=== PATIENT | female | born 1965 | race Caucasian/White ===

== ENCOUNTER 2018-03-26 16:59 | Emergency (ER) | payer BC ==
[2018-03-26 18:14] LABS: Absolute Lymphocytes (CBC) 1.6 K/uL (0.7-4.9); Absolute Monocytes 0.7 K/uL (0.1-1.3); Absolute Neutrophil 6.9 K/uL (1.8-8.0); Basophils % 0.8 % (0-1.3); Eosinophils % 0.7 % (0-4.4); Hematocrit 31.3 % (36.0-45.0); Lymphocytes % 16.9 % (15.3-44.8); MCH 28.6 pg (27.0-35.0); MPV 7.4 fL (7.6-11.3); Monocytes % 7.6 % (3.3-12.3)
[2018-03-26 18:16] LABS: Urine Blood NEGATIVE (NEG); Urine Glucose NEGATIVE (NEG); Urine Protein NEGATIVE (NEG); Urine Specific Gravity 1.025 (1.005-1.030); Urine pH 5.5 (5.0-7.0)
[2018-03-26] MEDS ORDERED: ONDANSETRON 4 MG/2 ML VIAL ONE (18:18)
[2018-03-26] MEDS ORDERED: MORPHINE 4 MG/ML SYR ONE (18:18)
[2018-03-26] MEDS ORDERED: NA CHLORIDE 0.9% 1,000 ML ONE (18:18)
[2018-03-26 18:25] LABS: Urine RBC NONE SEEN /HPF (NONE SEEN)
[2018-03-26 18:26] LABS: Urine Bacteria 20-50 /HPF (<20); Urine Culture Reflex Order NOT NEEDED; Urine Mucus 3+ /HPF (NONE SEEN)
[2018-03-26 18:31] LABS: ALT/SGPT 18 U/L (12-78); AST/SGOT 12 U/L (15-37); Alkaline Phosphatase 78 U/L (45-117); Amylase Level 55 U/L (25-115); BUN Blood Urea Nitrogen 7 mg/dL (7-18); Bicarbonate 28 mmol/L (21-32); Bilirubin Direct 0.1 mg/dL (0-0.2); Bilirubin Total 0.3 mg/dL (0.2-1.0); Glucose Level 92 mg/dL (74-106); Lipase 167 U/L (73-393); Potassium 3.6 mmol/L (3.5-5.1); Protein, Total 7.4 g/dL (6.4-8.2); Sodium Level 139 mmol/L (136-145)
--- NOTE | 2018-03-26 18:31 | RAD REPORT ---
EXAM DESCRIPTION: US - Abdomen Exam Limited - 03/26/2018 6:24 pm CLINICAL HISTORY: RUQ pain COMPARISON: Abdomen Exam Limited dated 12/07/2016 FINDINGS: The gallbladder demonstrates sludge and gallstones. No pericholecystic fluid or gallbladde r wall thickening. The common bile duct is normal measuring 4 mm. The liver demonstrates no findings of intrahepatic biliary dilatation. IMPRESSION: Cholelithiasis.
--- NOTE | 2018-03-26 19:59 | ER ---
Nurse's Notes [facility] Name: Stephanie Doshi Age: 53 yrs Sex: Female : 1965 Arrival Date: 03/26/2018 Time: 17:02 Bed 28 Private MD: Jamie Conti Diagnosis: Pain localized to upper abdomen Presentation: 03/26 17:09 Presenting complaint: Patient states: rectal bleeding, N/V, generalized abd pain that aa5 began today. Pt states "I am having a Crohns flare up". Transition of care: patient was not received from another setting of care. Onset of symptoms was March 26, 2018. Risk Assessment: Do you want to hurt yourself or someone else? Patient reports no desire to harm self or others. Initial Sepsis Screen: Does the patient meet any 2 criteria? No. Patient's initial sepsis screen is negative. Does the patient have a suspected source of infection? No. Patient's initial sepsis screen is negative. Care prior to arrival: None. 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 - Social history:: Smoking status: Patient uses tobacco products, 1 pack/week, Patient/guardian denies using alcohol, street drugs, The patient lives with family. - Ebola Screening: : No symptoms or risks identified at this time. - Family history:: not pertinent. Screenin:38 Abuse screen: Denies threats or abuse. Denies injuries from another. Nutritional kr2 screening: No deficits noted. Tuberculosis screening: No symptoms or risk factors identified. Fall Risk None identified. Assessment: 17:35 General: Appears in no apparent distress. uncomfortable, well groomed, well developed, kr2 well nourished, Behavior is calm, cooperative, appropriate for age. Pain: Complains of pain in abdomen Pain currently is 9 out of 10 on a pain scale. Quality of pain is described as crampy, tender, Pain began February 22, patient was seen by Dr. Nicole on March 04, given medications for colitis flare up, but has not had any improvement. Neuro: Level of Consciousness is awake, alert, obeys commands, Oriented to person, place, time, situation, Appropriate for age. Cardiovascular: Capillary refill < 3 seconds in bilateral fingers Patient's skin is warm and dry. Respiratory: Airway is patent Respiratory effort is even, unlabored, Respiratory pattern is regular, symmetrical. GI: Abdomen is flat, non-distended, Bowel sounds present X 4 quads. Abd is soft X 4 quads Abdomen is tender to palpation X 4 quads. Reports diarrhea, bloody stool, tarry stools. : Denies burning with urination. Derm: Skin is intact, is healthy with good turgor, Skin is pink, warm \\T\\ dry. Musculoskeletal: Circulation, motion, and sensation intact. 17:50 Reassessment: Patient appears in no apparent distress at this time. Patient and/or kr2 family updated on plan of care and expected duration. Pain level reassessed. Patient is alert, oriented x 3, equal unlabored respirations, skin warm/dry/pink. Patient had bowel movement, black tarry stool, sample collected and shown to provider, Dr. Mcclendon. Provider does not want to send sample for laboratory testing at this time. 18:45 Reassessment: Patient appears in no apparent distress at this time. Patient and/or kr2 family updated on plan of care and expected duration. Pain level reassessed. Patient is alert, oriented x 3, equal unlabored respirations, skin warm/dry/pink. Pain has decreased. 20:12 Reassessment: Patient appears in no apparent distress at this time. Patient and/or kr2 family updated on plan of care and expected duration. Pain level reassessed. Patient is alert, oriented x 3, equal unlabored respirations, skin warm/dry/pink. Patient states feeling better. Vital Signs: 17:11 BP 158 / 99; Pulse 93; Resp 16 S; Temp 98.0(TE); Pulse Ox 98% on R/A; Weight 63.5 kg aa5 (R); Height 5 ft. 2 in. (157.48 cm) (R); Pain 9/10; 18:45 BP 144 / 88; Pulse 80; Resp 17; Pulse Ox 97% on R/A; kr2 20:13 BP 136 / 86; Pulse 80; Resp 17; Pulse Ox 99% on R/A; kr2 17:11 Body Mass Index 25.61 (63.50 kg, 157.48 cm) aa5 ED Course: 17:02 Patient arrived in ED. mr 17:02 Jamie Conti MD is Private Physician. mr 17:09 Arm band placed on. aa5 17:10 Triage completed. aa5 17:15 Zuly Eckert, WOLF is Primary Nurse. kr2 17:38 Patient has correct armband on for positive identification. Bed in low position. Call kr2 light in reach. Side rails up X 1. Pulse ox on. NIBP on. Door closed. Lights dimmed. Warm blanket given. Pillow given. Head of bed elevated. 17:47 Ron Mcclendon MD is Attending Physician. ma2 17:55 Inserted saline lock: 20 gauge in left antecubital area, using aseptic technique. Blood kr2 collected. 17:55 Urine collected: clean catch specimen, clear. kr2 18:24 US Abdomen Limited In Process Unspecified. EDMS 20:12 No provider procedures requiring assistance completed. IV discontinued, intact, kr2 bleeding controlled, No redness/swelling at site. Pressure dressing applied. Administered Medications: 18:26 Drug: Zofran 4 mg Route: IVP; Site: left antecubital; kr2 18:46 Follow up: Response: No adverse reaction; Nausea is decreased kr2 18:26 Drug: morphine 4 mg Route: IVP; Site: left antecubital; kr2 18:46 Follow up: Response: No adverse reaction kr2 18:46 Follow up: Response: Pain is decreased kr2 18:27 Drug: NS 0.9% 1000 ml Route: IV; Rate: 1 bolus; Site: left antecubital; kr2 19:30 Follow up: Response: No adverse reaction; IV Status: Completed infusion kr2 Outcome: 19:58 Discharge ordered by . ma2 20:12 Discharged to home ambulatory, with family. kr2 20:12 Condition: stable 20:12 Discharge instructions given to patient, family, Instructed on discharge instructions, follow up and referral plans. medication usage, Demonstrated understanding of instructions, follow-up care, medications, Prescriptions given X 2. 20:14 Patient left the ED. kr2 Signatures: Dispatcher [employer] [facility] Monique Avery mr AdamGaye, RN RN aa5 Zuly Eckert RN RN kr2 Ron Mcclendon MD MD ma2 Corrections: (The following items were deleted from the chart) 18:42 17:35 GI: Abdomen is flat, non-distended, Bowel sounds present X 4 quads. Abd is soft X kr2 4 quads Abdomen is tender to palpation X 4 quads. kr2
--- NOTE | 2018-03-26 19:59 | EDPHYS ---
Physician Documentation [facility] Name: Stephanie Doshi Age: 53 yrs Sex: Female : 1965 Arrival Date: 03/26/2018 Time: 17:02 Bed 28 Private MD: Jamie Conti ED Physician Ron Mcclendon HPI: 03/26 17:59 This 53 yrs old Female presents to ER via Ambulatory with complaints of ma2 Rectal Bleeding. 17:59 Onset: The symptoms/episode began/occurred gradually, 2 week(s) ago. Modifying factors: ma2 The symptoms are aggravated by food. Associate signs and symptoms: Pertinent positives: abdominal pain in the epigastric area, vomiting, Pertinent negatives: dysuria, fever. The patient has not experienced similar symptoms in the past. hx of crohns d/s has been having abd pain and melena for 2 weeks saw her gi and was started on abx and completed 5 days of prednisone, yet her pain got worse and started to have vomiting today, has been having melena x 2 weeks, no fever no symptoms of anemia . 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 - Social history:: Smoking status: Patient uses tobacco products, 1 pack/week, Patient/guardian denies using alcohol, street drugs, The patient lives with family. - Ebola Screening: : No symptoms or risks identified at this time. - Family history:: not pertinent. ROS: 17:59 Constitutional: Negative for fever, chills, and weight loss, Eyes: Negative for injury, ma2 pain, redness, and discharge, ENT: Negative for injury, pain, and discharge, Cardiovascular: Negative for chest pain, palpitations, and edema, Respiratory: Negative for shortness of breath, cough, wheezing, and pleuritic chest pain, : Negative for injury, bleeding, discharge, and swelling, MS/Extremity: Negative for injury and deformity, Neuro: Negative for headache, weakness, numbness, tingling, and seizure. 17:59 Abdomen/GI: Positive for abdominal pain, vomiting, abdominal cramps, black/tarry stool, Negative for constipation, hematemesis. Exam: 17:59 Constitutional: This is a well developed, well nourished patient who is awake, alert, ma2 and in no acute distress. Head/Face: Normocephalic, atraumatic. Chest/axilla: Normal chest wall appearance and motion. Nontender with no deformity. No lesions are appreciated. Cardiovascular: Regular rate and rhythm with a normal S1 and S2. No gallops, murmurs, or rubs. Normal PMI, no JVD. No pulse deficits. Respiratory: Lungs have equal breath sounds bilaterally, clear to auscultation and percussion. No rales, rhonchi or wheezes noted. No increased work of breathing, no retractions or nasal flaring. 17:59 Abdomen/GI: Inspection: abdomen appears normal, Palpation: soft, moderate abdominal tenderness, in the epigastric area and right upper quadrant, Liver: no appreciated palpable abnormalities, Hernia: not appreciated. Vital Signs: 17:11 BP 158 / 99; Pulse 93; Resp 16 S; Temp 98.0(TE); Pulse Ox 98% on R/A; Weight 63.5 kg aa5 (R); Height 5 ft. 2 in. (157.48 cm) (R); Pain 9/10; 18:45 BP 144 / 88; Pulse 80; Resp 17; Pulse Ox 97% on R/A; kr2 20:13 BP 136 / 86; Pulse 80; Resp 17; Pulse Ox 99% on R/A; kr2 17:11 Body Mass Index 25.61 (63.50 kg, 157.48 cm) aa5 MDM: 17:47 Patient medically screened. ma2 17:59 Differential diagnosis: cohns flare, GE, gastritis vs PUD, vs acute pan. ma2 19:57 Data reviewed: vital signs, nurses notes, EMS record, intermediate records, lab test ma2 result(s), radiologic studies. Counseling: I had a detailed discussion with the patient and/or guardian regarding: the historical points, exam findings, and any diagnostic results supporting the discharge/admit diagnosis, the presence of at least one elevated blood pressure reading (>120/80) during this emergency department visit, lab results, radiology results, the need for outpatient follow up. Response to treatment: the patient's symptoms have resolved after treatment. 03/26 17:48 Order name: Amylase, Serum; Complete Time: 19:48 ma2 03/26 17:48 Order name: Basic Metabolic Panel; Complete Time: 19:48 ma2 03/26 17:48 Order name: CBC with Diff; Complete Time: 19:48 ma2 03/26 17:48 Order name: Creatinine for Radiology; Complete Time: 19:48 ma2 03/26 17:48 Order name: Hepatic Function; Complete Time: 19:48 ma2 03/26 17:48 Order name: Lipase; Complete Time: 19:48 ma2 03/26 17:48 Order name: Urine Microscopic Only; Complete Time: 19:48 ma2 03/26 17:48 Order name: IV Saline Lock; Complete Time: 17:57 ma2 03/26 17:48 Order name: Type And Screen; Complete Time: 19:48 ma2 03/26 17:59 Order name: US Abdomen Limited; Complete Time: 19:48 ma2 03/26 18:07 Order name: Urine Dipstick--Ancillary (enter results); Complete Time: 19:48 bd 03/26 17:48 Order name: Labs collected and sent; Complete Time: 17:57 ma2 03/26 17:48 Order name: Urine Dipstick-Ancillary (obtain specimen); Complete Time: 18:21 ma2 Administered Medications: 18:26 Drug: Zofran 4 mg Route: IVP; Site: left antecubital; kr2 18:46 Follow up: Response: No adverse reaction; Nausea is decreased kr2 18:26 Drug: morphine 4 mg Route: IVP; Site: left antecubital; kr2 18:46 Follow up: Response: No adverse reaction kr2 18:46 Follow up: Response: Pain is decreased kr2 18:27 Drug: NS 0.9% 1000 ml Route: IV; Rate: 1 bolus; Site: left antecubital; kr2 19:30 Follow up: Response: No adverse reaction; IV Status: Completed infusion kr2 Disposition: 03/26/18 19:58 Discharged to Home. Impression: Pain localized to upper abdomen. - Condition is Stable. - Prescriptions for Zofran 4 mg Oral Tablet - take 1 tablet by ORAL route every 12 hours As needed; 20 tablet. Pepcid 20 mg Oral Tablet - take 1 tablet by ORAL route once daily for 10 days; 10 tablet. - Work release form, Medication Reconciliation Form, Thank You Letter, Antibiotic Education, Prescription Opioid Use form. - Follow up: Private Physician; When: Tomorrow; Reason: Continuance of care. - Problem is new. - Symptoms have improved. Signatures: Dispatcher [employer] [facility] Gaye Medina RN RN aa5 Zuly Eckert RN RN kr2 Ron Mcclendon MD MD ma2 Corrections: (The following items were deleted from the chart) 20:14 19:58 03/26/2018 19:58 Discharged to Home. Impression: Pain localized to upper abdomen. kr2 Condition is Stable. Forms are Medication Reconciliation Form, Thank You Letter, Antibiotic Education, Prescription Opioid Use. Follow up: Private Physician; When: Tomorrow; Reason: Continuance of care. Problem is new. Symptoms have improved. ma2
[2018-03-26 20:19] VITALS: TEMP 98
[2018-03-26 20:22] VITALS: BP 136/86; O2SAT 99
== END 2018-03-26 20:14 | disposition home or self-care (01) ==
LOC: ER 16:59
DX: R10.10 Upper abdominal pain, unspecified (principal); K50.90 Crohn's disease, unspecified, without complications; Z72.0 Tobacco use; Z88.5 Allergy status to narcotic agent
CPT/HCPCS: 36415; 76705; 80048; 80076; 81003; 81015; 82150; 83690; 85025; 86850; 86900; 86901; 96361; 96374; 96375; 99284; J2405; J7030

== ENCOUNTER 2019-03-12 19:24 | Inpatient (IN) | payer BC ==
[2019-03-12 21:14] LABS: Absolute Lymphocytes (CBC) 1.8 K/uL (0.7-4.9)
[2019-03-12 21:29] LABS: Basophils % 0.4 % (0-1.3); Lymphocytes % 14.8 % (15.3-44.8); MPV 7.8 fL (7.6-11.3); RBC Red Blood Cell Count 3.77 M/uL (3.86-4.86)
[2019-03-12 21:30] LABS: Albumin 3.1 g/dL (3.4-5.0); Bilirubin Total 0.3 mg/dL (0.2-1.0); Potassium 3.8 mmol/L (3.5-5.1); Protein, Total 8.5 g/dL (6.4-8.2)
[2019-03-12] MEDS ORDERED: SODIUM CHLORIDE 0.9% 10ML INJ IV PRN (21:48)
[2019-03-12] MEDS ORDERED: ACETAMINOPHEN 500 MG TAB PO PRN (21:51)
[2019-03-12] MEDS ORDERED: MAGNESIUM HYDROXIDE 8% 30 ML PO PRN (21:51)
[2019-03-12] MEDS ORDERED: MAGNES/ALUMIN/SIMET 30ML UCUP PO PRN (21:51)
[2019-03-12 22:11] VITALS: BMI 27.3
[2019-03-12] MEDS: D5 0.9 NS 1,000 ML IV SCH (22:29)
[2019-03-12] MEDS: Levofloxacin500mg IV 500 MG/100 ML BAG IV SCH (22:41)
[2019-03-12] MEDS: ONDANSETRON 4 MG/2 ML VIAL IV PRN (22:41)
[2019-03-12] MEDS: MEPERIDINE HCL 25 MG/0.5 ML IV PRN (22:42)
[2019-03-12 23:53] LABS: Ferritin 80.2 ng/mL (8-388); Folic Acid, (Folate) > 20.0 ng/mL (3.1-17.5); Transferrin 245 mg/dL (200-360)
[2019-03-13] MEDS: METRONIDAZOLE 500mg IVPB 500 MG/100 ML BAG IV SCH ×3 (00:38→16:31)
[2019-03-13] MEDS: ALPRAZOLAM 0.25 MG TABLET PO PRN (00:39)
--- NOTE | 2019-03-13 04:22 | HP ---
Date of Admission: 03/12/2019 Chief Complaint: Abdominal pain. History Of Present Illness: This is a 54-year-old pleasant female patient with ulcerative colitis wh o has been under care of Dr. Nicole. The patient takes azathioprine and budesonide per Dr. Nicole. She was on Humira, but she stopped taking it as it was not helping her. The patient says that since Humira was not helping, Dr. Nicole has suggested her to start different medication called cherelle Wagner this medication treatment is very expensive. She saw Dr. Nicole last time was over a month ago. I n last 2 weeks, she was having left-sided abdominal pain, reported as having hard stool in the last f ew days, but today she had soft stool. Denies any bleeding per rectum. Last week, she felt like hav ing fever and she was not getting any better further, so she decided to come see me. She also inform ed me that she is going to change her GI physician to a different GI specialist in [facility], Dr. Candy hong, as she got some recommendation from her friend. She denies any vomiting, but has nausea. Her pain is worse today compared to last 2 weeks, and she describes her pain as constant, worse with acti vity. Has very poor appetite. After I evaluated her, decision was made to admit her to the hospital . Allergies: TO CODEINE, HYDROCODONE, AND MORPHINE, AND ALL THESE MEDICATIONS CAUSES NAUSEA, VOMITING TYPE OF SIDE EFFECT. Medications: Omeprazole 20 mg daily, sertraline 25 mg daily, Caltrate plus D 1 tablet 2 times a day, budesonide 3 mg 3 times a day, azathioprine 50 mg 3 times a day. Review of Systems: GI: As mentioned above. Constitutional: As mentioned above. All other systems reviewed and negative. Past Medical History: Ulcerative colitis, anxiety, depression, impaired fasting glucose, hypothyroid ism, hyperlipidemia. Past Surgical History: Tubal ligation. Family History: Significant for hypertension and diabetes. Social History: Negative for smoking, alcohol use. Physical Examination: Vital Signs: When she came into office today, height 5 feet 2 inches, weight 150 pounds, blood press ure 121/81, respiratory rate 18, pulse 105, temperature 97.2. General: Awake, alert, oriented, not in distress. HEENT: Head atraumatic, normocephalic. Conjunctivae nonerythematous. Sclerae white. Mouth, no thr ush or edema noted. Ears/Nose, no mass, lesion, discharge noted. Neck: Supple. No JVD, lymph nodes, bruit, thyromegaly noted. Lungs: Bilateral good equal air entry. Clear to auscultation. No rhonchi. No rales. Heart: Normal heart sounds, no murmur or gallop. Abdomen: Soft. Bowel sounds hypoactive. Abdomen appears to be distended and has severe tenderness in left upper and left lower quadrant, and no rebound tenderness. No hepatosplenomegaly. No bruit. Extremities: No leg edema. No calf tenderness. Skin: No rash, ulcer, cellulitis. Lymphatics: No lymph node enlargement in neck, supraclavicular, infraclavicular region. Neuro: No focal neurological deficit. Chest: Unremarkable. External Genitalia: Deferred. Rectal: Deferred. Laboratory Data: White count 12.4, hemoglobin 9.5, platelets 505, MCV and MCH low. Sodium 137, pota ssium 3.8, chloride 102, bicarb 27, BUN 13, creatinine 0.72, glucose 98. Lactic acid 0.7. Liver fun ction tests unremarkable. Procalcitonin less than 0.05. Impression: 1.Ulcerative colitis, with acute exacerbation. 2.Abdominal pain secondary to above. 3.Anemia, likely iron-deficiency anemia. 4.Anxiety. 5.Depression. 6.Impaired fasting glucose. 7.Hypothyroidism. 8.Hyperlipidemia. Plan: Admit the patient to hospital for further evaluation and management of this problem. The [facility] is appropriate for inpatient and is expected to spend 2 midnights in hospital. We will continue home medications per order. Keep the patient n.p.o. except ice chips and water and oral medications. We will go ahead and give IV pain medication, nausea medication, and IV antibiotics will be started . SCD was ordered for DVT prophylaxis. We will get abdominal x-ray done tonight and tomorrow anne-marie leone. We will go ahead and order CT scan of abdomen with contrast. The patient has had lunch today, so we will not do any CT scan until tomorrow morning. Empiric antibiotics using Levaquin and metronida zole will be started, and we will consider using steroid depending on the CT scan result. Details an d plan of treatment discussed with the patient. Chest x-ray done today does not show any acute blackman es. Abdominal x-ray results reviewed. No evidence of any bowel obstruction. No acute findings. MIKE/MODL Voice ID: [id number]
[2019-03-13] MEDS: PANTOPRAZOLE 40 MG INJ IVP SCH (08:14)
[2019-03-13] MEDS: ONDANSETRON 4 MG/2 ML VIAL IV PRN ×2 (08:15→12:42)
[2019-03-13] MEDS: MEPERIDINE HCL 25 MG/0.5 ML IV PRN (08:15)
[2019-03-13 08:18] LABS: Urine Appearance CLEAR; Urine Bilirubin NEGATIVE (NEG); Urine Blood NEGATIVE (NEG); Urine Color YELLOW; Urine Glucose NEGATIVE (NEG); Urine Protein NEGATIVE (NEG); Urine Specific Gravity 1.025 (1.005-1.030); Urine Urobilinogen 0.2 mg/dL (0.2-1.0); Urine pH 5.5 (5.0-7.0)
[2019-03-13 08:58] LABS: Urine Bacteria 20-50 /HPF (<20); Urine Culture Reflex Order REFLEXED; Urine Mucus 2+ /HPF (NONE SEEN); Urine RBC <5 /HPF (NONE SEEN)
--- NOTE | 2019-03-13 10:11 | RAD REPORT ---
EXAM DESCRIPTION: CT - Abdomen Pelvis W Contrast - 03/13/2019 8:41 am CLINICAL HISTORY: Abdominal pain. COMPARISON: 2018 TECHNIQUE: Computed axial tomography of the abdomen and pelvis was obtained. 100 cc Isovue-300 is ad ministered intravenously. Oral contrast was given. All CT scans are performed using dose optimization technique as appropriate and may include automated exposure control or mA/KV adjustment according to patient size. FINDINGS: The liver, spleen, pancreas, adrenals and kidneys appear unremarkable. Cholelithiasis. Gallbladder wall appears thickened. Marked thickening of the wall of the distal transverse and descending colon. Stranding is present wit hin the adjacent fat. Pneumatosis intestinalis is not noted. IMPRESSION: Marked left colitis. Referring physician notified 10:05 a.m. on March 13, 2019 Cholelithiasis with apparent gallbladder wall thickening
[2019-03-13] MEDS: D5 0.9 NS 1,000 ML IV SCH ×3 (10:20→23:40)
--- NOTE | 2019-03-13 10:32 | RAD REPORT ---
EXAM DESCRIPTION: RAD - Chest Pa And Lat (2 Views) - 03/13/2019 9:58 am CLINICAL HISTORY: ulcerative colitis Chest pain. COMPARISON: Abdomen Acute Series dated 03/12/2019; Chest Pa And Lat (2 Views) dated 08/11/2016; Chest Single View dated 06/29/2016; ABDOMEN ACUTE SERIES dated 06/01/2015 FINDINGS: A small area of triangular nodularity is seen projecting on the lateral view anteriorly, w ithout clear correlate on the frontal projection. This appears new since prior study and may represen t atelectasis or a small pulmonary nodule. No focal infiltrate suspected. The heart is normal in size . No displaced fractures. CT chest followup assessment may be considered.
[2019-03-13] MEDS ORDERED: KCL 20 MEQ/100 mL IVPB 20 MEQ/100 ML BAG IV SCH (11:00)
--- NOTE | 2019-03-13 11:35 | RAD REPORT ---
EXAM DESCRIPTION: RAD - Abdomen Acute Series - 03/12/2019 10:10 pm CLINICAL HISTORY: Abd pain, ulcerative colitis COMPARISON: None. FINDINGS: The single view of the chest shows no parenchymal opacities, pleural effusions or pneumoth orax. The heart size and pulmonary vasculature are normal. The supine and upright abdominal radiographs show a non-obstructive bowel gas pattern. No pneumoperit oneum, air fluid levels, or mass effect. No radiopaque calculi or calcifications are noted. There is no evidence of hepatosplenomegaly. No clinically significant osseous abnormalities noted. Bony change s suggestive of cam type of impingement are noted in the hip joints bilaterally. IMPRESSION: Non-obstructive bowel gas pattern. Electronically signed by: Nita Garcia MD 03/12/2019 10:50 PM CDT Due to temporary technical issues with the PACS/Fluency reporting system, reports are being signed by the in house radiologist as a courtesy to ensure prompt reporting. The interpreting radiologist is f ully responsible for the content of the report.
[2019-03-13] MEDS: METHYLPREDNISOLONE 40 MG INJ IV SCH ×2 (15:00→18:00)
[2019-03-13] MEDS: MEPERIDINE HCL 25 MG/0.5 ML IVP PRN (15:00)
[2019-03-13] MEDS: Levofloxacin500mg IV 500 MG/100 ML BAG IV SCH (21:33)
[2019-03-14] MEDS: METHYLPREDNISOLONE 40 MG INJ IV SCH ×5 (00:06→23:38)
[2019-03-14] MEDS: METRONIDAZOLE 500mg IVPB 500 MG/100 ML BAG IV SCH ×3 (00:07→16:52)
[2019-03-14] MEDS: ALPRAZOLAM 0.25 MG TABLET PO PRN ×2 (00:12→23:38)
--- NOTE | 2019-03-14 01:16 | PN ---
Date of Progress Note: 03/13/2019 Subjective: Patient was seen this morning for followup. Her symptoms of abdominal pain remains unch anged. No new complaints or problems reported. Objective: Vital Signs: Reviewed. HEENT: Unremarkable. Lungs: Clear to auscultation. Heart: Sounds normal. Abdomen: Appears to be slightly distended like yesterday. Bowel sounds hypoactive. Tenderness pres ent on left side of abdomen, but better today than yesterday. No rebound tenderness. Extremities: No leg edema. Laboratory Data: Reviewed. CAT scan of abdomen and pelvis with contrast today was reported as moder ate amount of changes of colitis involving transverse and descending colon. No complication. Detail s were discussed with radiologist. Impression: 1.Ulcerative colitis, with acute exacerbation. 2.Anemia, iron deficiency. Plan: We will continue current medication. Continue IV antibiotics. We will go ahead and start IV steroids per order. I will see her tomorrow for followup and we will probably consider to start her on liquid diet starting tomorrow. Ambulation was encouraged. Pain medications will be continued. T his morning, she informed me that Demerol 12.5 mg dose was not helping her, so I have increase the do se to 25 mg. MIKE/MODL Voice ID: [id number] Report ID: [id number]
[2019-03-14 05:48] LABS: BUN Blood Urea Nitrogen 10 mg/dL (7-18); Bicarbonate 26 mmol/L (21-32); Glucose Level 150 mg/dL (74-106); Potassium 3.7 mmol/L (3.5-5.1); Sodium Level 141 mmol/L (136-145)
[2019-03-14] MEDS: D5 0.9 NS 1,000 ML IV SCH (06:40)
[2019-03-14] MEDS ORDERED: KCL 20 MEQ/100 mL IVPB 20 MEQ/100 ML BAG IV SCH (07:00)
[2019-03-14] MEDS ORDERED: POTASSIUM 25 MEQ EFFERV TAB PO ONE (07:46)
[2019-03-14] MEDS: PANTOPRAZOLE 40 MG INJ IVP SCH (09:11)
[2019-03-14] MEDS: ONDANSETRON 4 MG/2 ML VIAL IV PRN ×2 (09:15→16:49)
[2019-03-14] MEDS: Levofloxacin500mg IV 500 MG/100 ML BAG IV SCH (21:26)
[2019-03-14] MEDS: MEPERIDINE HCL 25 MG/0.5 ML IVP PRN (21:30)
[2019-03-15] MEDS: METRONIDAZOLE 500mg IVPB 500 MG/100 ML BAG IV SCH ×3 (01:57→17:05)
[2019-03-15] MEDS: MEPERIDINE HCL 25 MG/0.5 ML IVP PRN ×2 (06:07→15:03)
[2019-03-15] MEDS: METHYLPREDNISOLONE 40 MG INJ IV SCH ×3 (06:08→17:05)
[2019-03-15 06:13] LABS: Absolute Lymphocytes (CBC) 0.8 K/uL (0.7-4.9); Basophils % 0.2 % (0-1.3); Lymphocytes % 8.9 % (15.3-44.8); MPV 7.6 fL (7.6-11.3); RBC Red Blood Cell Count 3.53 M/uL (3.86-4.86)
[2019-03-15 06:40] LABS: BUN Blood Urea Nitrogen 8 mg/dL (7-18); Bicarbonate 29 mmol/L (21-32); Glucose Level 155 mg/dL (74-106); Magnesium 2.1 mg/dL (1.8-2.4); Potassium 3.9 mmol/L (3.5-5.1); Sodium Level 142 mmol/L (136-145)
[2019-03-15] MEDS: PANTOPRAZOLE 40 MG INJ IVP SCH (08:02)
[2019-03-15 08:18] LABS: Platelet Estimate ADEQ
[2019-03-15 08:19] LABS: Blood Morphology Comment NOT SEEN (NOT SEEN)
[2019-03-15] MEDS: D5 0.9 NS 1,000 ML IV SCH (08:39)
[2019-03-15] MEDS: ONDANSETRON 4 MG/2 ML VIAL IV PRN ×2 (08:41→15:03)
[2019-03-15 08:49] VITALS: O2SAT 99
[2019-03-15] MEDS ORDERED: POTASSIUM 25 MEQ EFFERV TAB PO ONE (09:00)
--- NOTE | 2019-03-15 16:50 | PN ---
Date of Progress Note: 03/14/2019 Subjective: Patient was seen this morning for followup. No new complaints or problems reported. Ov erall, she feels better. Has several loose watery diarrhea stool. No vomiting. Abdominal pain is b lexii. She is ambulating well. Objective: Vital Signs: Reviewed. HEENT: Examination unremarkable. Lungs: Clear to auscultation. No rhonchi. No rales. Heart: Sounds normal. Abdomen: Soft. Abdominal distention has improved significantly and no guarding. No rigidity. No r ebound tenderness. Bowel sounds normal. Left-sided tenderness is present, but significantly better. Extremities: No leg edema. Laboratory Data: No new blood work today. CAT scan from yesterday, results reviewed with the arya mcguire. Impression: 1.Ulcerative colitis, with acute exacerbation. 2.Anemia, iron-deficiency anemia. Plan: We will continue current IV fluids, IV antibiotics and IV steroid was started after the CAT sc an result. We will continue that. She has shown significant improvement with her symptoms and physi candido findings. We will start her on clear liquid diet today. Ambulation was encouraged. I will see her tomorrow for followup. MIKE/MODL Voice ID: [id number] Report ID: [id number]
--- NOTE | 2019-03-15 17:04 | PN ---
Date of Progress Note: 03/15/2019 Subjective: Patient was seen this morning for followup. No new complaints or problems reported by amanda evans. Lying in bed, not in any distress. Her was with her at bedside. Objective: HEENT: Unremarkable. Lungs: Clear to auscultation. Heart: Sounds normal. Abdomen: Soft. Bowel sounds normal. No guarding, rigidity. No tenderness. No distention. Extremities: No leg edema. Laboratory Data: Sodium 142, potassium 3.9, chloride 107, bicarb 29, BUN 8, creatinine 0.58, glucose 155, magnesium 2.1. White count 8.9, hemoglobin 9.4, platelets 549. Impression: 1.Ulcerative colitis, with acute exacerbation. 2.Iron deficiency anemia. Plan: We will go ahead and continue current medications. Continue IV antibiotics, which are Levaqui n and metronidazole. We will also continue IV steroid. Advance diet to full liquid diet for lunch t omi and if she tolerates that, we will advance it to soft diet for supper. Ambulation was encourage d and we will go ahead and discontinue IV fluid. We will see her tomorrow for followup, possible dis charge to go home tomorrow. MIKE/MODL Voice ID: [id number] Report ID: [id number]
[2019-03-15] MEDS: Levofloxacin500mg IV 500 MG/100 ML BAG IV SCH (21:15)
[2019-03-15] MEDS: ALPRAZOLAM 0.25 MG TABLET PO PRN (21:15)
[2019-03-16] MEDS: METRONIDAZOLE 500mg IVPB 500 MG/100 ML BAG IV SCH ×2 (00:50→08:15)
[2019-03-16] MEDS: METHYLPREDNISOLONE 40 MG INJ IV SCH ×2 (00:50→05:45)
[2019-03-16] MEDS: MEPERIDINE HCL 25 MG/0.5 ML IVP PRN (00:59)
[2019-03-16] MEDS: PANTOPRAZOLE 40 MG INJ IVP SCH (08:19)
[2019-03-16 08:25] VITALS: BP 144/68; TEMP 97
--- NOTE | 2019-03-17 04:19 | DS ---
Date of Discharge: 03/16/2019 Physical Examination: HEENT: Unremarkable. Lungs: Clear to auscultation. Heart: Sounds normal. Abdomen: Soft. Bowel sounds normal. No guarding, rigidity, tenderness, or distention. Extremities: No leg edema. Disposition: Discharged to go home. Discharge Medications And Instructions: 1.Continue all prior home medications. 2.Follow up with your GI physician, Dr. Mae on 03/26/2019 as per your appointment. 3.Follow up at my office either on 03/27/2019 or 03/28/2019 and patient to call for appointment. 4.Levaquin 500 mg daily. 5.Metronidazole 500 mg 3 times a day with food for 10 days. 6.Take prednisone 10 mg. Patient is to take 3 tablets daily for 1 week, then 2 tablets daily for 1 week, then 1 tablet daily for 1 week, then 1/2 tablet daily for 1 week and patient to take it with fo od. Further reduction on prednisone will be decided upon at the office when I see her. Laboratory Data And Investigation: Done during this hospitalization. Initial white count 12.4 on with hemoglobin 9.5, platelets 505, repeat white count yesterday 8.9, hemoglobin 9.4, platel ets 549. Last chemistry, today sodium 142, potassium 4, chloride 108, bicarb 28, BUN 16, creatinine 0.68, glucose 128. Ferritin 80, iron low at 13, TIBC 343. B12 level 515, folic acid level more than 20. Procalcitonin less than 0.05. Her CAT scan of abdomen and pelvis done day after admission to the hospital shows marked left-sided c olitis involving transverse and descending colon and presence of gallstone with apparent gallbladder wall thickening, but clinically, patient does not have any signs of any gallbladder disease. Hospital Course: This is a 54-year-old female patient presented to office with acute exacerbation of her colitis problem. Patient came in with left-sided abdominal pain. She has ulcerative colitis an d has been under care of Dr. Nicole, but she has now decided to see another GI physician since she is not improving as she says under care of Dr. Nicole. She came into office with 2 weeks history of wo rsening problem after she was evaluated at office, she was admitted to the hospital. Patient had acu te exacerbation of her ulcerative colitis. After admission, we did routine labs, started her on IV f luid, IV antibiotics, and pain medication. She was kept n.p.o. in the beginning. After CAT scan res ult was available, we started her on IV steroid. With all these treatment, patient started to show i mprovement. Her abdominal pain got better. Abdominal distention got better. She was started on ruth ar liquid diet and we advanced it slowly over period of this hospitalization. She is ambulating well . She has had some diarrhea during this hospitalization, which has improved now. Chest x-ray was un remarkable. 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 Patient will keep that appointment and I will see her at office after she sees the GI physician in about 2 weeks and at that time, we will decide about further reduction on the prednisone, but she amy l go home with instruction as per today. Final Diagnoses: 1.Ulcerative colitis with acute exacerbation. 2.Abdominal pain secondary to above. 3.Anemia, due to iron deficiency. 4.Anxiety. 5.Depression. 6.Gallstones. 7.Impaired fasting glucose. 8.Hypothyroidism. 9.Hyperlipidemia. MIKE/MODL Voice ID: [id number] Report ID: [id number]
== END 2019-03-16 11:25 | disposition home or self-care (01) | DRG 387 ==
LOC: 2ND 20:01
PROVIDERS: ADMIT Internal Medicine; ATTEND Internal Medicine
DX: K51.90 Ulcerative colitis, unspecified, without complications (principal); D50.9 Iron deficiency anemia, unspecified; F41.8 Other specified anxiety disorders; K80.80 Other cholelithiasis without obstruction; R73.01 Impaired fasting glucose; E03.9 Hypothyroidism, unspecified; E78.5 Hyperlipidemia, unspecified
CPT/HCPCS: 36415; 71046; 74022; 74177; 80048; 80053; 81001; 82607; 82728; 82746; 83540; 83605; 83735; 84145; 84466; 85025; 87086; 87088; C9113; J2175; J2405; J2920; Q9967

== ENCOUNTER 2019-03-21 14:00 | Emergency (ER) | payer BC ==
[2019-03-21 15:01] LABS: Absolute Lymphocytes (CBC) 2.6 K/uL (0.7-4.9); Basophils % 0.6 % (0-1.3); Hematocrit 32.6 % (36.0-45.0); Lymphocytes % 18.5 % (15.3-44.8); MPV 7.9 fL (7.6-11.3); RBC Red Blood Cell Count 4.16 M/uL (3.86-4.86)
[2019-03-21] MEDS ORDERED: ONDANSETRON 4 MG/2 ML VIAL ONE (15:02)
[2019-03-21] MEDS ORDERED: PANTOPRAZOLE 40 MG INJ ONE (15:02)
[2019-03-21] MEDS ORDERED: MORPHINE 4 MG/ML SYR ONE ×3 (15:02→19:42)
[2019-03-21] MEDS ORDERED: DICYCLOMINE HCL 20 MG/2 ML AMP IM ONE (15:13)
[2019-03-21 15:17] LABS: Protime INR 1.07
--- NOTE | 2019-03-21 15:28 | RAD REPORT ---
EXAM DESCRIPTION: US - Abdomen Exam Limited - 03/21/2019 3:19 pm CLINICAL HISTORY: ABD PAIN COMPARISON: Abdomen Exam Limited dated 03/26/2018 FINDINGS: The gallbladder demonstrates sludge and gallbladder stones. No pericholecystic fluid or ga llbladder wall thickening. The common bile duct is normal measuring 3 mm. The liver demonstrates no findings of intrahepatic biliary dilatation. IMPRESSION: Sludge and gallbladder stones.
[2019-03-21 15:34] LABS: ALT/SGPT 18 U/L (12-78); AST/SGOT 10 U/L (15-37); Albumin 3.2 g/dL (3.4-5.0); Alkaline Phosphatase 97 U/L (45-117); BUN Blood Urea Nitrogen 9 mg/dL (7-18); Bicarbonate 25 mmol/L (21-32); Bilirubin Direct < 0.1 mg/dL (0-0.2); Bilirubin Total 0.3 mg/dL (0.2-1.0); Glucose Level 101 mg/dL (74-106); Lipase 146 U/L (73-393); Potassium 3.8 mmol/L (3.5-5.1); Protein, Total 7.4 g/dL (6.4-8.2); Sodium Level 137 mmol/L (136-145)
[2019-03-21 16:24] LABS: Urine Bacteria 20-50 /HPF (<20); Urine Culture Reflex Order REFLEXED; Urine RBC <5 /HPF (NONE SEEN)
[2019-03-21 16:54] LABS: Urine Blood NEGATIVE (NEG); Urine Glucose NEGATIVE (NEG); Urine Protein NEGATIVE (NEG)
--- NOTE | 2019-03-21 17:30 | RAD REPORT ---
EXAM DESCRIPTION: CTAbdomen Pelvis W Contrast - 03/21/2019 5:21 pm CLINICAL HISTORY: Abdominal pain. ABD PAIN COMPARISON: <Comparisons> TECHNIQUE: Biphasic CT imaging of the abdomen and pelvis was performed with 100 ml non-ionic IV cont rast. All CT scans are performed using dose optimization technique as appropriate and may include automated exposure control or mA/KV adjustment according to patient size. FINDINGS: The lung bases are clear.Multiple gallstones are present in the gallbladder. The liver, spleen, pancreas, adrenal glands and kidneys are within normal limits. There is significant inflammation involving the colon particularly descending colon. The splenic flex ure show significant inflammatory changes with proximal upstream dilatation and thickening of the col on and retention of fecal material and fluid. The appendix is not identified as a discrete structure , however, no secondary findings of appendicitis are identified. No evidence of significant lymphad enopathy. No suspicious bony findings. IMPRESSION: Significant colon inflammation particularly involving the splenic flexure and descending colon seen compatible with colitis. There is quite significant upstream dilatation of the transverse colon with wall thickening and retained stool noted. Cholelithiasis.
--- NOTE | 2019-03-21 19:34 | ER ---
Nurse's Notes [facility] Name: Stephanie Doshi Age: 54 yrs Sex: Female : 1965 Arrival Date: 03/21/2019 Time: 14:02 Bed 30 Private MD: Jamie Conti Diagnosis: Infectious gastroenteritis and colitis, unspecified Presentation: 03/21 14:14 Presenting complaint: Patient states: She was just discharged from [facility] last Monday for Colitis. She woke up last night around 1:30 am with severe abdominal pain. Accompanying symptoms nausea and vomiting. 10/10 on a pain scale. Transition of care: patient was not received from another setting of care. Onset of symptoms was March 21, 2019. Risk Assessment: Do you want to hurt yourself or someone else? Patient reports no desire to harm self or others. Initial Sepsis Screen: Does the patient meet any 2 criteria? No. Patient's initial sepsis screen is negative. Does the patient have a suspected source of infection? Yes: Acute abdominal pain. Care prior to arrival: None. 14:14 Method Of Arrival: Wheelchair 14:14 Acuity: RENÉ 3 Triage Assessment: 14:18 General: Appears. 15:00 General: Behavior is calm, cooperative, appropriate for age. 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 - Social history:: Smoking status: Patient/guardian denies using tobacco. - Ebola Screening: : Patient negative for fever greater than or equal to 101.5 degrees Fahrenheit, and additional compatible Ebola Virus Disease symptoms Patient denies exposure to infectious person. Screenin:17 Abuse screen: Denies threats or abuse. Denies injuries from another. Nutritional screening: No deficits noted. Tuberculosis screening: No symptoms or risk factors identified. Fall Risk None identified. Assessment: 14:30 General: Appears in no apparent distress. uncomfortable. Pain: Complains of pain in abdomen Pain does not radiate. Pain currently is 10 out of 10 on a pain scale. Quality of pain is described as aching, crampy, Pain began 01:30 am. Neuro: Level of Consciousness is awake, alert, obeys commands, Oriented to person, place, time, situation, Appropriate for age. Cardiovascular: Heart tones S1 S2. Respiratory: Airway is patent Respiratory effort is even, unlabored, Respiratory pattern is regular, symmetrical. GI: Abdomen is flat, non-distended, Bowel sounds present X 4 quads. Abd is soft. : No signs and/or symptoms were reported regarding the genitourinary system. EENT: No signs and/or symptoms were reported regarding the EENT system. Derm: Skin is intact, is healthy with good turgor, Skin is pink, warm \T\ dry. normal. Musculoskeletal: Range of motion: intact in all extremities. 15:35 Reassessment: Patient appears in no apparent distress at this time. No changes from previously documented assessment. Patient and/or family updated on plan of care and expected duration. Pain level reassessed. Patient is alert, oriented x 3, equal unlabored respirations, skin warm/dry/pink. 16:40 Reassessment: Patient appears in no apparent distress at this time. No changes from previously documented assessment. Patient and/or family updated on plan of care and expected duration. Pain level reassessed. Patient is alert, oriented x 3, equal unlabored respirations, skin warm/dry/pink. Patient states feeling better. 18:10 Reassessment: Patient appears in no apparent distress at this time. No changes from previously documented assessment. Patient and/or family updated on plan of care and expected duration. Pain level reassessed. Patient is alert, oriented x 3, equal unlabored respirations, skin warm/dry/pink. Patient states feeling better. Patient states symptoms have improved. 19:25 Reassessment: Patient appears in no apparent distress at this time. No changes from previously documented assessment. Patient and/or family updated on plan of care and expected duration. Pain level reassessed. Patient is alert, oriented x 3, equal unlabored respirations, skin warm/dry/pink. 20:20 Reassessment: Reassessment: Report Given to Awa Puentes RN. 21:07 Reassessment: Patient appears in no apparent distress at this time. No changes from previously documented assessment. Patient and/or family updated on plan of care and expected duration. Pain level reassessed. Patient is alert, oriented x 3, equal unlabored respirations, skin warm/dry/pink. Report [facility] to [facility]. Vital Signs: 14:26 BP 148 / 83; Pulse 84; Resp 18; Temp 98.4; Pulse Ox 100% on R/A; wh 15:36 BP 135 / 83; Pulse 94; Resp 18; Pulse Ox 100% ; wh 16:30 BP 136 / 82; Pulse 96; Resp 16; Pulse Ox 96% on R/A; wh 18:00 BP 137 / 88; Pulse 98; Resp 18; Pulse Ox 96% on R/A; wh 19:30 BP 137 / 91; Pulse 101; Resp 18; Pulse Ox 96% on R/A; wh 20:30 BP 129 / 83; Pulse 108; Resp 18; Pulse Ox 96% on R/A; ED Course: 14:02 Patient arrived in ED. rg4 14:03 Jamie Conti MD is Private Physician. rg4 14:14 Chinmay Ortega is Primary Nurse. 14:17 Triage completed. 14:18 Patient has correct armband on for positive identification. Placed in gown. Bed in low wh position. Call light in reach. Side rails up X 1. Pulse ox on. NIBP on. 14:21 Aashish Jennings PA is PHCP. cp 14:21 Adelso Che MD is Attending Physician. cp 14:30 Patient notified of wait time. wh 14:47 Initial lab(s) drawn, by sd, sent to lab. Urine collected: clean catch specimen, clear. lt1 Inserted saline lock: 20 gauge in right antecubital area, using aseptic technique. 15:26 US Abdomen Limited: RUQ/epigastric area In Process Unspecified. EDMS 15:41 Ultrasound completed. hr 17:26 CT Abd/Pelvis - PO and IV Contrast In Process Unspecified. EDMS 21:10 No provider procedures requiring assistance completed. Patient transferred, IV remains in place. Administered Medications: 15:09 Drug: ProTONIX 40 mg Route: IVP; Site: right antecubital; 16:40 Follow up: Response: No adverse reaction 15:10 Drug: Zofran 4 mg Route: IVP; Site: right antecubital; 16:40 Follow up: Response: No adverse reaction 15:11 Drug: morphine 4 mg {Note: RASS 0.} Route: IVP; Site: right antecubital; 16:40 Follow up: Response: No adverse reaction; Pain is decreased; RASS: Alert and Calm (0) 15:17 Drug: Bentyl 20 mg Route: IM; Site: right gluteus; 16:40 Follow up: Response: No adverse reaction 16:39 Drug: morphine 4 mg Route: IVP; Site: right antecubital; 19:55 Follow up: Response: No adverse reaction; Nausea is decreased; RASS: Alert and Calm (0) 19:55 Drug: NS 0.9% 1000 ml Route: IV; Rate: 100 ml/hr; Site: right antecubital; 21:07 Follow up: Response: No adverse reaction; IV Status: Infusion continued upon transfer 19:56 Drug: morphine 4 mg {Note: RASS 0.} Route: IVP; Site: right antecubital; 21:08 Follow up: Response: No adverse reaction; Pain is unchanged, physician notified; RASS: Alert and Calm (0) 21:09 Drug: morphine 2 mg Route: IVP; Site: right antecubital; 21:09 Follow up: Response: No adverse reaction; RASS: Alert and Calm (0) Outcome: 19:33 ER care complete, transfer ordered by . eric 21:11 Transferred by ground EMS to [facility], Transfer form completed. X-rays sent w/ patient. 21:11 Condition: good 21:11 Instructed on the need for admit, Demonstrated understanding of instructions. 21:12 Patient left the ED. Signatures: Dispatcher [employer] EDMS Marla Wen Corey, PA PA cp Garcia, Rubi rg4 Jordan, Chinmay Ceja, Lisa lt1 Corrections: (The following items were deleted from the chart) 21:07 20:20 Reassessment: [facility] 21:12 21:11 Transferred by ground EMS to [facility], wh wh
--- NOTE | 2019-03-21 19:35 | EDPHYS ---
Physician Documentation [facility] Name: Stephanie Doshi Age: 54 yrs Sex: Female : 1965 Arrival Date: 03/21/2019 Time: 14:02 Bed 30 Private MD: Jamie Conti ED Physician Adelso Che HPI: 03/21 14:40 This 54 yrs old Female presents to ER via Wheelchair with complaints of cp Abdominal Pain, Flank Pain, Nausea/Vomiting. 14:40 The patient presents with abdominal pain that is diffuse. cp 14:40 Onset: The symptoms/episode began/occurred gradually, and became worse last night. cp Associated signs and symptoms: Pertinent positives: nausea, vomiting, loose, dark stools, Pertinent negatives: blood in stools, chest pain, dysuria, fever. The symptoms are described as constant. Severity of pain: in the emergency department the pain is a 10 / 10. The patient has been recently seen at the [facility] Emergency Department, for similar complaints CT scan was performed, currently taking prescribed Levaquin, metronidazole and oral prednisone, hospitalized from 03-12-2019 thru 03-16-2019. 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 - Social history:: Smoking status: Patient/guardian denies using tobacco. - Ebola Screening: : Patient negative for fever greater than or equal to 101.5 degrees Fahrenheit, and additional compatible Ebola Virus Disease symptoms Patient denies exposure to infectious person. ROS: 14:45 Constitutional: Negative for body aches, chills, fever, poor PO intake. cp 14:45 Eyes: Negative for injury, pain, redness, and discharge. cp 14:45 Cardiovascular: Negative for chest pain, edema, palpitations. 14:45 Respiratory: Negative for cough, shortness of breath, wheezing. 14:45 Abdomen/GI: Positive for abdominal pain, nausea and vomiting, dark, loose stools, Negative for constipation. 14:45 : Negative for urinary symptoms. 14:45 Neuro: Negative for altered mental status, dizziness, headache, weakness. 14:45 All other systems are negative. Exam: 14:55 Constitutional: The patient appears in no acute distress, alert, awake, cp non-diaphoretic, non-toxic, well developed, well nourished, uncomfortable. 14:55 Head/Face: Normocephalic, atraumatic. cp 14:55 Eyes: Periorbital structures: appear normal, Conjunctiva: normal, no exudate, no injection, Sclera: no appreciated abnormality, Lids and lashes: appear normal, bilaterally. 14:55 ENT: External ear(s): are unremarkable, Nose: is normal, Mouth: Lips: moist, Oral mucosa: pink and intact, moist, Posterior pharynx: is normal, airway is patent, no erythema, no exudate. 14:55 Chest/axilla: Inspection: normal, Palpation: is normal, no crepitus, no tenderness. 14:55 Cardiovascular: Rate: normal, Rhythm: regular, Edema: is not appreciated, JVD: is not appreciated. 14:55 Respiratory: the patient does not display signs of respiratory distress, Respirations: normal, no use of accessory muscles, no retractions, no splinting, no tachypnea, labored breathing, is not present, Breath sounds: are clear throughout, no decreased breath sounds, no stridor, no wheezing. 14:55 Abdomen/GI: Inspection: distension, that is moderate, in the abdomen diffusely, Bowel sounds: active, all quadrants, Palpation: soft, in all quadrants, severe abdominal tenderness, in the right upper quadrant and left upper quadrant, rebound tenderness, is not appreciated, voluntary guarding, is elicited in the right upper quadrant and left upper quadrant. 14:55 Back: pain, is absent, ROM is normal. 14:55 Skin: no rash present. 14:55 Neuro: Orientation: to person, place \T\ time. Mentation: is normal, Motor: moves all fours, strength is normal, Sensation: is normal. Vital Signs: 14:26 BP 148 / 83; Pulse 84; Resp 18; Temp 98.4; Pulse Ox 100% on R/A; wh 15:36 BP 135 / 83; Pulse 94; Resp 18; Pulse Ox 100% ; wh 16:30 BP 136 / 82; Pulse 96; Resp 16; Pulse Ox 96% on R/A; wh 18:00 BP 137 / 88; Pulse 98; Resp 18; Pulse Ox 96% on R/A; wh 19:30 BP 137 / 91; Pulse 101; Resp 18; Pulse Ox 96% on R/A; wh 20:30 BP 129 / 83; Pulse 108; Resp 18; Pulse Ox 96% on R/A; MDM: 14:42 Patient medically screened. cp 18:00 Data reviewed: vital signs, nurses notes, lab test result(s), radiologic studies, CT cp scan, ultrasound. 18:00 Response to treatment: the patient's symptoms have mildly improved after treatment. cp 19:01 Physician consultation: DR Cisneros, GI physician \T\[facility], will cp consult on patient. 03/21 14:30 Order name: Basic Metabolic Panel; Complete Time: 16:00 03/21 17:56 Interpretation: Normal except: GFR 84. 03/21 14:30 Order name: CBC with Diff; Complete Time: 15:06 03/21 16:00 Interpretation: Normal except: WBC 14.2; HGB 10.5; HCT 32.6; MCV 78.3; MCH 25.2; PLT cp 710; RDW 16.8; NEUT A 10.1. 03/21 14:30 Order name: Creatinine for Radiology; Complete Time: 16:00 03/21 14:30 Order name: Hepatic Function; Complete Time: 16:00 03/21 18:26 Interpretation: Normal except: AST 10; ALB 3.2; GLOB 4.2; A/G 0.8. 03/21 14:30 Order name: Lipase; Complete Time: 16:00 03/21 14:30 Order name: Urine Microscopic Only; Complete Time: 16:34 03/21 14:44 Order name: US Abdomen Limited: RUQ/epigastric area; Complete Time: 16:00 03/21 14:44 Order name: Magnesium; Complete Time: 16:00 03/21 14:44 Order name: PT-INR; Complete Time: 16:00 cp 03/21 14:47 Order name: Urine Dipstick--Ancillary (enter results); Complete Time: 17:55 bd 03/21 14:47 Order name: Urine --Ancillary (enter results); Complete Time: 17:55 bd 03/21 15:06 Order name: CT Abd/Pelvis - PO and IV Contrast; Complete Time: 18:48 cp 03/21 16:36 Order name: Urine Culture EDVT 03/21 14:30 Order name: IV Saline Lock; Complete Time: 14:32 cp 03/21 14:30 Order name: Labs collected and sent; Complete Time: 14:32 cp 03/21 14:30 Order name: Urine Dipstick-Ancillary (obtain specimen); Complete Time: 14:40 cp 03/21 14:30 Order name: Urine Test (obtain specimen); Complete Time: 14:40 cp Administered Medications: 15:09 Drug: ProTONIX 40 mg Route: IVP; Site: right antecubital; 16:40 Follow up: Response: No adverse reaction 15:10 Drug: Zofran 4 mg Route: IVP; Site: right antecubital; 16:40 Follow up: Response: No adverse reaction 15:11 Drug: morphine 4 mg {Note: RASS 0.} Route: IVP; Site: right antecubital; 16:40 Follow up: Response: No adverse reaction; Pain is decreased; RASS: Alert and Calm (0) 15:17 Drug: Bentyl 20 mg Route: IM; Site: right gluteus; 16:40 Follow up: Response: No adverse reaction 16:39 Drug: morphine 4 mg Route: IVP; Site: right antecubital; 19:55 Follow up: Response: No adverse reaction; Nausea is decreased; RASS: Alert and Calm (0) 19:55 Drug: NS 0.9% 1000 ml Route: IV; Rate: 100 ml/hr; Site: right antecubital; 21:07 Follow up: Response: No adverse reaction; IV Status: Infusion continued upon transfer 19:56 Drug: morphine 4 mg {Note: RASS 0.} Route: IVP; Site: right antecubital; 21:08 Follow up: Response: No adverse reaction; Pain is unchanged, physician notified; RASS: Alert and Calm (0) 21:09 Drug: morphine 2 mg Route: IVP; Site: right antecubital; 21:09 Follow up: Response: No adverse reaction; RASS: Alert and Calm (0) Disposition: 03/21/19 19:[address] [facility]. Diagnosis is Infectious gastroenteritis and colitis, unspecified. - Reason for transfer: Higher level of care. - Accepting physician is DR Salas. - Condition is Stable. - Problem is an ongoing problem. - Symptoms have improved. Addendum: 03/23/2019 07:01 Co-signature as Attending Physician, Adelso Che MD. r n Signatures: Dispatcher [employer] EDMS Adelso Che MD MD rn Aashish Jennings PA PA Chinmay Irene Corrections: (The following items were deleted from the chart) 03/21 16:01 15:06 Normal except: WBC 14.2; HGB 10.5; HCT 32.6; MCV 78.3; MCH 25.2; PLT 710; RDW cp 16.8. cp 21:12 19:33 03/21/2019 19:[address] [facility]. Diagnosis is Infectious gastroenteritis and colitis, unspecified. Reason for transfer: Higher level of care. Accepting physician is DR Salas. Condition is Stable. Problem is an ongoing problem. Symptoms have improved. cp
[2019-03-21] MEDS ORDERED: NA CHLORIDE 0.9% 1,000 ML ONE (19:42)
[2019-03-21] MEDS ORDERED: MORPHINE 2 MG/ML SYR ONE (21:02)
[2019-03-21 22:10] VITALS: TEMP 98.4
[2019-03-21 22:11] VITALS: O2SAT 96
[2019-03-21 22:15] VITALS: BP 129/83
== END 2019-03-21 21:12 | disposition short-term general hospital (02) ==
LOC: ER 14:00
DX: A09 Infectious gastroenteritis and colitis, unspecified (principal); Z88.5 Allergy status to narcotic agent
CPT/HCPCS: 96361; 87088; 85025; 87086; 80048; 36415; 83735; 81025; 85610; 80076; 83690; 74177; 76705; 96375; 96372; 96374; 99285; Q9967; J0500; C9113; J2270; J7030; J2405; 81003; 81015

== ENCOUNTER 2023-05-06 15:46 | Emergency (ER) | payer BC ==
--- OUTSIDE RECORDS SUMMARY | 2023-05-06 16:11 | XMS REPORT | Continuity of Care Document ---
:1965 Author Organization [facility] t Address [address] [place] [address] [address] [place] [address] Care Team Providers Name Role Phone Pcp, Patient Does Not Have A Primary Care Physician +[id number] Nurse, [facility] Attending Clinician Unavailable Unknown, Attending Attending Clinician Unavailable UNKNOWN, ATTENDING Attending Clinician Unavailable Carmelita ALBRIGHT, Zhanna Benitez Attending Clinician Joy Abbasi MA Attending Clinician Unavailable Joy Venegas MD Attending Clinician Boris Bradley MD Attending Clinician Tyrone Mora Attending Clinician Stephanie Dominique MD Attending Clinician Ariana Johnson MD Attending Clinician [phone] Ogletree_C Attending Clinician Unavailable KAY BORDEN Attending Clinician Unavailable JEN NAJERA Attending Clinician Unavailable MD TARA BRIDGES Attending Clinician Unavailable Shiela Attending Clinician Unavailable Calderon Swann Attending Clinician [phone] MADALYN JAIN Attending Clinician Unavailable TYRONE MORA Admitting Clinician Unavailable Ogletree_Harrison Admitting Clinician Unavailable TARA BRIDGES Admitting Clinician Unavailable MD STEVE FERRER Admitting Clinician Unavailable SUSAN GARNICA Admitting Clinician Unavailable Shiela Admitting Clinician Unavailable JOY VENEGAS Admitting Clinician Unavailable ZHANNA THORNE Admitting Clinician Unavailable MADALYN JAIN Admitting Clinician Unavailable Payers Payer Name Policy Type Policy Number Effective Date Expiration Date [place] quick [place] [id number] 2016 00:[place]:00 [place] [id number] 2016 00:00:00 [place] Problems Condition Condition Condition Status Onset Resolution Last Treating Co mments Source Name Details Category Date Date Treatment Clinician Date Abdominal Abdominal Disease Active 2021-07 Met [facility] wall wall 1-26 st abscess abscess 00:00: Hospita 00 l Cellulitis Cellulitis Disease Active M ethodi , , 9-03 st abdominal abdominal 00:00: Hosp [facility] wall wall 00 l Abdominal Abdominal Disease Active Met hodi fluid fluid 8-17 st collection collection 00:00: Ho spita 00 l Cholecysti Cholecysti Disease Active M ethodi tis tis 8-10 st 00:00: Hospita 00 l Crohn's Crohn's Disease Active Methodi disease of disease of 6-27 st colon with colon with 00:00: Ho spita complicati complicati 00 l on on Encounter Encounter Disease Active Overview: Methodi for for 6-[address] surgical surgical 00:00: g of this Hos tayo aftercare aftercare 00 note l following following might be surgery of surgery of different digestive digestive from the system system original. Added automatic ally from request for surgery [id number] Ulcerative Ulcerative Disease Active Overview : Methodi colitis colitis 4-[address] 00:00: g of this Hospita 00 note l might be different from the original. Added automatic ally from request for surgery [id number] Ulcerative Ulcerative Disease Recurre [facility] colitis [facility] with with 00:00: Medical complicati complicati 00 Ce nter on on Allergies, Adverse Reactions, Alerts Allergy Allergy Status Severity Reaction(s) Onset Inactive Treating Comm ents Source Name Type Date Date Clinician Levoflox Propensi Active Hives With Method i acin ty to 03-[address] adverse 00:00: Hospita reaction 00 l s to drug HYDROCOD DRUG Active ITCHING Univers ONE INGREDI 01-07 ity of 00:00: [place] 00 [facility] Hydrocod Propensi Active Itching Unive rs one ty to 01-07 ity of adverse 00:00: [place] reaction 00 Medical s Branch Hydrocod Propensi Active Itching Metho di one ty to 01-07 st adverse 00:00: Hospita reaction 00 l s to drug Family History Family Member Diagnosis Comments Start Date Stop Date Source Natural father Hypertension [facility] Natural [facility] Natural mother Hypert[facility] Social History Social Habit Start Date Stop Date Quantity Comments Source History of tobacco Cigarette Smoker [facility] Sexual orientation [facility] History of Social 2022-09-25 2022-09-[address] function 00:00:00 00:00:00 Hospital Cigarettes smoked 2022-03-02 2022-03-[address] current (pack per 00:00:00 00:00:00 Hospita l day) - Reported Cigarette 2022-03-02 2022-03-02 [facility] pack-[facility] 00:00:00 00:00:00 Hospital Tobacco use and 2022-03-02 2022-03-02 Smokeless [facility] exposure 00:00:00 00:00:00 tobacco non-user Hospital Alcohol Comment 2022-02-11 2022-02-11 occasional- Methodis t 00:00:00 00:00:00 [facility] Hospital Alcohol intake 2019-03-22 2019-03-22 Current drinker [facility] 00:[facility] 00:[facility]:00 of alcohol [facility] History [facility] 2019-03-22 2019-03-[address] [facility] Alcohol Frequency 00:00:00 00:00:00 Medical Center History [facility] 2019-03-22 2019-03-[address] [facility] Alcohol Std Drinks 00:00:00 00:00:00 Medica l Center History [facility] 2019-03-22 2019-03-[address] [facility] Alcohol Binge 00:00:00 00:00:[address] Sex [birth year] [facility] 00:00:00 00:00:00 Medical Center Smoking Status Start Date Stop Date Source Ex-smoker 2023-05-06 00:00:00 2023-05-06 [place] [facility] [place] 00:00:00 Medical Branch Occasional tobacco 2019-03-22 00:00:00 [facility] Medications Ordered Filled Start Stop Current Ordering Indication Dosage Frequency Signature Comments Components Source Medication Medication Date Date Medication? Clinician (SIG) Name Name Deirdre Neal Yes INJECT 1 Met hodi mg/mL 3-20 ML ([address] injection 00:00: TOTAL) Hospit a 00 UNDER THE l SKIN EVERY 2 MONTHS traMADoL 2021-07- [place] [id number] 50mg Q6H Take 1 Metho di (ULTRAM) 50 2-22 12-22 tablet (50 s t mg tablet 15:20: 00:00 mg total) Ho spita 12 :00 by mouth l every 6 (six) hours as needed for moderate pain .acute pain. ferrous 2021-07 Yes 325mg QD Take 1 Methodi sulfate 2-[address] (Iron, 14:59: (325 mg Hospita ferrous 47 total) by l sulfate,) mouth 325 (65 FE) daily with MG tablet breakfast. acetaminoph 2021-07 Yes 500mg Q6H Take 1 Met hodi en 2-[address] (TYLENOL) 14:59: (500 mg Hospi ta 500 MG 47 total) by l tablet mouth every 6 (six) hours as needed for mild pain. dicyclomine 2021-07 Yes 20mg Q.25D Take 20 mg Methodi (BENTYL) 20 2-[address] mg tablet 14:58: (four) Hospit a 33 times a l day as needed. acetaminoph 2021-07- [place] [id number] 1{tbl} Q6H Take 1 Methodi en-codeine 08-[address] (TYLENOL 12:38: 00:00 mouth Hospita WITH 02 :00 every 6 l CODEINE #3) (six) 300-30 mg hours as per tablet needed for severe pain .acute pain. methocarbam 2021-07 No 500mg Q.[id number] Take 1 Methodi oL 08-[id number] (ROBAXIN) 12:38: 00:00 3D (500 mg Hosp [facility] 500 MG 02 :00 total) by l tablet mouth 3 (three) times a day. ondansetron 2021-07 No 4mg Q8H Take 1 Met hodi ODT 08-18 tablet (4 st (ZOFRAN-ODT 12:38: 00:00 mg total) Hospita ) 4 MG 02 :00 by mouth l disintegrat every 8 ing tablet (eight) hours as needed for nausea or vomiting. pantoprazol 2021-07- No 40mg QD Take 1 Met hodi e 08-18 tablet (40 st (PROTONIX) 00:00: 05:59 mg total) H ospita 40 MG EC 00 :00 by mouth l tablet daily for 30 days. potassium 2021-07 Yes 8meq QD Take 1 Method i chloride 08-17 tablet (8 st (KLOR-CON) 00:00: mEq total) H ospita 8 MEQ CR 00 by mouth l tablet daily. meropenem 1 2021-07- No 1g Q8H Infuse 1 g Methodi g in sodium 08-[address] chloride 00:00: 05:59 venous Hospit a 0.9 % MBP 00 :00 catheter l 50 mL IVPB every 8 (eight) hours for 30 days. ertapenem 1 2021- No 1g Q24H Infuse 1 g Methodi g in sodium 03-[address] chloride 00:00: 00:00 venous Hospit a 0.9 % MBP 00 :00 catheter l 50 mL IVPB daily. TPN FOR 2021- No See most Metho di DISCHARGE 03-[address] 00:00: 00:00 order. Hospita 00 :00 l sertraline Yes 50mg QD Take 50 mg M ethodi (ZOLOFT) 50 5-[address] MG tablet 00:00: daily. Hospit a 00 l gabapentin 2022- No 300mg Q.[id number] Take 1 Methodi (NEURONTIN) 4-14 04-[id number] 300 mg 00:00: 04:59 3D (300 mg Hospita capsule 00 :00 total) by l mouth 3 (three) times a day. predniSONE Yes 40mg QD Take 4 [facility] (DELTASONE) 9-10 tablets [facility] 10 MG 00:00: (40 mg Medical tablet total) by Center mouth daily Decreased 5 mg every 7 days, till discontinu e. sertraline Yes 25mg QD Take [address] (ZOLOFT) 25 03-25 by mouth Luke s MG tablet 18:25: daily. Medica l 06 [place] azaTHIOprin Yes 50mg QD Take [address] [facility] (IMURAN) 03-25 by mouth [facility] 50 mg 18:25: daily. Medical tablet 06 [place] omeprazole Yes heartburn 20mg QD Take [address] (PRILOSEC) 03-25 by mouth [facility] 20 MG 18:25: daily. Medical capsule 06 [place] foLIC acid Yes 1mg Take 1 Tab U nivers (FOLATE) 1 01-14 by mouth ity o f mg tablet 00:00: daily. [address] HYDROcodone Yes 1{tbl} Take 1 Tab Univers -acetaminop 01-14 by mouth ity of [place] (NORCO 00:00: every 4 [place] 5-325 mg 00 (four) Medica l tablet hours as Branch needed for Pain (scale 1-3). multivitami Yes 1{tbl} Take 1 Tab Univers n tablet 01-14 by mouth ity of 00:00: daily. [address] omeprazole Yes 20mg Take 1 Cap U nivers (PRILOSEC) 01-14 by mouth ity o f 20 mg 00:00: daily. [place] capsule [address] [place] [address] predniSONE Yes 50mg Take 1 Tab U nivers (DELTASONE) 01-14 by mouth ity of 50 mg 00:00: daily. [address] omeprazole 2021- No 20mg QD Take 20 mg Methodi (PriLOSEC) 01-[address] 20 MG 00:00: 00:00 daily. Hospita capsule 00 :00 l Immunizations Ordered Immunization Filled Immunization Date Status Commen ts Source Name Name FADIA COVID-19 MRNA Unknown Completed Met [facility] COVID-19 MRNA Unknown Completed Met [facility] MODERNA COVID-19 MRNA Unknown Completed Met [facility] Vital Signs Vital Name Observation Time Observation Value Comments Source Systolic blood 2023-05-06 20:29:00 108 mm[Hg] Univer sity [facility] Diastolic blood 2023-05-06 20:29:00 74 mm[Hg] Unive rsity [facility] Heart rate 2023-05-06 20:29:00 80 /min [facility] Body temperature 2023-05-06 20:29:00 36.83 [facility] Respiratory rate 2023-05-06 20:29:00 14 /min [facility] Body height 2023-05-06 20:29:00 157.5 cm [facility] Body weight 2023-05-06 20:29:00 64.411 kg [facility] BMI 2023-05-06 20:29:00 25.97 kg/m2 [facility] Oxygen saturation in 2023-05-06 20:29:00 99 /min [facility] Arterial blood by [facility] Pulse oximetry [place] Body height 2022-07-27 16:39:00 157.5 cm [facility] Body weight 2022-07-27 16:39:00 66.225 kg [facility] BMI 2022-07-27 16:39:00 26.70 kg/m2 [facility] Systolic blood 2022-07-07 21:01:00 110 mm[Hg] [facility] Diastolic blood 2022-07-07 21:01:00 74 mm[Hg] [facility] pressure Heart rate 2022-07-07 21:01:00 80 /min [facility] Respiratory rate 2022-07-07 17:46:00 16 /min [facility] [place] Oxygen saturation in 2022-07-07 17:46:00 100 /min [facility] Arterial blood by Pulse oximetry Body temperature 2022-06-16 13:22:[address] [facility] [place] Procedures Procedure Date / Time Performing Clinician Source Performed CT ABDOMEN PELVIS W WO 2022-06-30 19:40:33 Joy Venegas [facility] CONTRAST CBC WITH PLATELET AND 2022-06-16 16:05:00 [facility] DIFFERENTIAL BASIC METABOLIC PANEL 2022-06-16 16:05:00 [facility] ESTIMATED GFR 2022-06-16 16:05:00 [facility] MANUAL DIFFERENTIAL 2022-06-16 16:05:[address] [facility] [address] ABDOMEN PELVIS W 2022-06-16 00:40:50 [facility] CONTRAST VENIPUNC NEED PHYS 2022-06-15 16:46:31 [facility] RX ESTIMATED GFR 2022-06-15 11:08:00 [facility] FECAL CALPROTECTIN 2022-06-15 08:00:00 Dameon Calvillo [facility] VANCOMYCIN LEVEL, TROUGH 2022-06-14 17:07:00 [facility] C-REACTIVE PROTEIN 2022-06-14 11:04:00 Dameon Calvillo [facility] SEDIMENTATION RATE 2022-06-14 11:04:00 Dameon Calvillo [facility] BASIC METABOLIC PANEL 2022-06-14 11:04:00 [facility] CBC HEMOGRAM 2022-06-14 11:04:00 [facility] spital MAGNESIUM LEVEL 2022-06-14 11:04:00 [facility] spital FERRITIN LEVEL 2022-06-14 11:04:00 [facility] spital TOTAL IRON BINDING 2022-06-14 11:04:00 [facility] CAPACITY VITAMIN B12 LEVEL 2022-06-14 11:04:00 [facility] ESTIMATED GFR 2022-06-14 11:04:00 [facility] POTASSIUM LEVEL 2022-06-14 02:55:00 [facility] spital FECAL LACTOFERRIN 2022-06-13 19:23:00 Dameon Calvillo [facility] AEROBIC CULTURE 2022-06-13 14:32:00 [facility] spital GRAM STAIN 2022-06-13 14:32:00 [facility]NA[facility] 2022-06-13 14:32:00 Brent, [facility] CBC HEMOGRAM 2022-06-13 12:03:00 Stephanie Dominique spital COMPREHENSIVE METABOLIC 2022-06-13 12:03:[address] [facility] [place] PANEL MAGNESIUM LEVEL 2022-06-13 12:03:00 Stephanie Dominique spital PROTHROMBIN TIME WITH 2022-06-13 12:03:00 [facility] INR TYPE AND SCREEN 2022-06-13 12:03:00 [facility] ESTIMATED GFR 2022-06-13 12:03:00 [facility] CBC WITH PLATELET AND 2022-06-12 11:26:00 Tyrone Mora [facility] DIFFERENTIAL COMPREHENSIVE METABOLIC 2022-06-12 11:26:00 [facility] PANEL ESTIMATED GFR 2022-06-12 11:26:[address] [facility] LACTIC ACID LEVEL, 2022-06-12 03:25:00 Ahmet Hager [facility] SEPSIS - NOW AND REPEAT 2X EVERY 3 HOURS LACTIC ACID LEVEL, 2022-06-11 23:55:00 Ahmet Hager [facility] SEPSIS - NOW AND REPEAT 2X EVERY 3 HOURS COVID-19 QUALITATIVE 2022-06-11 22:44:00 [facility] ABDOMEN PELVIS W 2022-06-11 20:00:28 Ahmet Hager [facility] CONTRAST BLOOD CULTURE, AEROBIC & 2022-06-11 17:51:00 Ahmet Hager [facility] ANAEROBIC LACTIC ACID LEVEL, 2022-06-11 17:51:00 [facility] - NOW AND REPEAT 2X EVERY 3 HOURS COMPREHENSIVE METABOLIC 2022-06-11 17:51:00 Ahmet Hager [facility] PANEL CBC WITH PLATELET AND 2022-06-11 17:51:00 Ahmet Hager [facility] DIFFERENTIAL ESTIMATED GFR 2022-06-11 17:51:00 Ahmet Hager [facility] BLOOD CULTURE, AEROBIC & 2022-06-11 17:30:00 [facility] ANAEROBIC Plan of Care Planned Activity Planned Date Details Comments Source Future Scheduled 2023-05-05 Screening for [facility] Test 11:30:34 malignant neoplasm of colon (procedure) [code = 196532280] Future Scheduled 2023-05-05 Screening for [facility] Test 11:30:34 malignant neoplasm of colon (procedure) [code = 306987303] Future Scheduled 2023-05-05 Screening for [facility] Test 11:30:34 malignant neoplasm of colon (procedure) [code = 189689158] Future Scheduled 2023-05-05 Hepatitis C [facility] ospital Test 11:30:34 screening (procedure) [code = 208680729] Future Scheduled 2023-05-05 Screening for [facility] Test 11:30:34 malignant neoplasm of cervix (procedure) [code = 343435297] Future Scheduled 2023-05-05 BREAST CANCER [facility] Test 11:30:34 SCREENING [code = BREAST CANCER SCREENING] Future Scheduled 2023-05-05 Screening for [facility] Test 11:30:34 malignant neoplasm of colon (procedure) [code = 371563496] Future Scheduled 2023-05-05 Screening for [facility] Test 11:30:34 malignant neoplasm of colon (procedure) [code = 968994891] Future Scheduled 2023-05-05 SHINGLES VACCINES [facility] Test 11:30:34 (1 of 2) [code = SHINGLES VACCINES (1 of 2)] Future Scheduled 2023-05-05 COVID-19 VACCINE (5 [facility] Test 11:30:34 - season) [code = COVID-19 VACCINE (5 - season)] Future Scheduled 2023-05-05 INFLUENZA VACCINE [facility] Test 11:30:34 (#1) [code = INFLUENZA VACCINE (#1)] Future Scheduled 2023-05-05 RSV VACCINES > 60 [facility] Test 11:30:34 YR (1 - 1-dose 60+ series) [code = RSV VACCINES > 60 YR (1 - 1-dose 60+ series)] Encounters Start End Encounter Admission Attending Care Care Encounter Source Date/Time Date/Time Type Type Clinicians Facility Department ID 2023-05-06 2023-05-06 Nurse Nurse, [facility] [id number] Univers 15:15:00 15:35:00 Visit Unknown, Attending [facility] 350.1.13.10 ity [facility] 4.2.7.2.686 Quinn as YOUSIF?BLEA [id number] [address] MEDICAL OFFICE BUILDING 2023-05-06 2023-05-06 Outpatient R UNKNOWN, [facility] [id number] Univers 15:15:00 15:15:00 ATTENDING ity [facility] 2023-05-05 2023-05-05 Outpatient [facility] [id number] [place] 00:00:00 00:00:[address] 2022-10-01 2022-10-01 Refill Carmelita, 1.2.840.1 [id number] Methodi 00:00:00 00:00:[address] Emmanuel 3.430.2.7 Hospit a .3.553560 l .8 2022-08-08 2022-08-08 Telephone Joy Abbasi 1.2.840.1 [id number] Methodi 00:00:00 00:00:[address] 3.430.2.7 Hospit a .3.580890 l .8 2022-07-27 2022-07-27 Office Theo, 1.2.840.1 [id number] Methodi 10:30:00 11:02:25 Visit Joy Ash 06606.1.1 674 s t 3.430.2.7 Hospit a .3.729485 l .8 2022-07-27 2022-07-27 Travel 1.2.840.1 1.2.847.265 [id number] Methodi 00:00:00 00:00:[address] 3.430.2.7 0.2.7.3.698 Ho spita .3.592031 084.8 l .8 2022-07-27 2022-07-27 Outpatient [facility] [id number] [place] 00:00:00 00:00:[address] JOY [address] 2022-07-08 2022-07-08 Telephone Joy Abbasi 1.2.840.1 [id number] Methodi 00:00:00 00:00:[address] 3.430.2.7 Hospit a .3.348755 l .8 2022-07-07 2022-07-07 Office [facility], 1.2.840.1 [id number] Methodi 14:45:00 15:26:23 Visit Zhanna 17076.1.[address] Emmanuel 3.430.2.7 Hospit a .3.227811 l .8 2022-07-07 2022-07-07 Office radha, 1.2.840.1 [id number] Methodi 11:30:00 12:58:24 Visit Joy Ash 93434.1.1 357 s t 3.430.2.7 Hospit a .3.721850 l .8 2022-07-07 2022-07-07 Travel 1.2.840.1 1.2.243.638 [id number] Methodi 00:00:00 00:00:[address] 3.430.2.7 0.2.7.3.698 Ho spita .3.496745 084.8 l .8 2022-07-07 2022-07-07 Outpatient [facility] [id number] [place] 00:00:00 00:00:[address] 2022-07-07 2022-07-07 Outpatient [facility] [id number] [place] 00:00:00 00:00:[address] 2022-06-30 2022-06-30 [facility] 1.2.840.1 [id number] Methodi 12:56:45 23:59:00 Encounter Joy Ash 23708.1.[address] 3.430.2.7 Hospit a .3.682875 l .8 2022-06-30 2022-06-30 Travel 1.2.840.1 1.2.399.878 [id number] Methodi 00:00:00 00:00:[address] 3.430.2.7 0.2.7.3.698 Ho spita .3.903345 084.8 l .8 2022-06-30 2022-06-30 Outpatient [facility] [id number] [place] 00:00:00 00:00:[address] JOY [address] 2022-06-11 2022-06-16 [facility] Boris Bradley 1.2.840.1 [id number] Methodi 11:23:00 12:38:00 Encounter Tyrone Mora 83478.1.1 280 [facility] 3.430.2.7 Hospita [facility] Lauren .3.150674 l .8 2022-06-11 2022-06-16 Inpatient [facility] [id number] [place] 00:00:00 00:00:00 [facility] [address] 2022-06-11 2022-06-11 Travel 1.2.840.1 1.2.958.795 [id number] Methodi 00:00:00 00:00:[address] 3.430.2.7 0.2.7.3.698 Ho spita .3.040629 084.8 l .8 2022-05-17 2022-05-17 Travel 1.2.840.1 1.2.087.793 [id number] [id number] Methodi 00:00:00 00:00:[address] 3.430.2.7 0.2.7.3.698 Ho spita .3.195523 084.8 l .8 2022-05-11 2022-05-11 Office Theo, 1.2.840.1 [id number] Methodi 10:00:00 12:20:00 Visit Joy Ash 50971.1.1 563 s t 3.430.2.7 Hospit a .3.352818 l .8 2022-05-11 2022-05-11 Orders Joy Abbasi 1.2.840.1 [id number] Methodi 00:00:00 00:00:[address] 3.430.2.7 Hospit a .3.677935 l .8 2022-05-11 2022-05-11 Travel 1.2.840.1 1.2.477.162 [id number] Methodi 00:00:00 00:00:[address] 3.430.2.7 0.2.7.3.698 Ho spita .3.406224 084.8 l .8 2022-05-11 2022-05-11 Outpatient [facility] [id number] [place] 00:00:00 00:00:00 JOY 563 Method i 2022-05-09 2022-05-09 Outpatient [facility] [id number] [place] 00:00:00 00:00:00 [id number] [facility] 2022-04-27 2022-04-27 Outpatient YADARIN, [facility] [id number] [place] 00:00:00 00:00:[address] KAY [address] 2022-04-26 2022-04-26 [facility] [id number] [place] 00:00:00 00:00:00 JOY 789 Method i 2022-04-25 2022-04-25 Emergency [place], [facility] [id number] [place] 00:00:00 00:00:00 BORIS [address] 2022-04-14 2022-04-14 Outpatient THEO, [facility] [id number] [place] 00:00:00 00:00:00 JOY [address] 2022-04-04 2022-04-04 Outpatient Ogletree_C [facility] [id number] 70-202 [place] 00:00:00 00:00:00 [id number] [facility] 2022-03-30 2022-03-30 Outpatient THEO [facility] [id number] [place] 00:00:00 00:00:00 JOY [address] 2022-03-19 2022-03-22 Outpatient JEN NAJERA [facility] [id number] [place] 00:00:00 00:00:[address] 2022-03-02 2022-03-15 Inpatient YULIANA [facility] [id number] [place] 00:00:00 00:00:00 TARA [address] 2022-03-10 2022-03-10 Outpatient Armstrong_B [facility] U [id number] [place] 00:00:00 00:00:00 11986 [facility] 2022-03-02 2022-03-02 Outpatient THEO [facility] [id number] [place] 00:00:00 00:00:00 JOY [address] 2022-02-28 2022-02-28 Outpatient Ogletree_C [facility] 4770 70-202 [place] 00:00:00 00:00:00 74103 [facility] 2022-02-27 2022-02-27 Outpatient Armstrong_B [facility] U 478 [id number] [place] 00:00:00 00:00:00 89689 [facility] 2022-02-11 2022-02-24 Inpatient THEO [facility] [id number] [place] 00:00:00 00:00:00 JOY [address] 2022-02-11 2022-02-11 Outpatient Ogletree_C [facility] U 4770 70-202 [place] 00:00:00 00:00:00 46582 [facility] 2022-02-11 2022-02-11 Calderon [facility] [place] - [id number] Ashley santos 00:00:00 00:00:00 Meche Cintron MD: [id number] Urology [facility] [address], [place] [address] , Ph. 2022-02-11 2022-02-11 Outpatient Shree Domitila [facility] 0a0c 00:00:00 00:00:00 Calderon [id number] Elias [id number] 2022-02-09 2022-02-09 Outpatient CHACORTAMOHAN, [facility] [id number] [place] 00:00:00 00:00:00 JOY 837 Method i 2022-02-07 2022-02-07 Outpatient [place]_C [facility] [id number] [place] 12:38:00 12:38:00 [id number] [facility] 2022-02-01 2022-02-01 Outpatient [place]_C [facility] 4770 [id number] [place] 03:01:00 03:01:00 [id number] [facility] 2022-01-10 2022-01-10 Outpatient CHACORTARADHAT, [facility] [id number] [place] 00:00:00 00:00:00 JOY [address] 2021-12-31 2021-12-31 Outpatient THORNE, [facility] [id number] [place] 00:00:00 00:00:00 SVETANG [address] 2021-12-20 2021-12-20 Outpatient THORNE, [facility] [id number] [place] 00:00:00 00:00:00 SVETANG 801 Method i 2021-10-28 2021-10-28 Outpatient THORNE, [facility] [id number] [place] 00:00:00 00:00:00 SVETANG 464 Method i Results Test Description Test Time Test Comments Results Result Comments Source Fecal calprotectin 2022-06-15 18:40:00 Test Item Value Reference Range Interpretation Comme nts Fecal calprotectin (test code 327.98 See_Comment H [Automated message] The system = 35548-3) which generated this result transmitted ref erence range: <15.6-120 mg/kg . The reference range was not u sed to interpret this result as normal/abnormal. Lab Interpretation (test code Abnormal = 48414-2) [facility] [id number] 17:52:00 Test Item Value Reference Interpretation Comments Range Anaerobic culture Bacteroides A Specimen isolate ([facility]The [facility] code = 33278-4) performance [facility] Site: this assay on this Abdominal wall isolatewere validated by the Microbiology Laboratory at [facility]. This source has not been approved by the U.S. Food and Drug Administration. The results are not intended to be used as the sole means for clinical diagnosis or patient management. The Microbiology Laboratory is authorized under the clinical Laboratory Improvement Amendments of 1988 (CLIA-88) to perform high complexity testing. Lab Abnormal Interpretation (test code = 46795-5) [facility] (COVID-19) RNA [Presence] in Respiratory specimen by TOBIAS with probe [id number] 17:55:21 Test Item Value Reference Range Interpretation Comments SARS-CoV-2 (COVID-19) RNA Not detected [Presence] in Respiratory specimen by TOBIAS with probe detection (test code = 66397-9) Whether patient is employed in a Unknown healthcare setting (test code = 72608-0) Whether the patient has symptoms Unknown related to condition of interest (test code = 39631-3) Whether the patient was Unknown hospitalized for condition of interest (test code = 42193-8) Whether the patient was admitted Unknown to intensive care unit (ICU) for condition of interest (test code = 01833-8) Whether patient resides in a Unknown congregate care setting (test code = 86783-3) status (test code = Unknown 29492-5) Date and time of symptom onset Unknown (test code = 19032-6) [facility] RNA [Presence] in Respiratory specimen by TOBIAS with probe [id number] 06:59:25 Test Item Value Reference Range Interpretation Comments SARS-CoV-2 (COVID-19) RNA Not detected [Presence] in Respiratory specimen by TOBIAS with probe detection (test code = 23370-1) Whether patient is employed in a Unknown healthcare setting (test code = 67047-2) Whether the patient has symptoms Unknown related to condition of interest (test code = 20446-1) Whether the patient was Unknown hospitalized for condition of interest (test code = 20810-0) Whether the patient was admitted Unknown to intensive care unit (ICU) for condition of interest (test code = 91744-3) Whether patient resides in a Unknown congregate care setting (test code = 99078-1) status (test code = Unknown 25857-7) Date and time of symptom onset Unknown (test code = 39884-6) [facility] [id number] 07:12:00 Test Item Value Reference Range Interpretation Comments DIRECT SMEAR - O\T\P No ova or parasites No ova or parasites (BEAKER) (test code = seen seen 196) CONCENTRATE SMEAR - No ova or parasites No ova or parasites O\T\P (BEAKER) (test seen seen code = 247) TRICHROME SMEAR - No ova or parasites No ova or parasites O\T\P (BEAKER) (test seen seen code = 248) STOOL CULTURE + SHIGA [id number] 12:14:00 Test Item Value Reference Range Interpretation Comments CULTURE (BEAKER) No Salmonella, Shigella (test code = 1095) or Campylobacter isolated CMV PCR, [id number] 14:49:00 Test Item Value Reference Range Interpretation Comments CMV VIRAL LOAD - Negative or below the NEGATIVE (BEAKER) (test linear range of the code = 2558) assay (<375 copies/mL) Cytomegalovirus (CMV) infection can cause significant disease in immunosuppressed patients. However,it is common for CMV to manifest as a limited infection which is of no clinical significance in immunosuppressed patients or in healthy individuals.Viral load measurements are helpful to identify clinical CMV infection and to guide the pre-emptive management of antiviral therapy. For treatment of CMV infection due to reactivation in transplant recipients, a threshold between 4,000 and 5,000 copies/mLis suggested. For treatment of primary CMV infection, a lower threshold can be used.CMV infection may also be monitored using weekly serial measurements. Serial measurements of CMV DNA viral load can be evaluated by identifying a 10-fold change, as well as assessing the CMV DNA viral load and the clinical context for each patient.The plasma CMV DNA viral load was detected using quantitative polymerase chain reaction and fluorescent monitoring of a specific hybridized probe. Genetic variation and other factors can affect the accuracy of nucleic acid testing. Therefore, the results should be interpreted in light of clinical data. A negative result may not exclude the presence of CMV disease.This test was developed and its performance characteristics determined by the [facility] Pathol ogy Department, Section of Molecular Pathology. It has not been cleared or approved by the U.S. Foodand Drug Administration (FDA), since FDA approval is not required for clinical use of the test. Validation was done as required by The Clinical Laboratory Improvement Amendments of 1988.CT, ABDOMEN - PELVIS, [id number] 09:40:00Reason for exam:->UC with strictureFINAL REPORT INDICATION:Abdominal pain and history of ulcerative colitis. COMPARISON: None. TECHNIQUE: CT of the Abdomen and Pelvis WITH intravenous contrast. VoLumen was administered for enteric contrast. The exam was performed according to our department dose-optimization protocol, which includes automated exposure control, adjustments of mA and kV according to patient size. Iterative reconstructions are also sometimes employed. FINDINGS:The splenic flexure of the colon demonstrates submucosal edema and mucosal hyperenhancement over a segment 25 cm in length. No stricture, fistula, or abscess demonstrated. No enteritis. There are several stones in the gallbladder measuring up to 2 cm. No biliary ductal dilatation. Liver contour and size normal and no liver mass area pancreas, spleen, adrenal glands, and kidneys are normal. Bladder and uterus unremarkable. 1 cm fat density in the right ovary, representing a small dermoid. No pelvic, retroperitoneal, or upper abdominal lymphadenopathy. Osseous structures and lower thorax unremarkable. IMPRESSION: Acute colitis of the splenic flexure. No stricture, fistula, or abscess. Cholelithiasis. Signed: Brooks Morin MDReport Verified Date/Time: 03/24/2019 09:40:40 Reading Location: [facility] B1 C013Y CT Body Reading Room L PATH [id number] 09:03:00 Test Item Value Reference Range Interpretation Comments PATHOGEN EXAM CHARGED (JIGNA) (test Done code = 2381) [id number] 06:09:00 Test Item Value Reference Range Interpretation Comments PHOSPHORUS (BEAKER) (test code = 3.1 mg/dL 2.3-4.7 604) [id number] 06:09:00 Test Item Value Reference Range Interpretation Comments MAGNESIUM (BEAKER) (test code = 2.1 mg/dL 1.6-2.6 627) BASIC METABOLIC [id number] 06:09:00 Test Item Value Reference Range Interpretation Comments SODIUM (BEAKER) 138 meq/L 136-145 (test code = 381) POTASSIUM (BEAKER) 3.9 meq/L 3.5-5.1 (test code = 379) CHLORIDE (BEAKER) 103 meq/L 98-107 (test code = 382) CO2 (BEAKER) (test 28 meq/L 22-29 code = 355) BLOOD UREA NITROGEN 6 mg/dL 7-21 L (BEAKER) (test code = 354) CREATININE (BEAKER) 0.61 mg/dL 0.57-1.25 (test code = 358) GLUCOSE RANDOM 83 mg/dL 70-105 (BEAKER) (test code = 652) CALCIUM (BEAKER) 9.1 mg/dL 8.4-10.2 (test code = 697) EGFR (BEAKER) (test 102 mL/min/1.73 ESTIM ATED GFR IS code = 1092) sq m NOT ACCURATE CREATININE CLEARANCE IN PREDICTING GLOMERULAR FILTRATION RATE . ESTIMATED GFR I S NOT APPLICABLE FOR DIALYSIS PATIEN TS. HEPATIC FUNCTION [id number] 06:09:00 Test Item Value Reference Range Interpretation Comments TOTAL PROTEIN (BEAKER) (test code = 6.9 gm/dL 6.0-8.3 770) ALBUMIN (BEAKER) (test code = 1145) 3.6 g/dL 3.5-5.0 BILIRUBIN TOTAL (BEAKER) (test code 0.2 mg/dL 0.2-1.2 = 377) BILIRUBIN DIRECT (BEAKER) (test 0.1 mg/dL 0.1-0.5 code = 706) ALKALINE PHOSPHATASE (BEAKER) (test 72 U/L 40-150 code = 346) AST (SGOT) (BEAKER) (test code = 9 U/L 5-34 353) ALT (SGPT) (BEAKER) (test code = 7 U/L 6-55 347) CBC W/PLT COUNT & AUTO [id number] 05:36:00 Test Item Value Reference Range Interpretation Comments WHITE BLOOD CELL COUNT (BEAKER) 9.1 K/ L 3.5-10.5 (test code = 775) RED BLOOD CELL COUNT (BEAKER) 3.64 M/ L 3.93-5.22 L (test code = 761) HEMOGLOBIN (BEAKER) (test code = 9.2 GM/DL 11.2-15.7 L 410) HEMATOCRIT (BEAKER) (test code = 30.2 % 34.1-44.9 L 411) MEAN CORPUSCULAR VOLUME (BEAKER) 83.0 fL 79.4-94.8 (test code = 753) MEAN CORPUSCULAR HEMOGLOBIN 25.3 pg 25.6-32.2 L (BEAKER) (test code = 751) MEAN CORPUSCULAR HEMOGLOBIN CONC 30.5 GM/DL 32.2-35.5 L (BEAKER) (test code = 752) RED CELL DISTRIBUTION WIDTH 16.0 % 11.7-14.4 H (BEAKER) (test code = 412) PLATELET COUNT (BEAKER) (test 501 K/CU MM 150-450 H code = 756) MEAN PLATELET VOLUME (BEAKER) 9.6 fL 9.4-12.3 (test code = 754) NUCLEATED RED BLOOD CELLS 0 /100 WBC 0-0 (BEAKER) (test code = 413) NEUTROPHILS RELATIVE PERCENT 62 % (BEAKER) (test code = 429) LYMPHOCYTES RELATIVE PERCENT 25 % (BEAKER) (test code = 430) MONOCYTES RELATIVE PERCENT 11 % (BEAKER) (test code = 431) EOSINOPHILS RELATIVE PERCENT 0 % (BEAKER) (test code = 432) BASOPHILS RELATIVE PERCENT 0 % (BEAKER) (test code = 437) NEUTROPHILS ABSOLUTE COUNT 5.62 K/ L 1.56-6.13 (BEAKER) (test code = 670) LYMPHOCYTES ABSOLUTE COUNT 2.29 K/ L 1.18-3.74 (BEAKER) (test code = 414) MONOCYTES ABSOLUTE COUNT (BEAKER) 1.03 K/ L 0.24-0.36 H (test code = 415) EOSINOPHILS ABSOLUTE COUNT 0.03 K/ L 0.04-0.36 L (BEAKER) (test code = 416) BASOPHILS ABSOLUTE COUNT (BEAKER) 0.02 K/ L 0.01-0.08 (test code = 417) IMMATURE GRANULOCYTES-RELATIVE 1 % 0-1 PERCENT (BEAKER) (test code = 2801) SHIGA TOXIN [id number] 15:16:00 Test Item Value Reference Range Interpretation Comments SHIGA TOXIN 1 (BEAKER) (test Not detected Not detected code = 2177) SHIGA TOXIN 2 (BEAKER) (test Not detected Not detected code = 2179) [id number] 05:53:00 Test Item Value Reference Range Interpretation Comments PHOSPHORUS (BEAKER) (test code = 2.7 mg/dL 2.3-4.7 604) [id number] 05:53:00 Test Item Value Reference Range Interpretation Comments MAGNESIUM (BEAKER) (test code = 2.1 mg/dL 1.6-2.6 627) BASIC METABOLIC [id number] 05:53:00 Test Item Value Reference Range Interpretation Comments SODIUM (BEAKER) 137 meq/L 136-145 (test code = 381) POTASSIUM (BEAKER) 4.2 meq/L 3.5-5.1 (test code = 379) CHLORIDE (BEAKER) 103 meq/L 98-107 (test code = 382) CO2 (BEAKER) (test 27 meq/L 22-29 code = 355) BLOOD UREA NITROGEN 5 mg/dL 7-21 L (BEAKER) (test code = 354) CREATININE (BEAKER) 0.57 mg/dL 0.57-1.25 (test code = 358) GLUCOSE RANDOM 95 mg/dL 70-105 (BEAKER) (test code = 652) CALCIUM (BEAKER) 9.2 mg/dL 8.4-10.2 (test code = 697) EGFR (BEAKER) (test 110 mL/min/1.73 ESTIM ATED GFR IS code = 1092) sq m NOT ACCURATE CREATININE CLEARANCE IN PREDICTING GLOMERULAR FILTRATION RATE . ESTIMATED GFR I S NOT APPLICABLE FOR DIALYSIS PATIEN TS. HEPATIC FUNCTION [id number] 05:53:00 Test Item Value Reference Range Interpretation Comments TOTAL PROTEIN (BEAKER) (test code = 6.4 gm/dL 6.0-8.3 770) ALBUMIN (BEAKER) (test code = 1145) 3.4 g/dL 3.5-5.0 L BILIRUBIN TOTAL (BEAKER) (test code 0.2 mg/dL 0.2-1.2 = 377) BILIRUBIN DIRECT (BEAKER) (test 0.1 mg/dL 0.1-0.5 code = 706) ALKALINE PHOSPHATASE (BEAKER) (test 76 U/L 40-150 code = 346) AST (SGOT) (BEAKER) (test code = 13 U/L 5-34 353) ALT (SGPT) (BEAKER) (test code = 8 U/L 6-55 347) CBC W/PLT COUNT & AUTO [id number] 05:08:00 Test Item Value Reference Range Interpretation Comments WHITE BLOOD CELL COUNT (BEAKER) 9.4 K/ L 3.5-10.5 (test code = 775) RED BLOOD CELL COUNT (BEAKER) 3.59 M/ L 3.93-5.22 L (test code = 761) HEMOGLOBIN (BEAKER) (test code = 9.0 GM/DL 11.2-15.7 L 410) HEMATOCRIT (BEAKER) (test code = 28.9 % 34.1-44.9 L 411) MEAN CORPUSCULAR VOLUME (BEAKER) 80.5 fL 79.4-94.8 (test code = 753) MEAN CORPUSCULAR HEMOGLOBIN 25.1 pg 25.6-32.2 L (BEAKER) (test code = 751) MEAN CORPUSCULAR HEMOGLOBIN CONC 31.1 GM/DL 32.2-35.5 L (BEAKER) (test code = 752) RED CELL DISTRIBUTION WIDTH 15.9 % 11.7-14.4 H (BEAKER) (test code = 412) PLATELET COUNT (BEAKER) (test 438 K/CU MM 150-450 code = 756) MEAN PLATELET VOLUME (BEAKER) 9.4 fL 9.4-12.3 (test code = 754) NUCLEATED RED BLOOD CELLS 0 /100 WBC 0-0 (BEAKER) (test code = 413) NEUTROPHILS RELATIVE PERCENT 67 % (BEAKER) (test code = 429) LYMPHOCYTES RELATIVE PERCENT 21 % (BEAKER) (test code = 430) MONOCYTES RELATIVE PERCENT 11 % (BEAKER) (test code = 431) EOSINOPHILS RELATIVE PERCENT 0 % (BEAKER) (test code = 432) BASOPHILS RELATIVE PERCENT 0 % (BEAKER) (test code = 437) NEUTROPHILS ABSOLUTE COUNT 6.25 K/ L 1.56-6.13 H (BEAKER) (test code = 670) LYMPHOCYTES ABSOLUTE COUNT 1.97 K/ L 1.18-3.74 (BEAKER) (test code = 414) MONOCYTES ABSOLUTE COUNT (BEAKER) 1.07 K/ L 0.24-0.36 H (test code = 415) EOSINOPHILS ABSOLUTE COUNT 0.04 K/ L 0.04-0.36 (BEAKER) (test code = 416) BASOPHILS ABSOLUTE COUNT (BEAKER) 0.01 K/ L 0.01-0.08 (test code = 417) IMMATURE GRANULOCYTES-RELATIVE 1 % 0-1 PERCENT (BEAKER) (test code = 2801) URINALYSIS W/ REFLEX URINE [id number] 21:50:00 Test Item Value Reference Range Interpretation Comments COLOR (BEAKER) (test code = 470) Light Yellow CLARITY (BEAKER) (test code = Clear 469) SPECIFIC GRAVITY UA (BEAKER) 1.003 1.001-1.035 (test code = 468) PH UA (BEAKER) (test code = 467) 6.5 5.0-8.0 PROTEIN UA (BEAKER) (test code = Negative Negative 464) GLUCOSE UA (BEAKER) (test code = Negative Negative 365) KETONES UA (BEAKER) (test code = Negative Negative 371) BILIRUBIN UA (BEAKER) (test code Negative Negative = 462) BLOOD UA (BEAKER) (test code = Negative Negative 461) NITRITE UA (BEAKER) (test code = Negative Negative 465) LEUKOCYTE ESTERASE UA (BEAKER) Negative Negative (test code = 466) UROBILINOGEN UA (BEAKER) (test 0.2 mg/dL 0.2-1.0 code = 463) RBC UA (BEAKER) (test code = < /HPF 519) WBC UA (BEAKER) (test code = 0 /HPF 520) SOURCE(BEAKER) (test code = 2795) C-REACTIVE [id number] 19:18:00 Test Item Value Reference Range Interpretation Comments C-REACTIVE PROTEIN (BEAKER) (test 20.33 mg/dL 0.00-0.50 H code = 676) [id number] 03:05:00 Test Item Value Reference Range Interpretation Comments MAGNESIUM (BEAKER) 2.0 mg/dL 1.6-2.6 Specimen slightly (test code = 627) hemolyzed [id number] 03:05:00 Test Item Value Reference Range Interpretation Comments PHOSPHORUS (BEAKER) 3.3 mg/dL 2.3-4.7 Specimen slightly (test code = 604) hemolyzed BASIC METABOLIC [id number] 03:05:00 Test Item Value Reference Range Interpretation Comments SODIUM (BEAKER) 133 meq/L 136-145 L (test code = 381) POTASSIUM (BEAKER) 4.3 meq/L 3.5-5.1 Specimen slightly (test code = 379) hemolyzed CHLORIDE (BEAKER) 101 meq/L 98-107 (test code = 382) CO2 (BEAKER) (test 22 meq/L 22-29 code = 355) BLOOD UREA NITROGEN 10 mg/dL 7-21 (BEAKER) (test code = 354) CREATININE (BEAKER) 0.63 mg/dL 0.57-1.25 Specimen slightly (test code = 358) hemolyzed GLUCOSE RANDOM 124 mg/dL 70-105 H (BEAKER) (test code = 652) CALCIUM (BEAKER) 8.7 mg/dL 8.4-10.2 (test code = 697) EGFR (BEAKER) (test 98 mL/min/1.73 ESTIMA PAMELA GFR IS code = 1092) sq m NOT ACCURATE CREATININE CLEARANCE IN PREDICTING GLOMERULAR FILTRATION RATE . ESTIMATED GFR I S NOT APPLICABLE FOR DIALYSIS PATIEN TS. HEPATIC FUNCTION [id number] 03:05:00 Test Item Value Reference Range Interpretation Comments TOTAL PROTEIN (BEAKER) 6.6 gm/dL 6.0-8.3 Speci men slightly (test code = 770) hemolyzed ALBUMIN (BEAKER) (test 3.5 g/dL 3.5-5.0 Speci men slightly code = 1145) hemolyzed BILIRUBIN TOTAL 0.4 mg/dL 0.2-1.2 Specimen sli ghtly (BEAKER) (test code = hemoly zed 377) BILIRUBIN DIRECT 0.2 mg/dL 0.1-0.5 Specimen sl ightly (BEAKER) (test code = hemoly zed 706) ALKALINE PHOSPHATASE 88 U/L 40-150 (BEAKER) (test code = 346) AST (SGOT) (BEAKER) 12 U/L 5-34 Specimen slightly (test code = 353) hemolyzed ALT (SGPT) (BEAKER) 10 U/L 6-55 Specimen slightly (test code = 347) hemolyzed CBC W/PLT COUNT & AUTO [id number] 02:46:00 Test Item Value Reference Range Interpretation Comments WHITE BLOOD CELL COUNT (BEAKER) 15.3 K/ L 3.5-10.5 H (test code = 775) RED BLOOD CELL COUNT (BEAKER) 4.02 M/ L 3.93-5.22 (test code = 761) HEMOGLOBIN (BEAKER) (test code = 10.3 GM/DL 11.2-15.7 L 410) HEMATOCRIT (BEAKER) (test code = 32.9 % 34.1-44.9 L 411) MEAN CORPUSCULAR VOLUME (BEAKER) 81.8 fL 79.4-94.8 (test code = 753) MEAN CORPUSCULAR HEMOGLOBIN 25.6 pg 25.6-32.2 (BEAKER) (test code = 751) MEAN CORPUSCULAR HEMOGLOBIN CONC 31.3 GM/DL 32.2-35.5 L (BEAKER) (test code = 752) RED CELL DISTRIBUTION WIDTH 16.4 % 11.7-14.4 H (BEAKER) (test code = 412) PLATELET COUNT (BEAKER) (test 621 K/CU MM 150-450 H code = 756) MEAN PLATELET VOLUME (BEAKER) 9.2 fL 9.4-12.3 L (test code = 754) NUCLEATED RED BLOOD CELLS 0 /100 WBC 0-0 (BEAKER) (test code = 413) NEUTROPHILS RELATIVE PERCENT 77 % (BEAKER) (test code = 429) LYMPHOCYTES RELATIVE PERCENT 12 % (BEAKER) (test code = 430) MONOCYTES RELATIVE PERCENT 10 % (BEAKER) (test code = 431) EOSINOPHILS RELATIVE PERCENT 0 % (BEAKER) (test code = 432) BASOPHILS RELATIVE PERCENT 0 % (BEAKER) (test code = 437) NEUTROPHILS ABSOLUTE COUNT 11.70 K/ L 1.56-6.13 H (BEAKER) (test code = 670) LYMPHOCYTES ABSOLUTE COUNT 1.87 K/ L 1.18-3.74 (BEAKER) (test code = 414) MONOCYTES ABSOLUTE COUNT (BEAKER) 1.45 K/ L 0.24-0.36 H (test code = 415) EOSINOPHILS ABSOLUTE COUNT 0.05 K/ L 0.04-0.36 (BEAKER) (test code = 416) BASOPHILS ABSOLUTE COUNT (BEAKER) 0.03 K/ L 0.01-0.08 (test code = 417) IMMATURE GRANULOCYTES-RELATIVE 1 % 0-1 PERCENT (BEAKER) (test code = 2801)
[2023-05-06] MEDS ORDERED: MORPHINE 4 MG/ML SYR ONE ×2 (16:26→21:57)
[2023-05-06] MEDS ORDERED: ONDANSETRON 4 MG/2 ML VIAL ONE (16:26)
[2023-05-06] MEDS ORDERED: NA CHLORIDE 0.9% 1,000 ML ONE (16:27)
[2023-05-06] MEDS ORDERED: DICYCLOMINE HCL 20 MG/2 ML AMP IM ONE (16:27)
[2023-05-06 17:05] LABS: Absolute Lymphocytes (CBC) 1.9 K/uL (0.7-4.9); Hematocrit 33.2 % (36.0-45.0); Lymphocytes % 19.9 % (15.3-44.8); MCV 79.4 fL (80-100); MPV 8.5 fL (7.6-11.3); Platelets 326 thou/uL (152-406); RBC Red Blood Cell Count 4.18 M/uL (3.86-4.86)
[2023-05-06 17:07] LABS: Urine Bacteria <20 /HPF (<20); Urine Bilirubin NEGATIVE (Negative); Urine Blood Negative (Negative); Urine Clarity Clear (Clear); Urine Color Light-Yellow (Yellow); Urine Glucose NEGATIVE (Negative); Urine Mucus Slight /HPF (None Seen); Urine Protein NEGATIVE (Negative); Urine RBC <5 /HPF (None Seen); Urine Urobilinogen Normal (Normal); Urine pH 5.5 (5.0-7.0)
[2023-05-06 17:23] LABS: Albumin 3.7 g/dL (3.4-5.0); Bilirubin Total 0.3 mg/dL (0.2-1.0); Potassium 3.5 mEq/L (3.5-5.1); Protein, Total 8.4 g/dL (6.4-8.2)
[2023-05-06] MEDS ORDERED: FENTANYL CITR 100 MCG/2 ML ONE (18:15)
--- NOTE | 2023-05-06 19:33 | ER ---
Nurse's Notes [facility] Name: Stephanie Doshi Age: 58 yrs Sex: Female : 1965 Arrival Date: 05/06/2023 Time: 15:46 Bed 19 Private MD: Jamie Conti Diagnosis: Complication of partial colectomy;Crohn's disease of large intestine with other complication Presentation: 05/06 16:07 Chief complaint: Nausea, diarrhea, and left sided abdominal pain x 2 weeks. Hx of hb Crohn/s, feels like typical flare. Coronavirus screen: At this time, the client does not indicate any symptoms associated with coronavirus-19. Ebola Screen: No symptoms or risks identified at this time. Initial Sepsis Screen: Does the patient meet any 2 criteria? No. Patient's initial sepsis screen is negative. Does the patient have a suspected source of infection? No. Patient's initial sepsis screen is negative. Risk Assessment: Do you want to hurt yourself or someone else? Patient reports no desire to harm self or others. Onset of symptoms was April 24, 2023. 16:07 Method Of Arrival: Ambulatory hb 16:07 Acuity: RENÉ 3 hb Historical: - Allergies: 16:08 HYDROCODONE (Hives, itch); hb 16:08 Codeine; hb 16:08 Levaquin; hb - PMHx: 16:08 Crohn's; ulcerative colitis; ulcerative colitis; hb - Immunization history:: Adult Immunizations unknown. - Social history:: Smoking status: unknown. Screenin:15 [facility] ED Fall Risk Assessment (Adult) Score/Fall Risk Level 0 - 2 = Low Risk. Abuse eh3 screen: Denies threats or abuse. Denies injuries from another. Nutritional screening: Has had N/V for 3 or more days. Tuberculosis screening: No symptoms or risk factors identified. Assessment: 16:15 General: Appears in no apparent distress. uncomfortable, Behavior is cooperative, eh3 appropriate for age, anxious. Pain: Complains of pain in left lower quadrant and left upper quadrant. Neuro: Level of Consciousness is awake, alert, obeys commands, Oriented to person, place, time, situation. Cardiovascular: Capillary refill < 3 seconds Patient's skin is warm and dry. Respiratory: Airway is patent Respiratory effort is even, unlabored, Respiratory pattern is regular, symmetrical. GI: Abdomen is round non-distended, Reports lower abdominal pain, upper abdominal pain, diarrhea, nausea, vomiting. Derm: Skin is pink, warm \\T\\ dry. Musculoskeletal: Circulation, motion, and sensation intact. Range of motion: intact in all extremities. 17:15 Reassessment: Patient appears in no apparent distress at this time. Patient and/or 3 family updated on plan of care and expected duration. Pain level reassessed. Patient is alert, oriented x 3, equal unlabored respirations, skin warm/dry/pink. 18:15 Reassessment: Patient appears in no apparent distress at this time. Patient and/or 3 family updated on plan of care and expected duration. Pain level reassessed. Patient is alert, oriented x 3, equal unlabored respirations, skin warm/dry/pink. 19:15 Reassessment: Patient appears in no apparent distress at this time. Patient and/or 3 family updated on plan of care and expected duration. Pain level reassessed. Patient is alert, oriented x 3, equal unlabored respirations, skin warm/dry/pink. Vital Signs: 16:07 BP 150 / 91; Pulse 81; Resp 16; Temp 98.7(O); Pulse Ox 100% on R/A; Weight 66.22 kg; hb Height 5 ft. 2 in. ; Pain 8/10; 17:15 BP 129 / 69; Pulse 81; Resp 16; Pulse Ox 97% on R/A; eh3 18:15 BP 127 / 82; Pulse 79; Resp 18; Pulse Ox 100% on R/A; eh3 19:15 BP 130 / 73; Pulse 79; Resp 16; Pulse Ox 99% on R/A; eh3 20:45 BP 136 / 71; Pulse 84; Resp 16 S; Pulse Ox 99% on R/A; km8 21:00 BP 134 / 73; Pulse 85; Resp 16 S; Pulse Ox 97% on R/A; km8 21:15 BP 125 / 83; Pulse 84; Resp 16 S; Pulse Ox 96% on R/A; km8 22:00 BP 127 / 72; Pulse 75; Resp 16 S; Pulse Ox 100% on R/A; km8 22:30 BP 114 / 71; Pulse 77; Resp 16 S; Pulse Ox 92% on R/A; km8 23:00 BP 129 / 78; Pulse 79; Resp 16 S; Pulse Ox 94% on R/A; [facility] 23:30 BP 119 / 76; Pulse 80; Resp 16 S; Pulse Ox 94% on R/A; [facility] 05/07 00:00 BP 121 / 74; Pulse 81; Resp 16 S; Pulse Ox 95% on R/A; [facility] 05/06 16:07 Body Mass Index 26.70 (66.22 kg, 157.48 cm) hb 05/06 16:07 Pain Scale: Adult hb ED Course: 05/06 15:48 Patient arrived in ED. mr 15:48 Jamie Conti MD is Private Physician. mr 15:54 Giovana Little FNP is [facility] 15:54 Juwan Norton MD is Attending Physician. [facility] 16:02 Eva Whitehead RN is Primary Nurse. 3 16:08 Triage completed. hb 16:15 Patient has correct armband on for positive identification. Bed in low position. Call eh3 light in reach. Side rails up X2. Provided Education on: Use of call lange. Pulse ox on. NIBP on. Door closed. Noise minimized. Lights dimmed. Warm blanket given. 16:15 Arm band placed on. eh3 17:05 Inserted saline lock: 22 gauge in right antecubital area, using aseptic technique. sm8 Blood collected. 18:43 Radiology exam delayed due to IV insertion attempt and/or patient not having mw3 appropriate IV at this time. 19:12 CT Abd/Pelvis - IV Contrast Only In Process Unspecified. EDMS 19:15 Report given to WOLF Rosales. 3 19:30 Initiated transfer to [facility] for continuity of care- patient denied due to [place] [facility] [place]. 20:25 Initiated transfer to [facility]. 5 20:41 Attending Physician role handed off by Juwan Norton MD ms3 20:41 Clinton Centeno DO is Attending Physician. ms3 20:45 to report given, patient accepted. [facility] 21:16 Received call from Marnie at [facility], "There will be a delay on admin approval [facility] because we are waiting on the patient currently in that bed to be transferred out.". 21:34 Primary Nurse role handed off by Eva WhiteheadWOLF [facility] 21:34 Connie Moulton RN is Primary Nurse. [facility] 05/07 00:12 Report given to WOLF Jordan from [facility]. km8 00:35 No provider procedures requiring assistance completed. Patient transferred, IV remains km8 in place. Administered Medications: 05/06 16:20 Drug: NS 0.9% IV 1000 ml IV at 1 bolus Per protocol; 1000 mL bolus Route: IV; Rate: 1 eh3 bolus; Site: right antecubital; 19:58 Follow up: IV Status: Completed infusion; IV Intake: 1000ml 3 16:20 Drug: Ondansetron IVP 4 mg IVP once; over 2 minutes Route: IVP; Site: right antecubital;3 19:58 Follow up: Response: No adverse reaction 3 16:20 Drug: morphine IVP or IV 4 mg IVP once over 4 mins Route: IVP; Infused Over: 4 mins; 3 Site: right antecubital; 19:59 Follow up: Response: No adverse reaction 3 16:25 Drug: Dicyclomine IM 20 mg IM once Route: IM; Site: left vastus lateralis; 3 19:58 Follow up: Response: No adverse reaction 3 18:13 Drug: fentaNYL (PF) IVP 50 mcg IVP once Route: IVP; Site: right antecubital; 3 19:59 Follow up: Response: No adverse reaction; RASS: Alert and Calm (0) 3 20:25 Drug: Ondansetron IVP 4 mg IVP once; over 2 minutes Route: IVP; Site: right forearm; eh3 21:22 Follow up: Response: No adverse reaction 3 20:30 Drug: Piperacillin-Tazobactam IVPB 4.5 grams IVPB once over 60 mins; (mix in 100 mL NS) 3 Route: IVPB; Infused Over: 60 mins; Site: right forearm; 21:30 Follow up: IV Status: Completed infusion; IV Intake: 100ml [facility] 21:48 Drug: morphine IVP or IV 4 mg IVP once over 4 mins Route: IVP; Infused Over: 4 mins; 8 Site: right hand; 22:15 Follow up: Response: No adverse reaction; Pain is decreased; RASS: Drowsy (-1) [facility] Medication: 05/07 00:35 VIS not applicable for this client. km8 Intake: 05/06 19:58 IV: 1000ml; Total: 1000ml. eh3 21:30 IV: 100ml; Total: 1100ml. km8 Outcome: 19:32 ER care complete, transfer ordered by MD. dean 05/07 00:35 [facility] by ground EMS [place] [facility] [facility] [place]. km8 Condition: good Discharge instructions given to patient, Instructed on the need for transfer, Demonstrated understanding of instructions, 00:36 Patient left the ED. km8 Signatures: Dispatcher [employer] EDMS AveryReema, Reg Reg mr Char Cheatham, RN RN Zuri Esqueda 3 Clinton Centeno, DO ms3 Eva Whitehead, RN RN 3 Giovana Little, BIOINFORMATICS COMPUTER SCIENTIST BIOINFORMATICS COMPUTER SCIENTIST 7 Mira Ferrell 8 Syeda Caro 5 Connie Moulton, WOLF RN km8
--- NOTE | 2023-05-06 19:33 | EDPHYS ---
Physician Documentation [facility] Name: Stephanie Doshi Age: 58 yrs Sex: Female : 1965 Arrival Date: 05/06/2023 Time: 15:46 Bed 19 Private MD: Jamie Conti ED Physician Clinton Centeno HPI: 05/06 16:08 This 58 yrs old Female presents to ER via Ambulatory with complaints of Zach's Flare jh7 up. 16:08 Onset: The symptoms/episode began/occurred 11 day(s) ago. Associated signs and jh7 symptoms: Pertinent positives: abdominal pain, diarrhea, Pertinent negatives: constipation, fever, vomiting. Patient reports a history of ulcerative colitis disease. She is a patient of Dr. Conti.. Historical: - Allergies: 16:08 HYDROCODONE (Hives, itch); hb 16:08 Codeine; hb 16:08 Levaquin; hb - PMHx: 16:08 Crohn's; ulcerative colitis; ulcerative colitis; hb - Immunization history:: Adult Immunizations unknown. - Social history:: Smoking status: unknown. ROS: 16:08 Constitutional: Negative for fever, chills, and weight loss, Eyes: Negative for injury, jh7 pain, redness, and discharge, Neck: Negative for injury, pain, and swelling, Cardiovascular: Negative for chest pain, palpitations, and edema, Respiratory: Negative for shortness of breath, cough, wheezing, and pleuritic chest pain, Back: Negative for injury and pain, MS/Extremity: Negative for injury and deformity, Skin: Negative for injury, rash, and discoloration, Neuro: Negative for headache, weakness, numbness, tingling, and seizure, 16:08 Abdomen/GI: Positive for abdominal pain, diarrhea, Negative for nausea, vomiting, rectal bleeding, 16:08 All other systems are negative, Exam: 16:08 Constitutional: This is a well developed, well nourished patient who is awake, alert, jh7 and in no acute distress. Head/Face: Normocephalic, atraumatic. Neck: Trachea midline, no thyromegaly or masses palpated, and no cervical lymphadenopathy. Supple, full range of motion without nuchal rigidity, or vertebral point tenderness. No Meningismus. Cardiovascular: Regular rate and rhythm with a normal S1 and S2. No gallops, murmurs, or rubs. Normal PMI, no JVD. No pulse deficits. Respiratory: Lungs have equal breath sounds bilaterally, clear to auscultation and percussion. No rales, rhonchi or wheezes noted. No increased work of breathing, no retractions or nasal flaring. Back: No spinal tenderness. No costovertebral tenderness. Full range of motion. Skin: Warm, dry with normal turgor. Normal color with no rashes, no lesions, and no evidence of cellulitis. MS/ Extremity: Pulses equal, no cyanosis. Neurovascular intact. Full, normal range of motion. Neuro: Awake and alert, GCS 15, oriented to person, place, time, and situation. Motor strength 5/5 in all extremities. Sensory grossly intact. Normal gait. 16:08 Abdomen/GI: Inspection: abdomen appears normal, Bowel sounds: normal, Palpation: soft, moderate abdominal tenderness, in the left upper quadrant and left lower quadrant, Vital Signs: 16:07 BP 150 / 91; Pulse 81; Resp 16; Temp 98.7(O); Pulse Ox 100% on R/A; Weight 66.22 kg; hb Height 5 ft. 2 in. ; Pain 8/10; 17:15 BP 129 / 69; Pulse 81; Resp 16; Pulse Ox 97% on R/A; eh3 18:15 BP 127 / 82; Pulse 79; Resp 18; Pulse Ox 100% on R/A; eh3 19:15 BP 130 / 73; Pulse 79; Resp 16; Pulse Ox 99% on R/A; eh3 20:45 BP 136 / 71; Pulse 84; Resp 16 S; Pulse Ox 99% on R/A; km8 21:00 BP 134 / 73; Pulse 85; Resp 16 S; Pulse Ox 97% on R/A; km8 21:15 BP 125 / 83; Pulse 84; Resp 16 S; Pulse Ox 96% on R/A; km8 22:00 BP 127 / 72; Pulse 75; Resp 16 S; Pulse Ox 100% on R/A; km8 22:30 BP 114 / 71; Pulse 77; Resp 16 S; Pulse Ox 92% on R/A; km8 23:00 BP 129 / 78; Pulse 79; Resp 16 S; Pulse Ox 94% on R/A; km8 23:30 BP 119 / 76; Pulse 80; Resp 16 S; Pulse Ox 94% on R/A; [facility] 05/07 00:00 BP 121 / 74; Pulse 81; Resp 16 S; Pulse Ox 95% on R/A; [facility] 05/06 16:07 Body Mass Index 26.70 (66.22 kg, 157.48 cm) hb 05/06 16:07 Pain Scale: Adult hb MDM: 05/06 15:54 Patient medically screened. [facility] 19:56 Differential diagnosis: Peritonitis, complication of colectomy, Crohn's disease [facility] flareup, ulcerative colitis, infectious diarrhea, diverticulitis. Data reviewed: vital signs, nurses notes, lab test result(s), radiologic studies, CT scan. Consideration of Admission/Observation The patient will be transferred for continuity of care. I considered the following discharge prescriptions or medication management in the emergency department Medications were administered in the Emergency Department. See MAR. Care significantly affected by the following chronic conditions: Crohn's, ulcerative colitis. Counseling: I had a detailed discussion with the patient and/or guardian regarding the historical points, exam findings, and any diagnostic results supporting the discharge/admit diagnosis, the need to transfer to another facility, for higher level of care, Continuity of care. Response to treatment: the patient's symptoms have mildly improved after treatment. Awaiting: transfer to another facility. 19:58 ED course: The patient will be transferred to [facility] where her partial [facility] colectomy was performed. Her surgeon was Dr. Joy Linder and her agile business analyst is Dr. Mae.. 20:05 Management of patient was discussed with the following: Ged Preparation Teacher: Pedro Jones, [facility] General Surgery. Informed Dr. Hatch that [facility] was at [facility]. He stated that this patient needed a colorectal surgeon and interventional radiologist which we do not have at [facility]. We will attempt to transfer the patient to another [facility] facility.. 20:16 Transition of care: Care [place] Giovana MACP[place] [facility] [place] [place]16 ED course: [facility]. Will attempt to transfer to [facility].. ms3 20:47 ED course: Discussed case with Dr Baltazar and he will consult. [place] [facility] [place] [place].. 21:28 ED course: Discussed case with Dr Leal and he accepts patient to [facility] at [facility]. ms3 Discussed acceptance with patient.. 05/06 17:06 Order name: CBC with Automated Diff; Complete Time: 17:39 EDMS 05/06 17:08 Order name: Urinalysis w/ reflexes; Complete Time: 17:39 EDMS 05/06 17:09 Order name: Comprehensive Metabolic Panel; Complete Time: 17:39 EDMS 05/06 17:09 Order name: Lipase; Complete Time: 17:39 EDMS 05/06 17:43 Order name: CT Abd/Pelvis - IV Contrast Only; Complete Time: 19:48 [facility] 05/06 16:01 Order name: IV Saline Lock; Complete Time: 16:28 7 05/06 16:01 Order name: Labs collected and sent; Complete Time: 16:28 [facility] Administered Medications: 16:20 Drug: NS 0.9% IV 1000 ml IV at 1 bolus Per protocol; 1000 mL bolus Route: IV; Rate: 1 eh3 bolus; Site: right antecubital; 19:58 Follow up: IV Status: Completed infusion; IV Intake: 1000ml 3 16:20 Drug: Ondansetron IVP 4 mg IVP once; over 2 minutes Route: IVP; Site: right antecubital;eh3 19:58 Follow up: Response: No adverse reaction eh3 16:20 Drug: morphine IVP or IV 4 mg IVP once over 4 mins Route: IVP; Infused Over: 4 mins; eh3 Site: right antecubital; 19:59 Follow up: Response: No adverse reaction eh3 16:25 Drug: Dicyclomine IM 20 mg IM once Route: IM; Site: left vastus lateralis; eh3 19:58 Follow up: Response: No adverse reaction eh3 18:13 Drug: fentaNYL (PF) IVP 50 mcg IVP once Route: IVP; Site: right antecubital; eh3 19:59 Follow up: Response: No adverse reaction; RASS: Alert and Calm (0) eh3 20:25 Drug: Ondansetron IVP 4 mg IVP once; over 2 minutes Route: IVP; Site: right forearm; eh3 21:22 Follow up: Response: No adverse reaction 3 20:30 Drug: Piperacillin-Tazobactam IVPB 4.5 grams IVPB once over 60 mins; (mix in 100 mL NS) 3 Route: IVPB; Infused Over: 60 mins; Site: right forearm; 21:30 Follow up: IV Status: Completed infusion; IV Intake: 100ml [facility] 21:48 Drug: morphine IVP or IV 4 mg IVP once over 4 mins Route: IVP; Infused Over: 4 mins; km8 Site: right hand; 22:15 Follow up: Response: No adverse reaction; Pain is decreased; RASS: Drowsy (-1) 8 Disposition: 20:42 Co-signature as Attending Physician, Clinton Centeno DO. ms3 Disposition Summary: 05/06/23 19:32 Transfer Ordered Notes: Condition: Stable jh7 Problem: an ongoing problem jh7 Symptoms: have worsened 7 Reason: Higher level of care(05/06/23 19:54) [facility] Transfer Location: [facility](05/06/23 20:43) ny3 Accepting Physician: Accepting physician(05/07/23 00:36) 8 Diagnosis - Complication of surgical procedure jh7 - Complication of partial colectomy jh7 - Crohn's disease of large intestine with other complication 7 Forms: - Medication Reconciliation Form jh7 - SBAR form 7 Signatures: Dispatcher [employer] EDMS Char Cheatham, WOLF BLOOM Clinton Centeno DO DO ms3 Eva Whitehead, WOLF BLOOM 3 Giovana Little, MANAGER GENERATION MANAGER GENERATION 7 Connie Moulton RN RN 8 Corrections: (The following items were deleted from the chart) 18:45 17:52 COMPREHENSIVE METABOLIC PANEL+C.LAB.BRZ ordered. EDMS EDMS 18:45 17:52 LIPASE+C.LAB.BRZ ordered. EDMS EDMS 18:45 17:52 Urinalysis+U.LAB.BRZ ordered. EDMS EDMS 18:55 17:52 CBC+H.LAB.BRZ ordered. EDMS EDMS 19:53 19:32 Accepting physician [place] [id number] 19:54 19:32 Private Physician at [facility] [place] [address] 19:54 19:53 Accepting physician [place] [address] 20:43 19:32 [facility] 20:43 19:54 Accepting physician [facility] 05/07 00:36 05/06 20:43 Accepting physician ms3 km8
--- NOTE | 2023-05-06 19:40 | RAD REPORT ---
EXAM DESCRIPTION: CT - Abdomen Pelvis W Contrast - 05/06/2023 7:10 pm CLINICAL HISTORY: ABD PAIN COMPARISON: Abdomen Pelvis W Contrast dated 03/21/2019; Abdomen Pelvis W Contrast dated 03/13/2019; Abdomen Pelvis W Contrast dated 09/19/2017; Abdomen Pelvis W Contrast dated 12/05/2016 TECHNIQUE: Thin cut axial CT imaging of the abdomen and pelvis was performed following intravenous a dministration of 100 mL Isovue 300. Multiplanar reformats were generated and reviewed. All CT scans are performed using dose optimization technique as appropriate and may include automated exposure control or mA/KV adjustment according to patient size. FINDINGS: No suspicious findings in the lung bases. The liver, spleen, adrenal glands, and pancreas show no suspicious findings. Gallbladder demonstrates numerous cholesterol containing stones near the fundus as well as a large marginally calcified stone near the neck. Mild prominence of the common bile duct and central intrahepatic biliary radicles, wi th the common bile duct measuring up to 7 millimeter in caliber. Symmetric renal function is seen with no hydronephrosis or suspicious renal mass. Interval sequelae of partial colectomy along the transverse/descending colon. Emanating from the sutu re line and directed superiorly and laterally, is an elongated collection of fluid and gas, with ximena cent fat stranding. This measures 4.7 x 2.6 x 2.1 cm in greatest dimensions. No dilated bowel loops. Focal wall thickening along the circumference of the large bowel adjacent to the region of the collec tion, see series 202 images 37-40. No free air, or free fluid. No hernia, mass or bulky lymphadenopat hy. Partially calcified fundal fibroid. The urinary bladder is without significant finding. No suspicious bony findings. IMPRESSION: Interval sequelae of distal partial colectomy. Elongated 4.7 cm collection of fluid and gas arising from the lateral aspect of the anastomotic sutur e line, concerning for a contained leak. Focal wall thickening along the lateral circumference of the large bowel in that region, may represen t focal inflammatory changes related to the leak or focal Crohn's disease involvement. Cholelithiasis and mild prominence of the intra and extrahepatic biliary radicles as above. Please co rrelate clinically and with bilirubin levels. The findings were communicated to Giovana Phillips on 05/06/2023 at 19:18 hours.
[2023-05-06] MEDS ORDERED: PIPERACIL/TAZO 3.375 GM VIAL IV ONE (20:17)
[2023-05-06] MEDS ORDERED: NA CHLORIDE 0.9% 100 ML ONE (20:17)
== END 2023-05-07 00:36 | disposition short-term general hospital (02) ==
LOC: ER 15:46
DX: K91.81 Other intraoperative complications of digestive system (principal); K50.118 Crohn's disease of large intestine with other complication; Z88.1 Allergy status to other antibiotic agents; Z88.5 Allergy status to narcotic agent
CPT/HCPCS: 85025; 81001; 36415; 83690; 80053; 74177; 96372; 99285; Q9967; J0500; J2543; J3010; J2405; J7030

== ENCOUNTER 2023-05-13 18:01 | Emergency (ER) | payer BC ==
--- OUTSIDE RECORDS SUMMARY | 2023-05-13 18:08 | XMS REPORT | Continuity of Care Document ---
:1965 Author Organization [facility] t Address [address] [place] [address] [place] [id number] Care Team Providers Name Role Phone GOLDIE EWING Primary Care Physician Unavailable SATYA MORALES Attending Clinician Unavailable CROW HAIR Attending Clinician Unavailable Chase Mckay MD Attending Clinician Briana Mcconnell MD Attending Clinician [phone] Kylah Ramachandran MD Attending Clinician Crow Hair MD Attending Clinician Giovanny ALBRIGHT Satya Attending Clinician NOEL BELTRAN Attending Clinician Unavailable Mony Diggs MD, Destinee Attending Clinician [phone] Yamilet Romero MD Attending Clinician CHASE MCKAY Attending Clinician Unavailable TREVA LOU Attending Clinician Unavailable Nurse, [facility] Attending Clinician Unavailable Unknown, Attending Attending Clinician Unavailable Zhanna Thorne MD Attending Clinician Joy Abbasi MA Attending Clinician Unavailable Niyah ALBRIGHT, Joy Ash Attending Clinician Marquez ALBRIGHT, Boris Encarnacion Attending Clinician Tyrone Mora Attending Clinician Stephanie Dominique MD Attending Clinician Elizabeth ALBRIGHT, Ariana Aguilar Attending Clinician [phone] Ogletree_C Attending Clinician Unavailable KAY BORDEN Attending Clinician Unavailable JEN NAJERA Attending Clinician Unavailable MD TARA BRIDGES Attending Clinician Unavailable Armstrong_Cherelle Attending Clinician Unavailable Calderon Swann Attending Clinician [phone] MADALYN JAIN Attending Clinician Unavailable AFAQ, MUHAMMED GREYSON HECTOR Admitting Clinician Unavailable TYRONE MORA Admitting Clinician Unavailable Ogletree_C Admitting Clinician Unavailable TARA BRIDGES Admitting Clinician Unavailable MD STEVE FERRER Admitting Clinician Unavailable SUSAN GARNICA Admitting Clinician Unavailable ArmstronkatB Admitting Clinician Unavailable JOY VENEGAS Admitting Clinician Unavailable ZHANNA THORNE Admitting Clinician Unavailable MADALYN JAIN Admitting Clinician Unavailable Payers Payer Name Policy Type Policy Number Effective Date Expiration Date S ource BCBS OS [id number] 2016 00:00:00 POS/PPO/EPO [place] [id number] 2016 00:00:00 [place] [id number] 2016 00:00:[place] [id number] 2016 00:00:00 [place] Problems Condition Condition Condition Status Onset Resolution Last Treating Co mments Source Name Details Category Date Date Treatment Clinician Date Crohn's Crohn's Disease Recurre 2022-[address] [facility] [address] disease of disease of nce 0-22 Swati kes large large 00:00: Medical intestine intestine 00 Cent er with with fistula fistula Large Large Disease Active 2022-[address] [facility] bowel bowel 0-22 [facility] anastomoti anastomoti 00:00: Me dical c leak c leak 00 Center Abdominal Abdominal Disease Active 2021-07 Met [facility]odi wall wall 1- st abscess abscess 00:00: Hospita 00 l Cellulitis Cellulitis Disease Active M ethodi , , 9- st abdominal abdominal 00:00: Hosp holger wall wall 00 l Abdominal Abdominal Disease Active Met hodi fluid fluid 8-17 st collection collection 00:00: Ho spita 00 l Cholecysti Cholecysti Disease Active M ethodi tis tis 8-10 st 00:00: Hospita 00 l Crohn's Crohn's Disease Active Methodi disease of disease of 01-10 st colon with colon with 00:00: Ho spita complicati complicati 00 l on on Encounter Encounter Disease Active Overview: Methodi for for 01-[address] surgical surgical 00:00: g of this Hos tayo aftercare aftercare 00 note l following following might be surgery of surgery of different digestive digestive from the system system original. Added automatic ally from request for surgery [id number] Ulcerative Ulcerative Disease Active Overview : Methodi colitis colitis 4- Formattin st 00:00: g of this Hospita 00 note l might be different from the original. Added automatic ally from request for surgery [id number] Ulcerative Ulcerative Disease Recurre [facility] colitis colitis nce 03-21 [facility] with with 00:00: Medical complicati complicati 00 Ce nter on on Allergies, Adverse Reactions, Alerts Allergy Allergy Status Severity Reaction(s) Onset Inactive Treating Comm ents Source Name Type Date Date Clinician LEVOFLOX Allergy Active High 2022-[address] [facility] [facility]IN 0-23 [facility] 00[facility] Medical 00 Center Levoflox Drug Active 2022-[address] acin Allergy 0-23 , hives [facility] 00:[facility] 00 Center Levoflox Propensi Active Hives With Method i acin ty to 03-[address] adverse 00:00: Hospita reaction 00 l s to drug HYDROCOD Allergy Active Itching [facility] ONE 01-07 [facility] 00:[facility]: Medical 00 Center HYDROCOD DRUG Active ITCHING Univers ONE INGREDI 6-24 ity of 00:00: [place] 00 Medical [facility] Hydrocod Propensi Active Itching Unive rs one ty to 01-07 ity of adverse 00:00: [place] reaction 00 Medical s Branch Hydrocod Propensi Active Itching Metho di one ty to 01-07 st adverse 00:00: Hospita reaction 00 l s to drug Hydrocod Drug Active Itching [facility] one Allergy 01-07 [facility] 00:[facility]: Medical 00 Center NO KNOWN Allergy Active [facility] ALLERGIE S Family History Family Member Diagnosis Comments Start Date Stop Date Source Natural father Hypertension [facility] Natural mother Diabetes type II [facility] Natural mother Hypertension [facility] Social History Social Habit Start Date Stop Date Quantity Comments Source History of tobacco Cigarette Smoker [facility] Sexual orientation Method ist Hospital History [facility] Non-Med Medical [facility] History SDOH [facility] Housing Places Medical Ce nter Lived Alcohol intake 2023-05-09 2023-05-09 [facility]er [facility]:00 of alcohol Medical Center (finding) Exposure to 2023-04-27 2023-05-[address] [facility] SARS-CoV-2 (event) 00:00:00 03:12:00 Medica l Center History [facility] 2023-05-07 2023-05-[address] [facility] Transport Med 00:00:00 00:00:[address] History [facility] 2023-05-07 2023-05-[address] [facility] Housing Unable to 00:00:00 00:00:00 Medical Center Pay History [facility] 2023-05-07 2023-05-[address] [facility] Housing Homeless 00:00:00 00:00:00 Medical Center Last Year History of Social 2022-09-25 2022-09-[address] function 00:00:00 00:00:00 Hospital Cigarettes smoked 2022-03-02 2022-03-[address] current (pack per 00:00:00 00:00:00 Hospita l day) - Reported Cigarette 2022-03-02 2022-03-02 [facility] pack-years 00:00:00 00:00:00 Hospital Alcohol Comment 2022-02-11 2022-02-11 occasional- Methodis t 00:00:00 00:00:00 [facility] Tobacco use and 2019-03-22 2019-03-[address] [facility] kes exposure 00:00:00 00:00:00 tobacco non-user Medical Center History [facility] 2019-03-22 2019-03-[address] [facility] Alcohol Frequency 00:00:00 00:00:00 Medical Center History [facility] 2019-03-22 2019-03-[address] [facility] Alcohol Std Drinks 00:00:00 00:00:00 Medica l Center History [facility] 2019-03-22 2019-03-[address] [facility] Alcohol Binge 00:00:00 00:00:[address] Sex Assigned At [address] [address] [facility] 00:00:00 00:00:00 Medical Center Smoking Status Start Date Stop Date Source Ex-smoker 2023-05-06 00:00:00 2023-05-06 [facility] 00:00:00 Medical Branch Occasional tobacco 2019-03-22 00:00:[address] [facility] Medical smoker Center Medications Ordered Filled Start Stop Current Ordering Indication Dosage Frequency Signature Comments Components Source Medication Medication Date Date Medication? Clinician (SIG) Name Name ertapenem 2022-07 Yes 1g Q24H Inject [address] (INVanz) 1 0-28 intravenou Tricia es g in NS 100 00:00: sly daily. Medical mL (V2B) 00 Evans IVPB predniSONE 2022-07- Yes 40mg QD Take [address] (DELTASONE) 0-28 11-27 tablets Luke s 20 MG 00:00: 23:59 (40 mg Medical tablet 00 :00 total) by Center mouth daily for 30 days . omeprazole 2022-07 Yes heartburn 20mg QD Take [address] (PRILOSEC) 0-27 by mouth [facility]ukes 20 MG 12:37: daily. Medical capsule 49 [facility] sertraline 2022-07- No 25mg QD Take [address] (ZOLOFT) 25 0-27 10-27 by mouth Tricia es MG tablet 08:47: 00:00 daily. Medic al 24 :00 [facility] azaTHIOprin 2022-07- No 50mg QD Take [address] e (IMURAN) 0-27 10-27 by mouth Luke s 50 mg 08:47: 00:00 daily. Medical tablet 24 :00 Center celecoxib 2022-07- Yes 200mg Q.5D Take [address] (CeleBREX) 0-12 05-26 capsule [facility] 200 MG 00:00: 23:59 (200 mg Medical capsule 00 :00 total) by Center mouth 2 (two) times daily . gabapentin 2022-07- Yes 300mg Q.[id number] Take [address] (NEURONTIN) 0-27 11-26 [id number] capsule [facility] 300 MG 00:00: 23:59 3D (300 mg Medical capsule 00 :00 total) by Center mouth 3 (three) times daily for 30 days. traMADoL 2022-07- Yes 50mg Take [address] (ULTRAM) 50 0- 11-06 tablet (50 L ukes mg tablet 00:00: 23:59 mg total) Me dical 00 :00 by mouth Center every 6 (six) hours as needed for up to 10 days. Max Daily Amount: 200 mg Ringer's 2022-07- Yes 1000mL QD Inject [facility] solution,la 0- 10-30 1,000 mLs Swati kes ctated 00:00: 23:59 intravenou Medi candido (lactated 00 :00 sly daily Cente r ringers, for 7 LR,) doses. sertraline 2022-07 Yes 50mg QD Take 1 [facility]I S t (ZOLOFT) 50 0-15 tablet (50 Swati kes MG tablet 00:00: mg total) Med ical 00 by mouth Center daily. Stelara 90 Yes INJECT 1 Met hodi mg/mL 3-20 ML ([address] injection 00:00: TOTAL) Hospit a 00 UNDER THE l SKIN EVERY 2 MONTHS Stelara 90 Yes INJECT 1 Met hodi mg/mL 3-20 ML ([address] injection 00:00: TOTAL) Hospit a 00 UNDER THE l SKIN EVERY 2 MONTHS ustekinumab 2022- No INJECT [address] (Stelara) 3-20 10-27 ML (90 MG Luke s 90 mg/mL 00:00: 00:00 TOTAL) Medica l Syrg 00 :00 UNDER THE Center SKIN EVERY 2 MONTHS traMADoL 2021-07 No 50mg Q6H Take 1 Metho di (ULTRAM) 50 2-22 12-22 tablet (50 s t mg tablet 15:20: 00:00 mg total) Ho spita 12 :00 by mouth l every 6 (six) hours as needed for moderate pain .acute pain. traMADoL 2021-07- No 50mg Q6H Take 1 Metho di (ULTRAM) [...] (six) hours as needed for mild pain. ferrous 2021-07 Yes 325mg QD Take [...] 33 times a l day as needed. dicyclomine 2021-07 Yes 20mg Q.25D Take 20 mg Methodi (BENTYL) 20 2-[address] mg tablet 14:58: (four) Hospit a 33 times a l day as needed. acetaminoph 2021-07 [place] [id number] 1{tbl} Q6H Take 1 Methodi en-codeine 2-02 12-[address] (TYLENOL 12:38: 00:00 mouth Hospita WITH 02 :00 every 6 l CODEINE #3) (six) 300-30 mg hours as per tablet needed for severe pain .acute pain. methocarbam 2021-07 No 500mg Q.[id number] Take 1 Methodi oL 08-[id number] (ROBAXIN) 12:38: 00:00 3D (500 [...] hours as needed for nausea or vomiting. acetaminoph 2021-07 [place] [id number] 1{tbl} Q6H Take 1 Methodi en-codeine 08-[address] (TYLENOL 12:38: 00:00 mouth Hospita WITH 02 :00 every 6 l CODEINE #3) (six) 300-30 mg hours as per tablet needed for severe pain .acute pain. methocarbam 2021-07 No 500mg Q.[id number] Take 1 Methodi oL 08-[id number] (ROBAXIN) 12:38: 00:00 3D (500 [...] as needed for nausea or vomiting. pantoprazol 2021-07 No 40mg QD Take 1 Met hodi e 08-18 tablet (40 st (PROTONIX) 00:00: 05:59 mg total) H ospita 40 MG EC 00 :00 by mouth l tablet daily for 30 days. pantoprazol 2021-07 No 40mg QD Take 1 Met hodi e 08-18 tablet (40 st (PROTONIX) 00:00: 05:59 mg total) H ospita 40 MG EC 00 :00 by mouth l tablet daily for 30 days. potassium 2021-07 Yes 8meq QD Take 1 Method i chloride 2-01 tablet (8 st (KLOR-CON) 00:00: mEq total) H ospita 8 MEQ CR 00 by mouth l tablet daily. potassium 2021-07 Yes 8meq QD Take 1 Method i chloride 2-01 tablet (8 st (KLOR-CON) 00:00: mEq total) H ospita 8 MEQ CR 00 by mouth l tablet daily. meropenem 1 2021-07- No 1g Q8H Infuse 1 g Methodi g in sodium 08-[address] chloride 00:00: 05:59 venous Hospit a 0.9 % MBP 00 :00 catheter l 50 mL IVPB every 8 (eight) hours for 30 days. meropenem 1 2021-07- No 1g Q8H Infuse [...] :00 catheter l 50 mL IVPB daily. ertapenem 1 2021- No 1g Q24H Infuse 1 g Methodi g in sodium 03-[address] chloride 00:00: 00:00 venous Hospit a 0.9 % MBP 00 :00 catheter l 50 mL IVPB daily. TPN FOR 2021- No See most Metho di DISCHARGE 03-[address] 00:00: 00:00 order. Hospita 00 :00 l TPN FOR 2021- No See most Metho di DISCHARGE 03-[address] 00:00: 00:00 order. Hospita 00 : l sertraline Yes 50mg QD Take 50 mg M ethodi (ZOLOFT) 50 5-[address] MG tablet 00:00: daily. Hospit a l sertraline Yes 50mg QD Take 50 mg M ethodi (ZOLOFT) 50 5-[address] MG tablet 00:00: daily. Hospit a l gabapentin 2022- No 300mg Q.[id number] Take 1 Methodi (NEURONTIN) 10-28-[id number] 300 mg 00:00: 04:59 3D (300 mg Hospita capsule 00 :00 total) by l mouth 3 (three) times a day. gabapentin 2022- No 300mg Q.[id number] Take 1 Methodi (NEURONTIN) 10-28- [id number] capsule st 300 mg 00:00: 04:59 3D (300 mg Hospita capsule 00 :00 total) by l mouth 3 (three) times a day. predniSONE Yes 40mg QD Take 4 [facility] (DELTASONE) 9-10 tablets [facility]ukes 10 MG 00:00: (40 mg Medical tablet 00 total) by Center mouth daily Decreased 5 mg every 7 days, till discontinu e. predniSONE 2022- No 40mg QD Take [address] (DELTASONE) 9-10 10-27 tablets Luke s 10 MG 00:00: 00:00 (40 mg Medical tablet 00 :00 total) by Center mouth daily Decreased 5 mg every 7 days, till discontinu e. sertraline Yes 25mg QD Take [address] (ZOLOFT) 25 03-25 by mouth Luke s MG tablet 18:25: daily. Medica l 06 [facility] azaTHIOprin Yes 50mg QD Take [address] e (IMURAN) 03-25 by mouth [facility]ukes 50 mg 18:25: daily. Medical tablet 06 [facility] omeprazole Yes heartburn 20mg QD Take [address] (PRILOSEC) 03-25 by mouth [facility]ukes 20 MG 18:25: daily. Medical capsule 06 [facility] foLIC acid Yes 1mg Take 1 Tab U nivers (FOLATE) 1 01-14 by mouth ity o f mg tablet 00:00: daily. [address] HYDROcodone Yes 1{tbl} Take 1 Tab Univers -acetaminop 01-14 by mouth ity of [place] (NORCO 00:00: every 4 [place] 5) 5-325 mg 00 (four) Medica l tablet hours as Branch needed for Pain (scale 1-3). multivitami Yes 1{tbl} Take 1 Tab Univers n tablet 01-14 by mouth ity of 00:00: daily. [address] omeprazole Yes 20mg Take 1 Cap U nivers (PRILOSEC) 01-14 by mouth ity o f 20 mg 00:00: daily. [place] capsule [address] [place] [address] predniSONE Yes 50mg Take 1 Tab U nivers (DELTASONE) 01-14 by mouth ity of 50 mg 00:00: daily. [place] tablet [address] [place] [address] omeprazole 2021- No 20mg QD Take 20 mg Methodi (PriLOSEC) 01-[address] 20 MG 00:00: 00:00 daily. Hospita capsule 00 :00 l omeprazole 2021- No 20mg QD Take 20 mg Methodi (PriLOSEC) 01-[address] 20 MG 00:00: 00:00 daily. Hospita capsule 00 :00 l Immunizations Ordered Immunization Filled Immunization Date Status Commen ts Source Name Name [facility] COVID-19 MRNA Unknown [facility] Com[facility] COVID-19 MRNA Unknown Completed [facility] COVID-19 MRNA Unknown Completed [facility] COVID-19 MRNA Unknown Completed [facility] COVID-19 MRNA Unknown Completed [facility] VACCINATION Vital Signs Vital Name Observation Time Observation Value Comments Source HEIGHT 2023-05-08 04:33:00 157.5 cm WEIGHT 2023-05-08 04:33:00 66.588 kg HEIGHT 2023-05-08 04:33:00 157.5 cm WEIGHT 2023-05-08 04:33:00 66.588 kg HEIGHT 2023-05-08 04:33:00 157.5 cm WEIGHT 2023-05-08 04:33:00 66.588 kg Systolic blood 2023-05-06 20:29:00 108 mm[Hg] [facility] Diastolic blood 2023-05-06 20:29:00 74 mm[Hg] Unive rsity [facility] Heart rate 2023-05-06 20:29:00 80 /min Universi ty [facility] Body temperature 2023-05-06 20:29:00 36.83 Mera [facility] 2023-05-06 20:29:00 14 /min [facility] Body height 2023-05-06 20:29:00 157.5 cm [facility] Body weight 2023-05-06 20:29:00 64.411 kg Universi [facility] BMI 2023-05-06 20:29:00 25.97 kg/m2 [facility] Oxygen saturation in 2023-05-06 20:29:00 99 /min [facility] Arterial blood by [facility] Pulse oximetry [facility] rate 2023-05-12 08:22:37 65 /min [facility] Respiratory rate 2023-05-12 08:22:37 17 /min [facility] Oxygen saturation in 2023-05-12 08:22:37 94 /min [facility] Arterial blood by [facility] Pulse oximetry Body temperature 2023-05-12 08:22:02 36.94 Mera [facility] Systolic blood 2023-05-12 08:22:00 133 mm[Hg] [facility] Diastolic blood 2023-05-12 08:22:00 78 mm[Hg] [facility] Body height 2023-05-08 04:33:00 157.5 cm [facility] Body weight 2023-05-08 04:33:00 66.588 kg [facility] BMI 2023-05-08 04:33:00 26.85 kg/m2 [facility] Body height 2022-07-27 16:39:00 157.5 cm [facility] Body weight 2022-07-27 16:39:00 66.225 kg [facility] BMI 2022-07-27 16:39:00 26.70 kg/m2 [facility] Systolic blood 2022-07-07 21:01:00 110 mm[Hg] [facility] pressure Diastolic blood 2022-07-07 21:01:00 74 mm[Hg] [facility] pressure Heart rate 2022-07-07 21:01:00 80 /min [facility] Respiratory rate 2022-07-07 17:46:00 16 /min [facility] Oxygen saturation in 2022-07-07 17:46:00 100 /min [facility] Arterial blood by Pulse oximetry Body temperature 2022-06-16 13:22:20 36.06 Mera [facility] Procedures Procedure Date / Time Performing Clinician Source Performed BASIC METABOLIC PANEL 2023-05-12 05:56[facility]23-05-12 05:56[facility]00 [facility] PHOSPHORUS 2023-05-12 05:56:00 [facility] W/PLT COUNT & AUTO 2023-05-12 05:56:00 Crow Hair [facility] MAGNESIUM 2023-05-12 05:56:00 [facility] CBC W/PLT COUNT & AUTO 2023-05-12 05:56:00 Crow Hair [facility] CBC W/PLT COUNT & AUTO 2023-05-11 06:14:00 Briana Mcconnell [facility] CALCIUM, IONIZED 2023-05-11 06:14:00 Reginaldo [facility] PHOSPHORUS 2023-05-11 06:14:00 [facility] BASIC METABOLIC PANEL 2023-05-11 06:14:00 [facility] CBC W/PLT COUNT & AUTO 2023-05-11 06:14:00 Afaq, [facility] CT DRAINAGE ABDOMINAL 2023-05-10 16:42:00 Jarrett Peace [facility] WOUND CULTURE + GRAM 2023-05-10 16:37:00 ValeriaJairo [facility] STAIN [facility] CBC W/PLT COUNT & AUTO 2023-05-10 05:15:00 Afaq, [facility] CBC W/PLT COUNT & AUTO 2023-05-10 05:15:00 Afaq, [facility] CBC W/PLT COUNT & AUTO 2023-05-09 04:37:00 Afaq, [facility] COMPREHENSIVE METABOLIC 2023-05-09 04:37:00 Afaq, [facility] PANEL [facility] CBC W/PLT COUNT & AUTO 2023-05-09 04:37:00 Afaq, [facility] BASIC METABOLIC PANEL 2023-05-08 21:08:00 Jarrett Peace [facility] CBC W/PLT COUNT & AUTO 2023-05-08 21:08:00 Jarrett Peace [facility] MAGNESIUM 2023-05-08 21:08:00 Jarrett Peace [facility] PHOSPHORUS 2023-05-08 21:08:00 Jarrett Peace [facility] CBC W/PLT COUNT & AUTO 2023-05-08 21:08:00 Jarrett Peace [facility] CREATION, ILEOSTOMY, 2023-05-08 17:15:00 Morales, Satya [facility] LAPAROSCOPIC [facility] ABORH, MANUAL 2023-05-08 14:49:00 Scarlett Abbasi [facility] TYPE AND SCREEN, 2023-05-08 14:26:00 [facility] AUTOMATED Medical Center ECG 12-LEAD 2023-05-08 13:40:30 [facility] CBC W/PLT COUNT & AUTO 2023-05-08 07:22:00 [facility]aq[facility] DIFFERENTIAL [facility] CBC W/PLT COUNT & AUTO 2023-05-08 07:22:00 Afaq, [facility] DIFFERENTIAL [facility] COMPREHENSIVE METABOLIC 2023-05-08 05:11:00 Afaq, [facility] PANEL [facility] CBC W/PLT COUNT & AUTO 2023-05-07 05:25:00 Afaq, [facility] DIFFERENTIAL [facility] METABOLIC 2023-05-07 05:25:00 Afaq, [facility] PROTHROMBIN TIME/INR 2023-05-07 05:25:00 Afaq, [facility] C-REACTIVE PROTEIN 2023-05-07 05:25:00 Afaq, [facility] LACTIC ACID, VENOUS 2023-05-07 05:25:00 Afaq, [facility] PROCALCITONIN 2023-05-07 05:25:00 Afaq, [facility] CBC W/PLT COUNT & AUTO 2023-05-07 05:25:00 Afaq, [facility] DIFFERENTIAL [facility] CT ABDOMEN PELVIS W WO 2022-06-30 19:40:33 Joy Venegas [facility] CONTRAST CBC WITH PLATELET AND 2022-06-16 16:05:[address] [facility] [place] DIFFERENTIAL BASIC METABOLIC PANEL 2022-06-16 16:05:[address] [facility] ESTIMATED GFR 2022-06-16 16:05:00 [facility] MANUAL DIFFERENTIAL 2022-06-16 16:05:00 [facility] CT ABDOMEN PELVIS W 2022-06-16 00:40:50 [facility] CONTRAST VENIPUNC NEED PHYS 2022-06-15 16:46:31 [facility] SKILL,DX OR RX ESTIMATED GFR 2022-06-15 11:08:00 [facility] FECAL CALPROTECTIN 2022-06-15 08:00:00 Dameon Calvillo [facility] VANCOMYCIN LEVEL, TROUGH 2022-06-14 17:07:00 [facility] C-REACTIVE PROTEIN 2022-06-14 11:04:00 [facility] SEDIMENT[facility] RATE 2022-06-14 11:04:00 Dameon Calvillo [facility] BASIC METABOLIC PANEL 2022-06-14 11:04:00 [facility] CBC HEMOGRAM 2022-06-14 11:04:00 DominiquePaula [facility] MAGNESIUM LEVEL 2022-06-14 11:04:00 [facility] FERRITIN LEVEL 2022-06-14 11:04:00 [facility] Ho spital TOTAL IRON BINDING 2022-06-14 11:04:00 [facility] CAPACITY VITAMIN B12 LEVEL 2022-06-14 11:04:00 [facility] ESTIMATED GFR 2022-06-14 11:04:00 [facility] POTASSIUM LEVEL 2022-06-14 02:55:00 [facility] FECAL LACTOFERRIN 2022-06-13 19:23:00 Dameon Calvillo [facility] AEROBIC CULTURE 2022-06-13 14:32:00 Ryan Kennedy spital GRAM STAIN 2022-06-13 14:32:00 [facility] ANAEROBIC CULTURE 2022-06-13 14:32:00 Brent [facility] CBC HEMOGRAM 2022-06-13 12:03:00 DominiqueStephanie spital COMPREHENSIVE METABOLIC 2022-06-13 12:03:00 [facility] PANEL MAGNESIUM LEVEL 2022-06-13 12:03:00 Paula Dominique [facility] PROTHROMBIN TIME WITH 2022-06-13 12:03:00 [facility] INR TYPE AND SCREEN 2022-06-13 12:03:00 [facility] ESTIMATED GFR 2022-06-13 12:03:00 DominiquePaulamargo Bhakta spital CBC WITH PLATELET AND 2022-06-12 11:26:00 Tyrone Mora [facility] DIFFERENTIAL COMPREHENSIVE METABOLIC 2022-06-12 11:26:00 José MiguelTyrone [facility] PANEL ESTIMATED GFR 2022-06-12 11:26:00 José MiguelTyrone [facility] LACTIC ACID LEVEL, 2022-06-12 03:25:00 Ahmet Hager [facility] SEPSIS - NOW AND REPEAT 2X EVERY 3 HOURS LACTIC ACID LEVEL, 2022-06-11 23:55:00 [facility] - NOW AND REPEAT 2X EVERY 3 HOURS COVID-19 QUALITATIVE 2022-06-11 22:44:00 [facility] CT ABDOMEN PELVIS W 2022-06-11 20:00:28 [facility] BLOOD CULT[facility], AEROBIC & 2022-06-11 17:51:[address] [facility] ANAEROBIC LACTIC ACID LEVEL, 2022-06-11 17:51:00 [facility] SEPSIS - NOW AND REPEAT 2X EVERY 3 HOURS COMPREHENSIVE METABOLIC 2022-06-11 17:51:00 [facility] CBC WITH PLATELET AND 2022-06-11 17:51:00 [facility] DIFFERENTIAL ESTIMATED GFR 2022-06-11 17:51:00 [facility] BLOOD CULTURE, AEROBIC & 2022-06-11 17:30:00 [facility] ANAEROBIC Plan of Care Planned Activity Planned Date Details Comments Source Future Scheduled 2023-05-10 Screening for malignant [facility] Test 05:23:07 neoplasm of colon Hospital (procedure) [code = 259418202] Future Scheduled 2023-05-10 Screening for malignant [facility] Test 05:23:07 neoplasm of colon Hospital (procedure) [code = 119938247] Future Scheduled 2023-05-10 Screening for malignant [facility] Test 05:23:07 neoplasm of colon Hospital (procedure) [code = 167939857] Future Scheduled 2023-05-10 Hepatitis C screening [facility] Test 05:23:07 (procedure) [code = Hospital 856016258] Future Scheduled 2023-05-10 Screening for malignant [facility] Test 05:23:07 neoplasm of cervix Hospital (procedure) [code = 018863379] Future Scheduled 2023-05-10 BREAST CANCER SCREENING [facility] 05:23:07 [code = BREAST CANCER Hospit al SCREENING] Future Scheduled 2023-05-10 Screening for malignant [facility] Test 05:23:07 neoplasm of colon Hospital (procedure) [code = 139283521] Future Scheduled 2023-05-10 Screening for malignant [facility] Test 05:23:07 neoplasm of colon Hospital (procedure) [code = 926982007] Future Scheduled 2023-05-10 SHINGLES VACCINES (1 of [facility] Test 05:23:07 2) [code = SHINGLES Hospital VACCINES (1 of 2)] Future Scheduled 2023-05-10 COVID-19 VACCINE (5 - [facility] Test 05:23:07 season) [code = Hosp ital COVID-19 VACCINE ( - season)] Future Scheduled 2023-05-10 INFLUENZA VACCINE (#1) [facility] Test 05:23:07 [code = INFLUENZA VACCINE Ho spital (#1)] Future Scheduled 2023-05-05 Screening for malignant [facility] Test 11:30:34 neoplasm of colon Hospital (procedure) [code = 080117401] Future Scheduled 2023-05-05 Screening for malignant [facility] Test 11:30:34 neoplasm of colon Hospital (procedure) [code = 364807037] Future Scheduled 2023-05-05 Screening for malignant [facility] Test 11:30:34 neoplasm of colon Hospital (procedure) [code = 177025398] Future Scheduled 2023-05-05 Hepatitis C screening [facility] Test 11:30:34 (procedure) [code = Hospital 945995275] Future Scheduled 2023-05-05 Screening for malignant [facility] Test 11:30:34 neoplasm of cervix Hospital (procedure) [code = 040137842] Future Scheduled 2023-05-05 BREAST CANCER SCREENING [facility] Test 11:30:34 [code = BREAST CANCER Hospit al SCREENING] Future Scheduled 2023-05-05 Screening for malignant [facility] Test 11:30:34 neoplasm of colon Hospital (procedure) [code = 534198608] Future Scheduled 2023-05-05 Screening for malignant [facility] Test 11:30:34 neoplasm of colon Hospital (procedure) [code = 404068442] Future Scheduled 2023-05-05 SHINGLES VACCINES (1 of [facility] 11:30:34 2) [code = SHINGLES Hospital VACCINES (1 of 2)] Future Scheduled 2023-05-05 COVID-19 VACCINE (5 - [facility] Test 11:30:34 season) [code = Hosp ital COVID-19 VACCINE (5 - season)] Future Scheduled 2023-05-05 INFLUENZA VACCINE (#1) [facility] Test 11:30:34 [code = INFLUENZA VACCINE Ho spital (#1)] Future Scheduled 2023-05-05 RSV VACCINES > 60 YR (1 - [facility] Test 11:30:34 1-dose 60+ series) [code Hos pital = RSV VACCINES > 60 YR (1 - 1-dose 60+ series)] Future Scheduled 2023-03-17 Influenza Vaccine (#1) [facility] [code = Influenza Vaccine Me dical Center (#1)] Future Scheduled 2021-08-08 COVID-19 VACCINE (4 - [facility] series) [code = COVID-19 VACCINE (4 - Booster for Moderna series)] Future Scheduled 2014-01-29 SHINGLES VACCINES ([address] [facility] Test 00:00:00 2) [code = SHINGLES Medical Center VACCINES (1 of 2)] Future Scheduled 2009-01-29 Lipid panel (procedure) [facility] Test 00:00:00 [code = 99079349] Medical Ce nter Future Scheduled 1985-01-29 Screening for malignant [facility] Test 00:00:00 neoplasm of cervix Medical C enter (procedure) [code = 403254391] Future Scheduled 1983-01-29 DTAP/TDAP/TD VACCINES ([address] [facility] Test 00:00:00 - Tdap) [code = Medical Cent er DTAP/TDAP/TD VACCINES (1 - Tdap)] Future Scheduled 1982-01-29 HEPATITIS C SCREENING [facility] 00:00[facility]00 [code = HEPATITIS C Medical Center SCREENING] Future Scheduled 1979-01-[address] [facility] Test 00:00:00 virus screening Medical Cent er (procedure) [code = 449506669] Future Scheduled [address] [facility] Test 00:00:00 Counseling and Screening [facility] (12+) [code = Tobacco Cessation Counseling and Screening (12+)] Future Scheduled 1970-01-29 Pneumococcal Vaccine: [facility] Test 00:00:00 0-64 Years (1 - PCV) [facility] [code = Pneumococcal Vaccine: 0-64 Years (1 - PCV)] Future Scheduled 1965 Screening for malignant [facility] Test 00:00:00 neoplasm of breast Medical C enter (procedure) [code = 478247320] Future Scheduled 1965 CT Colonography (combo) [facility] Test 00:00:00 [code = CT Colonography [facility] (combo)] Future Scheduled 1965 Screening for malignant [facility] Test 00:00:00 neoplasm of colon Medical Ce nter (procedure) [code = 329053283] Future Scheduled 1965 Screening for malignant [facility] Test 00:00:00 neoplasm of colon Medical Ce nter (procedure) [code = 377023757] Future Scheduled 1965 Screening for malignant [facility] Test 00:00:00 neoplasm of colon Medical Ce nter (procedure) [code = 676383735] Future Scheduled 1965 Screening for malignant [facility] Test 00:00:00 neoplasm of colon Medical Ce nter (procedure) [code = 557651497] Future Scheduled 1965 Sigmoidoscopy [code = [facility] S[facility]oidoscopy] Medical Cente r Encounters Start End Encounter Admission Attending Care Care Encounter Source Date/Time Date/Time Type Type Clinicians Facility Department ID 2023-05-30 2023-05-30 [id number] [facility] 00:00:00 00:00:00 2023-05-07 2023-05-12 Inpatient ER REGINALDO [facility] Surgery [id number] SLE 01:37:00 12:37:00 CROW 2023-05-07 2023-05-12 [facility] Mel Chase Kessler [facility] [id number] [facility] [address] 01:37:00 12:37:00 Encounter Jayesh Jayeshkhushbu Alvarado [facility] 2023-05-10 2023-05-10 [facility] [id number] [facility] 15:47:52 23:59:00 2023-05-10 2023-05-10 Hospital [facility] [id number] 15:25:00 23:59:00 Encounter Jayesh Mcconnellkhushbu Alvarado [facility] 2023-05-10 2023-05-10 Outpatient KOKI HERNÁNDEZ [facility] [id number] SLE 00:00:00 00:00:00 ShahzadSAMYNOEL 2023-05-08 2023-05-08 Surgery [facility] [id number] 17:00:00 19:40:00 [facility] 2023-05-08 2023-05-[address] [facility] [id number] [facility] 17:15:00 18:57:00 Event Yamilet Romero [facility] 2023-05-07 2023-05-07 Travel [facility] [id number] [facility] 00:[facility]00 00:00:00 [facility] 2023-05-06 2023-05-06 Outpatient Melvin LOU [facility] [id number] Univers 15:15:00 15:45:29 [facility] 2023-05-06 2023-05-06 Nurse Nurse, [facility] 1.2.840.114 [id number] [facility] 15:15:00 15:35:00 Visit Unknown, [facility]2.7.2.686 Quinn as YOUSIF?BLEA [phone] [address] MEDICAL OFFICE BUILDING 2023-05-05 2023-05-05 Outpatient [facility] [id number] [place] 00:00:00 00:00:[address] 2022-10-01 2022-10-01 Refill Thorne, 1.2.840.1 [id number] Methodi 00:00:00 00:00:[address] [facility] 3.430.2.7 Hospit a .3.539558 l .8 2022-10-01 2022-10-01 Refill Thorne, 1.2.840.1 [id number] Methodi 00:00:00 00:00:[address] [facility] 3.430.2.7 Hospit a .3.581188 l .8 2022-08-08 2022-08-08 Telephone Joy Abbasi 1.2.840.1 [id number] Methodi 00:00:00 00:00:[address] 3.430.2.7 Hospit a .3.448667 l .8 2022-08-08 2022-08-08 Telephone Joy Abbasi 1.2.840.1 [id number] Methodi 00:00:00 00:00:[address] 3.430.2.7 Hospit a .3.543798 l .8 2022-07-27 2022-07-27 Office Haradhat, 1.2.840.1 [id number] Methodi 10:30:00 11:02:25 Visit oJy Ash 26473.1.1 674 s t 3.430.2.7 Hospit a .3.346938 l .8 2022-07-27 2022-07-27 Office Delvint, 1.2.840.1 [id number] Methodi 10:30:00 11:02:25 Visit Joy Ash 91477.1.1 674 s t 3.430.2.7 Hospit a .3.833970 l .8 2022-07-27 2022-07-27 Travel 1.2.840.1 1.2.391.411 0355 [id number] Methodi 00:00:00 00:00:[address] 3.430.2.7 0.2.7.3.698 Ho spita .3.263294 084.8 l .8 2022-07-27 2022-07-27 Travel 1.2.840.1 1.2.292.616 9194 [id number] Methodi 00:00:00 00:00:[address] 3.430.2.7 0.2.7.3.698 Ho spita .3.579638 084.8 l .8 2022-07-08 2022-07-08 Telephone Joy Abbasi 1.2.840.1 [id number] Methodi 00:00:00 00:00:[address] 3.430.2.7 Hospit a .3.581934 l .8 2022-07-08 2022-07-08 Telephone Joy Abbasi 1.2.840.1 [id number] Methodi 00:00:00 00:00:[address] 3.430.2.7 Hospit a .3.731249 l .8 2022-07-07 2022-07-07 Office Thorne, 1.2.840.1 [id number] Methodi 14:45:00 15:26:23 Visit Zhanna 86766.1.[address] [facility] 3.430.2.7 Hospit a .3.016371 l .8 2022-07-07 2022-07-07 Office [facility], 1.2.840.1 [id number] Methodi 14:45:00 15:26:23 Visit Zhanna 14337.1.[address] [facility] 3.430.2.7 Hospit a .3.663661 l .8 2022-07-07 2022-07-07 Office [facility], 1.2.840.1 [id number] Methodi 11:30:00 12:58:24 Visit Joy Ash 83337.1.1 357 s t 3.430.2.7 Hospit a .3.921144 l .8 2022-07-07 2022-07-07 Office [facility], 1.2.840.1 [id number] Methodi 11:30:00 12:58:24 Visit Joy Ash 93574.1.1 357 s t 3.430.2.7 Hospit a .3.436045 l .8 2022-07-07 2022-07-07 Travel 1.2.840.1 1.2.695.176 0308 [id number] Methodi 00:00:00 00:00:[address] 3.430.2.7 0.2.7.3.698 Ho spita .3.107013 084.8 l .8 2022-07-07 2022-07-07 Travel 1.2.840.1 1.2.181.169 8649 [id number] Methodi 00:00:00 00:00:[address] 3.430.2.7 0.2.7.3.698 Ho spita .3.800966 084.8 l .8 2022-06-30 2022-06-30 [facility], 1.2.840.1 [id number] [id number] Methodi 12:56:45 23:59:00 Encounter Joy Ash 85005.1.[address] 3.430.2.7 Hospit a .3.729914 l .8 2022-06-30 2022-06-30 [facility], 1.2.840.1 [id number] Methodi 12:56:45 23:59:00 Encounter Joy Ash 04030.1.[address] 3.430.2.7 Hospit a .3.442641 l .8 2022-06-30 2022-06-30 Travel 1.2.840.1 1.2.283.954 7149 [id number] Methodi 00:00:00 00:00:[address] 3.430.2.7 0.2.7.3.698 Ho spita .3.980398 084.8 l .8 2022-06-30 2022-06-30 Travel 1.2.840.1 1.2.610.813 7135 233212 Methodi 00:00:00 00:00:[address] 3.430.2.7 0.2.7.3.698 Ho spita .3.289780 084.8 l .8 2022-06-11 2022-06-16 [facility] Boris Bradley 1.2.840.1 [id number] Methodi 11:23:00 12:38:00 Encounter Tyrone Mora 02293.1.[address] [facility] 3.430.2.7 [facility] .3.376016 l .8 2022-06-11 2022-06-16 [facility] Boris Bradley 1.2.840.1 [id number] Methodi 11:23:00 12:38:00 Encounter Tyrone Mora 87239.1.[address] [facility] 3.430.2.7 [facility] .3.331437 l .8 2022-06-11 2022-06-11 Travel 1.2.840.1 1.2.794.160 9627 [id number] Methodi 00:00:00 00:00:[address] 3.430.2.7 0.2.7.3.698 Ho spita .3.542540 084.8 l .8 2022-06-11 2022-06-11 Travel 1.2.840.1 1.2.613.169 0766 092662 Methodi 00:00:00 00:00:[address] 3.430.2.7 0.2.7.3.698 Ho spita .3.480033 084.8 l .8 2022-05-17 2022-05-17 Travel 1.2.840.1 1.2.223.762 5471 521957 Methodi 00:00:00 00:00:[address] 3.430.2.7 0.2.7.3.698 Ho spita .3.193846 084.8 l .8 2022-05-17 2022-05-17 Travel 1.2.840.1 1.2.774.363 0804 [id number] Methodi 00:00:00 00:00:[address] 3.430.2.7 0.2.7.3.698 Ho spita .3.785254 084.8 l .8 2022-05-11 2022-05-11 Dannie Venegas 1.2.840.1 [id number] 01813 Methodi 10:00:00 12:20:00 Visit Joy Ash 65210.1.1 563 s t 3.430.2.7 Hospit a .3.352755 l .8 2022-05-11 2022-05-11 Joy Villanueva 1.2.840.1 [id number] Methodi 00:00:00 00:00:[address] 3.430.2.7 Hospit a .3.571643 l .8 2022-05-11 2022-05-11 Travel 1.2.840.1 1.2.175.713 4674 967001 Methodi 00:00:00 00:00:00 41229.1.1 350.1.13.43 715 3.430.2.7 0.2.7.3.698 spita .3.828007 084.8 l .8 2022-05-09 2022-05-09 Outpatient Ogletree_C [facility] [id number] [place] 00:00:00 00:00:00 70332 [facility] 2022-04-27 2022-04-27 Outpatient YASUDHAVIAN, [facility] [id number] [place] 00:00:00 00:00:00 KAY 666 Method i 2022-04-26 2022-04-26 Outpatient HARADHAT, [facility] [id number] [place] 00:00:00 00:00:[address] JOY [address] 2022-04-25 2022-04-25 Emergency MARQUEZ, [facility] [id number] 2501 [place] 00:00:00 00:00:00 BORIS [address] 2022-04-14 2022-04-14 Outpatient DELVINT, [facility] [id number] [place] 00:00:00 00:00:00 JOY [address] 2022-04-04 2022-04-04 Outpatient Ogletree_C [facility] [id number] [place] 00:00:00 00:00:00 91078 [facility] 2022-03-30 2022-03-30 Outpatient NIYAH, [facility] [id number] [place] 00:00:00 00:00:[address] JOY [address] 2022-03-19 2022-03-22 Outpatient JEN NAJERA [facility] [id number] [place] 00:00:00 00:00:[address] 2022-03-02 2022-03-15 Inpatient YULIANA, [facility] 064 [id number] [place] 00:00:00 00:00:[address] TARA [address] 2022-03-10 2022-03-10 Outpatient Armstrong_B U [facility] 478 [id number] [place] 00:00:00 00:00:00 39555 [facility] 2022-03-02 2022-03-02 Outpatient DELVINT, [facility] [id number] [place] 00:00:00 00:00:00 JOY [address] 2022-02-28 2022-02-28 Outpatient Ogletree_C [facility] 4770 [id number] [place] 00:00:00 00:00:00 00515 [facility] 2022-02-27 2022-02-27 Outpatient Armstrong_B [facility] 478 [id number] [place] 00:00:00 00:00:00 51145 [facility] 2022-02-11 2022-02-24 Inpatient DELVINT, [facility] [id number] [place] 00:00:00 00:00:00 JOY [address] 2022-02-11 2022-02-11 Outpatient Ogletree_C [facility] U 4770 [id number] [place] 00:00:00 00:00:00 02096 [facility] 2022-02-11 2022-02-11 Calderon [facility] [place] - [id number] H danielle 00:00:00 00:00:00 Meche Cintron MD: [id number] [address], [place] [address] , Ph. 2022-02-11 2022-02-11 Outpatient AASHISH SwannU U 0a0c 00:00:00 00:00:00 Calderon [id number] Elias [id number] 2022-02-09 2022-02-09 Outpatient NIYAH, [facility] [id number] [place] 00:00:00 00:00:00 JOY [address] 2022-02-07 2022-02-07 Outpatient Ogletree_C [facility] 4770 [id number] [place] 12:38:00 12:38:00 96661 [facility] 2022-02-01 2022-02-01 Outpatient Ogletree_C [facility] 4770 [id number] [place] 03:01:00 03:01:00 97541 [facility] 2022-01-10 2022-01-10 Outpatient HAUBERT, [facility] [id number] [place] 00:00:00 00:00:00 JOY 162 Method i 2021-12-31 2021-12-31 Outpatient THORNE, [facility] [id number] 427 [place] 00:00:00 00:00:00 SVETANG 352 Method i 2021-12-20 2021-12-20 Outpatient [facility] [id number] 584 [place] 00:00:00 00:00:00 SVETANG 801 Method i 2021-10-28 2021-10-28 Outpatient [facility], [facility] [id number] [place] 00:00:00 00:00:00 SVETANG 464 Method i Results Test Description Test Time Test Comments Results Result Comments Source BASIC METABOLIC PANEL 2023-05-12 06:42:54 Test Item Value Reference Range Interpretation Comme nts SODIUM (BEAKER) (test 142 meq/L 136-145 code = 381) POTASSIUM (BEAKER) 4.7 meq/L 3.5-5.1 Specimen slightly hemolyzed (test code = 379) CHLORIDE (BEAKER) (test 105 meq/L 98-107 code = 382) CO2 (BEAKER) (test code 27 meq/L 22-29 = 355) BLOOD UREA NITROGEN 13 mg/dL 7-21 (BEAKER) (test code = 354) CREATININE (BEAKER) 0.69 mg/dL 0.57-1.25 Specimen slightly hemolyzed (test code = 358) GLUCOSE RANDOM (BEAKER) 132 mg/dL 70-105 H (test code = 652) CALCIUM (BEAKER) (test 10.0 mg/dL 8.4-10.2 code = 697) EGFR (BEAKER) (test 100 mL/min/1.73 sq I nterpretation of eGFR values code = 1092) m Stage Descripti on Result G1 Normal or high >=90 G2 Mildly decreased 60-89 G3a Mildly to moderately 45-5 9 G3b Moderately to severely 30- 44 G4 Severly decreased 15-29 G5 Kidney failure <15Repo rted eGFR is based on the CK D-EPI 2020 equation that d oes not use a race coefficien tEstimated GFR is not as accurate as Creatinine Clearance in pr edicting glomerular filt ration rate. Estimated GFR i s not applicable for dialysis carolann santiago Acid Washer Operator ID - [id number] 06:42:53 Test Item Value Reference Range Interpretation Comments MAGNESIUM (BEAKER) 1.7 mg/dL 1.6-2.6 Specimen slightly (test code = 627) hemolyzed Acid Washer Operator ID - [id number] 06:42:53 Test Item Value Reference Range Interpretation Comments PHOSPHORUS (BEAKER) 3.8 mg/dL 2.3-4.7 Specimen slightly (test code = 604) hemolyzed Acid Washer Operator ID - MARCOCALCIUM, [id number] 06:31:47 Test Item Value Reference Range Interpretation Comments CALCIUM IONIZED (BEAKER) (test 1.18 mmol/L 1.12-1.27 code = 698) PH, BLOOD (BEAKER) (test code = 7.43 1810) CBC W/PLT COUNT & AUTO [id number] 06:24:26 Test Item Value Reference Range Interpretation Comments WHITE BLOOD CELL COUNT (BEAKER) 6.1 K/ L 3.5-10.5 (test code = 775) RED BLOOD CELL COUNT (BEAKER) 4.32 M/ L 3.93-5.22 (test code = 761) HEMOGLOBIN (BEAKER) (test code = 10.7 GM/DL 11.2-15.7 L 410) HEMATOCRIT (BEAKER) (test code = 34.7 % 34.1-44.9 411) MEAN CORPUSCULAR VOLUME (BEAKER) 80 fL 79-95 (test code = 753) MEAN CORPUSCULAR HEMOGLOBIN 24.8 pg 25.6-32.2 L (BEAKER) (test code = 751) MEAN CORPUSCULAR HEMOGLOBIN CONC 30.8 GM/DL 32.2-35.5 L (BEAKER) (test code = 752) RED CELL DISTRIBUTION WIDTH 14.0 % 11.7-14.4 (BEAKER) (test code = 412) PLATELET COUNT (BEAKER) (test 385 K/CU MM 150-450 code = 756) MEAN PLATELET VOLUME (BEAKER) 10.3 fL 9.4-12.3 (test code = 754) NUCLEATED RED BLOOD CELLS 0 /100 WBC 0-0 (BEAKER) (test code = 413) NEUTROPHILS RELATIVE PERCENT 80 % (BEAKER) (test code = 429) LYMPHOCYTES RELATIVE PERCENT 16 % (BEAKER) (test code = 430) MONOCYTES RELATIVE PERCENT 3 % (BEAKER) (test code = 431) EOSINOPHILS RELATIVE PERCENT 0 % (BEAKER) (test code = 432) BASOPHILS RELATIVE PERCENT 0 % (BEAKER) (test code = 437) NEUTROPHILS ABSOLUTE COUNT 4.84 K/ L 1.56-6.13 (BEAKER) (test code = 670) LYMPHOCYTES ABSOLUTE COUNT 0.99 K/ L 1.18-3.74 L (BEAKER) (test code = 414) MONOCYTES ABSOLUTE COUNT (BEAKER) 0.16 K/ L 0.24-0.36 L (test code = 415) EOSINOPHILS ABSOLUTE COUNT 0.00 K/ L 0.04-0.36 L (BEAKER) (test code = 416) BASOPHILS ABSOLUTE COUNT (BEAKER) 0.02 K/ L 0.01-0.08 (test code = 417) IMMATURE GRANULOCYTES-RELATIVE 1.00 % 0.00-1.00 PERCENT (BEAKER) (test code = 2801) CT DRAINAGE [id number] 09:16:44 [facility] : 1965 Sex: FPROCEDURE: Fluid collection aspirationProcedural PersonnelAttending physician(s): Jairo HUANGre-procedure diagnosis: Left pericolic gutter small collectionPost-procedure diagnosis: SameIndication: Post-operative fluid collectionAdditional clinical history: NoneComplications: No immediate complications.IMPRESSION:Percutaneous aspiration of left pericolic gutter small collection,yielding three mLof bloody purulent fluid. No drainage catheter wasleft in place.Plan: Follow-up microbiology PROCEDURE SUMMARY:- Aspiration of fluidcollection under CT guidance- Additional procedure(s): NonePROCEDURE DETAILS:Pre-procedureConsent: Informed consent for the procedure including risks, benefitsand alternatives was obtained and time-outwas performed prior to theprocedure.Preparation: The site was prepared and draped using maximal sterilebarrier technique including cutaneous antisepsis.Anesthesia/sedationLevel of anesthesia/sedation: Moderate sedation (conscious sedation)Anesthesia/sedation administered by: Independent trained observer underattending supervision with continuous monitoring of the patient?s levelof consciousness and physiologic statusTotal intra-service sedation time (minutes): 20Fluid collection aspirationThe patient was positioned supine. Initial imaging was performed. Localanesthesia was administered. The fluid co llection was accessed using anaccess needle. Position within the fluid collection was confirmed, andfluid aspiration was performed. All instruments were then removed.- Initial imaging findings: Small pericolic gutter collection- Aspiration needle/catheter: 5 Y[place] Patricia- Post-aspiration imaging findings: Partial drainage of the fluidcollectionContrastContrast agent: NoneRadiation DoseCT dose length product (mGy-cm): 887 Additional DetailsAdditional description of procedure: NoneEquipment details: NoneSpecimens removed: Aspirated fluid was sent for analysis.Estimated blood loss (mL): Less than 5Electronically Signed By: Jairo Shaw05/11/2023 09:18 CDTWorkstation Name: [id number] 07:17:26 Test Item Value Reference Range Interpretation Comments PHOSPHORUS (BEAKER) (test code = 4.2 mg/dL 2.3-4.7 604) Acid Washer Operator ID - ADMINBASIC METABOLIC [id number] 07:17:25 Test Item Value Reference Range Interpretation Comments SODIUM (BEAKER) 138 meq/L 136-145 (test code = 381) POTASSIUM 3.9 meq/L 3.5-5.1 (BEAKER) (test code = 379) CHLORIDE (BEAKER) 103 meq/L 98-107 (test code = 382) CO2 (BEAKER) 28 meq/L 22-29 (test code = 355) BLOOD UREA 10 mg/dL 7-21 NITROGEN (BEAKER) (test code = 354) CREATININE 0.67 mg/dL 0.57-1.25 (BEAKER) (test code = 358) GLUCOSE RANDOM 100 mg/dL 70-105 (BEAKER) (test code = 652) CALCIUM (BEAKER) 9.3 mg/dL 8.4-10.2 (test code = 697) EGFR (BEAKER) 101 Interpretatio n of eGFR (test code = mL/min/1.73 values Stage De scription 1092) sq m Result G1 Geraldine l or high >=90 G2 Mildly decreased 60-89 G3a Mildl y to moderately 45-5 9 G3b Moderately to s everely 30-44 G4 Severl y decreased 15-29 G5 Kidney failure <15Reported eGF R is based on the CKD-EPI 2020 equation that d oes not use a race coefficientEsti mated GFR is not as accur ate as Creatinine Kenzie herve in predicting glom erular filtration rate . Estimated GFR is not appl icable for dialysis patien ts Acid Washer Operator ID - ADMINCALCIUM, [id number] 06:28:34 Test Item Value Reference Range Interpretation Comments CALCIUM IONIZED (BEAKER) (test 1.20 mmol/L 1.12-1.27 code = 698) PH, BLOOD (BEAKER) (test code = 7.38 1810) CBC W/PLT COUNT & AUTO [id number] 06:27:11 Test Item Value Reference Range Interpretation Comments WHITE BLOOD CELL COUNT (BEAKER) 4.9 K/ L 3.5-10.5 (test code = 775) RED BLOOD CELL COUNT (BEAKER) 4.32 M/ L 3.93-5.22 (test code = 761) HEMOGLOBIN (BEAKER) (test code = 10.7 GM/DL 11.2-15.7 L 410) HEMATOCRIT (BEAKER) (test code = 35.1 % 34.1-44.9 411) MEAN CORPUSCULAR VOLUME (BEAKER) 81 fL 79-95 (test code = 753) MEAN CORPUSCULAR HEMOGLOBIN 24.8 pg 25.6-32.2 L (BEAKER) (test code = 751) MEAN CORPUSCULAR HEMOGLOBIN CONC 30.5 GM/DL 32.2-35.5 L (BEAKER) (test code = 752) RED CELL DISTRIBUTION WIDTH 14.2 % 11.7-14.4 (BEAKER) (test code = 412) PLATELET COUNT (BEAKER) (test 324 K/CU MM 150-450 code = 756) MEAN PLATELET VOLUME (BEAKER) 9.9 fL 9.4-12.3 (test code = 754) NUCLEATED RED BLOOD CELLS 0 /100 WBC 0-0 (BEAKER) (test code = 413) NEUTROPHILS RELATIVE PERCENT 47 % (BEAKER) (test code = 429) LYMPHOCYTES RELATIVE PERCENT 40 % (BEAKER) (test code = 430) MONOCYTES RELATIVE PERCENT 10 % (BEAKER) (test code = 431) EOSINOPHILS RELATIVE PERCENT 3 % (BEAKER) (test code = 432) BASOPHILS RELATIVE PERCENT 0 % (BEAKER) (test code = 437) NEUTROPHILS ABSOLUTE COUNT 2.29 K/ L 1.56-6.13 (BEAKER) (test code = 670) LYMPHOCYTES ABSOLUTE COUNT 1.96 K/ L 1.18-3.74 (BEAKER) (test code = 414) MONOCYTES ABSOLUTE COUNT (BEAKER) 0.47 K/ L 0.24-0.36 H (test code = 415) EOSINOPHILS ABSOLUTE COUNT 0.13 K/ L 0.04-0.36 (BEAKER) (test code = 416) BASOPHILS ABSOLUTE COUNT (BEAKER) 0.02 K/ L 0.01-0.08 (test code = 417) IMMATURE GRANULOCYTES-RELATIVE 0.40 % 0.00-1.00 PERCENT (BEAKER) (test code = 2801) CBC W/PLT COUNT & AUTO [id number] 06:08:50 Test Item Value Reference Range Interpretation Comments WHITE BLOOD CELL COUNT (BEAKER) 5.4 K/ L 3.5-10.5 (test code = 775) RED BLOOD CELL COUNT (BEAKER) 3.75 M/ L 3.93-5.22 L (test code = 761) HEMOGLOBIN (BEAKER) (test code = 9.3 GM/DL 11.2-15.7 L 410) HEMATOCRIT (BEAKER) (test code = 29.9 % 34.1-44.9 L 411) MEAN CORPUSCULAR VOLUME (BEAKER) 80 fL 79-95 (test code = 753) MEAN CORPUSCULAR HEMOGLOBIN 24.8 pg 25.6-32.2 L (BEAKER) (test code = 751) MEAN CORPUSCULAR HEMOGLOBIN CONC 31.1 GM/DL 32.2-35.5 L (BEAKER) (test code = 752) RED CELL DISTRIBUTION WIDTH 13.9 % 11.7-14.4 (BEAKER) (test code = 412) PLATELET COUNT (BEAKER) (test 289 K/CU MM 150-450 code = 756) MEAN PLATELET VOLUME (BEAKER) 10.3 fL 9.4-12.3 (test code = 754) NUCLEATED RED BLOOD CELLS 0 /100 WBC 0-0 (BEAKER) (test code = 413) NEUTROPHILS RELATIVE PERCENT 43 % (BEAKER) (test code = 429) LYMPHOCYTES RELATIVE PERCENT 45 % (BEAKER) (test code = 430) MONOCYTES RELATIVE PERCENT 9 % (BEAKER) (test code = 431) EOSINOPHILS RELATIVE PERCENT 2 % (BEAKER) (test code = 432) BASOPHILS RELATIVE PERCENT 0 % (BEAKER) (test code = 437) NEUTROPHILS ABSOLUTE COUNT 2.32 K/ L 1.56-6.13 (BEAKER) (test code = 670) LYMPHOCYTES ABSOLUTE COUNT 2.43 K/ L 1.18-3.74 (BEAKER) (test code = 414) MONOCYTES ABSOLUTE COUNT (BEAKER) 0.51 K/ L 0.24-0.36 H (test code = 415) EOSINOPHILS ABSOLUTE COUNT 0.13 K/ L 0.04-0.36 (BEAKER) (test code = 416) BASOPHILS ABSOLUTE COUNT (BEAKER) 0.02 K/ L 0.01-0.08 (test code = 417) IMMATURE GRANULOCYTES-RELATIVE 0.40 % 0.00-1.00 PERCENT (BEAKER) (test code = 2801) COMPREHENSIVE METABOLIC [id number] 05:28:35 Test Item Value Reference Range Interpretation Comments TOTAL PROTEIN 7.8 gm/dL 6.0-8.3 Specimen sligh tly (BEAKER) (test hemolyzed code = 770) ALBUMIN (BEAKER) 3.9 g/dL 3.5-5.0 Specimen sl ightly (test code = 1145) hemolyzed ALKALINE 113 U/L 40-150 PHOSPHATASE (BEAKER) (test code = 346) BILIRUBIN TOTAL 0.3 mg/dL 0.2-1.2 Specimen sli ghtly (BEAKER) (test hemolyzed code = 377) SODIUM (BEAKER) 138 meq/L 136-145 (test code = 381) POTASSIUM (BEAKER) 4.4 meq/L 3.5-5.1 Specimen slightly (test code = 379) hemolyzed CHLORIDE (BEAKER) 102 meq/L 98-107 (test code = 382) CO2 (BEAKER) (test 24 meq/L 22-29 code = 355) BLOOD UREA 7 mg/dL 7-21 NITROGEN (BEAKER) (test code = 354) CREATININE 0.61 mg/dL 0.57-1.25 Specimen slight ly (BEAKER) (test hemolyzed code = 358) GLUCOSE RANDOM 114 mg/dL 70-105 H (BEAKER) (test code = 652) CALCIUM (BEAKER) 9.6 mg/dL 8.4-10.2 (test code = 697) AST (SGOT) 21 U/L 5-34 Specimen slight ly (BEAKER) (test hemolyzed code = 353) ALT (SGPT) 15 U/L 6-55 Specimen slight ly (BEAKER) (test hemolyzed code = 347) EGFR (BEAKER) 103 Interpretatio n of eGFR (test code = 1092) mL/min/1.[address] age Description sq m Result G1 Geraldine l or high >=90 G2 Mildly decreased 60-89 G3a Mildl y to moderately 45-5 9 G3b Moderately to s everely 30-44 G4 Severl y decreased 15-29 G5 Kidney failure <15Reported eGF R is based on the CKD-EPI 2021 equation that d oes not use a race coefficientEsti mated GFR is not as accur ate as Creatinine Kenzie edgar in predicting glom erular filtration rate . Estimated GFR is not appl icable for dialysis patien ts Acid Washer Operator ID - emCBC W/PLT COUNT & AUTO [id number] 04:59:14 Test Item Value Reference Range Interpretation Comments WHITE BLOOD CELL COUNT 7.1 K/ L 3.5-10.5 (BEAKER) (test code = 775) RED BLOOD CELL COUNT 4.51 M/ L 3.93-5.22 (BEAKER) (test code = 761) HEMOGLOBIN (BEAKER) 11.4 GM/DL 11.2-15.7 (test code = 410) HEMATOCRIT (BEAKER) 37.7 % 34.1-44.9 (test code = 411) MEAN CORPUSCULAR 84 fL 79-95 Discordant results VOLUME (BEAKER) (test compar ed to code = 753) previous, clini candido correlation required. MEAN CORPUSCULAR 25.3 pg 25.6-32.2 L HEMOGLOBIN (BEAKER) (test code = 751) MEAN CORPUSCULAR 30.2 GM/DL 32.2-35.5 L HEMOGLOBIN CONC (BEAKER) (test code = 752) RED CELL DISTRIBUTION 13.6 % 11.7-14.4 WIDTH (BEAKER) (test code = 412) PLATELET COUNT 300 K/CU MM 150-450 (BEAKER) (test code = 756) MEAN PLATELET VOLUME 10.0 fL 9.4-12.3 (BEAKER) (test code = 754) NUCLEATED RED BLOOD 0 /100 WBC 0-0 CELLS (BEAKER) (test code = 413) NEUTROPHILS RELATIVE 89 % PERCENT (BEAKER) (test code = 429) LYMPHOCYTES RELATIVE 9 % PERCENT (BEAKER) (test code = 430) MONOCYTES RELATIVE 2 % PERCENT (BEAKER) (test code = 431) EOSINOPHILS RELATIVE 0 % PERCENT (BEAKER) (test code = 432) BASOPHILS RELATIVE 0 % PERCENT (BEAKER) (test code = 437) NEUTROPHILS ABSOLUTE 6.27 K/ L 1.56-6.13 H COUNT (BEAKER) (test code = 670) LYMPHOCYTES ABSOLUTE 0.64 K/ L 1.18-3.74 L COUNT (BEAKER) (test code = 414) MONOCYTES ABSOLUTE 0.11 K/ L 0.24-0.36 L COUNT (BEAKER) (test code = 415) EOSINOPHILS ABSOLUTE 0.00 K/ L 0.04-0.36 L COUNT (BEAKER) (test code = 416) BASOPHILS ABSOLUTE 0.01 K/ L 0.01-0.08 COUNT (BEAKER) (test code = 417) IMMATURE 0.30 % 0.00-1.00 GRANULOCYTES-RELATIVE PERCENT (BEAKER) (test code = 2801) [id number] 22:12:55 Test Item Value Reference Range Interpretation Comments PHOSPHORUS (BEAKER) (test code = 3.4 mg/dL 2.3-4.7 604) Acid Washer Operator ID - [id number] 22:12:54 Test Item Value Reference Range Interpretation Comments MAGNESIUM (BEAKER) (test code = 1.6 mg/dL 1.6-2.6 627) Acid Washer Operator ID - ADMINBASIC METABOLIC [id number] 21:35:51 Test Item Value Reference Range Interpretation Comments SODIUM (BEAKER) 138 meq/L 136-145 (test code = 381) POTASSIUM 4.0 meq/L 3.5-5.1 (BEAKER) (test code = 379) CHLORIDE (BEAKER) 102 meq/L 98-107 (test code = 382) CO2 (BEAKER) 25 meq/L 22-29 (test code = 355) BLOOD UREA 7 mg/dL 7-21 NITROGEN (BEAKER) (test code = 354) CREATININE 0.65 mg/dL 0.57-1.25 (BEAKER) (test code = 358) GLUCOSE RANDOM 110 mg/dL 70-105 H (BEAKER) (test code = 652) CALCIUM (BEAKER) 9.2 mg/dL 8.4-10.2 (test code = 697) EGFR (BEAKER) 101 Interpretatio n of eGFR (test code = mL/min/1.73 values Stage De scription 1092) sq m Result G1 Geraldine l or high >=90 G2 Mildly decreased 60-89 G3a Mildl y to moderately 45-5 9 G3b Moderately to s everely 30-44 G4 Severl y decreased 15-29 G5 Kidney failure <15Reported eGF R is based on the CKD-EPI 2021 equation that d oes not use a race coefficientEsti mated GFR is not as accur ate as Creatinine Kenzie edgar in predicting glom erular filtration rate . Estimated GFR is not appl icable for dialysis patien ts Acid Washer Operator ID - BCCBC W/PLT COUNT & AUTO [id number] 21:29:35 Test Item Value Reference Range Interpretation Comments WHITE BLOOD CELL COUNT (BEAKER) 10.6 K/ L 3.5-10.5 H (test code = 775) RED BLOOD CELL COUNT (BEAKER) 4.22 M/ L 3.93-5.22 (test code = 761) HEMOGLOBIN (BEAKER) (test code = 10.5 GM/DL 11.2-15.7 L 410) HEMATOCRIT (BEAKER) (test code = 33.8 % 34.1-44.9 L 411) MEAN CORPUSCULAR VOLUME (BEAKER) 80 fL 79-95 (test code = 753) MEAN CORPUSCULAR HEMOGLOBIN 24.9 pg 25.6-32.2 L (BEAKER) (test code = 751) MEAN CORPUSCULAR HEMOGLOBIN CONC 31.1 GM/DL 32.2-35.5 L (BEAKER) (test code = 752) RED CELL DISTRIBUTION WIDTH 13.8 % 11.7-14.4 (BEAKER) (test code = 412) PLATELET COUNT (BEAKER) (test 318 K/CU MM 150-450 code = 756) MEAN PLATELET VOLUME (BEAKER) 9.7 fL 9.4-12.3 (test code = 754) NUCLEATED RED BLOOD CELLS 0 /100 WBC 0-0 (BEAKER) (test code = 413) NEUTROPHILS RELATIVE PERCENT 91 % (BEAKER) (test code = 429) LYMPHOCYTES RELATIVE PERCENT 7 % (BEAKER) (test code = 430) MONOCYTES RELATIVE PERCENT 2 % (BEAKER) (test code = 431) EOSINOPHILS RELATIVE PERCENT 0 % (BEAKER) (test code = 432) BASOPHILS RELATIVE PERCENT 0 % (BEAKER) (test code = 437) NEUTROPHILS ABSOLUTE COUNT 9.70 K/ L 1.56-6.13 H (BEAKER) (test code = 670) LYMPHOCYTES ABSOLUTE COUNT 0.69 K/ L 1.18-3.74 L (BEAKER) (test code = 414) MONOCYTES ABSOLUTE COUNT (BEAKER) 0.17 K/ L 0.24-0.36 L (test code = 415) EOSINOPHILS ABSOLUTE COUNT 0.01 K/ L 0.04-0.36 L (BEAKER) (test code = 416) BASOPHILS ABSOLUTE COUNT (BEAKER) 0.02 K/ L 0.01-0.08 (test code = 417) IMMATURE GRANULOCYTES-RELATIVE 0.50 % 0.00-1.00 PERCENT (BEAKER) (test code = 2801) CBC W/PLT COUNT & AUTO [id number] 09:10:45 Test Item Value Reference Range Interpretation Comments WHITE BLOOD CELL COUNT (BEAKER) 7.6 K/ L 3.5-10.5 (test code = 775) RED BLOOD CELL COUNT (BEAKER) 4.31 M/ L 3.93-5.22 (test code = 761) HEMOGLOBIN (BEAKER) (test code = 10.7 GM/DL 11.2-15.7 L 410) HEMATOCRIT (BEAKER) (test code = 34.8 % 34.1-44.9 411) MEAN CORPUSCULAR VOLUME (BEAKER) 81 fL 79-95 (test code = 753) MEAN CORPUSCULAR HEMOGLOBIN 24.8 pg 25.6-32.2 L (BEAKER) (test code = 751) MEAN CORPUSCULAR HEMOGLOBIN CONC 30.7 GM/DL 32.2-35.5 L (BEAKER) (test code = 752) RED CELL DISTRIBUTION WIDTH 13.9 % 11.7-14.4 (BEAKER) (test code = 412) PLATELET COUNT (BEAKER) (test 274 K/CU MM 150-450 code = 756) MEAN PLATELET VOLUME (BEAKER) 10.1 fL 9.4-12.3 (test code = 754) NUCLEATED RED BLOOD CELLS 0 /100 WBC 0-0 (BEAKER) (test code = 413) NEUTROPHILS RELATIVE PERCENT 74 % (BEAKER) (test code = 429) LYMPHOCYTES RELATIVE PERCENT 16 % (BEAKER) (test code = 430) MONOCYTES RELATIVE PERCENT 8 % (BEAKER) (test code = 431) EOSINOPHILS RELATIVE PERCENT 2 % (BEAKER) (test code = 432) BASOPHILS RELATIVE PERCENT 0 % (BEAKER) (test code = 437) NEUTROPHILS ABSOLUTE COUNT 5.64 K/ L 1.56-6.13 (BEAKER) (test code = 670) LYMPHOCYTES ABSOLUTE COUNT 1.19 K/ L 1.18-3.74 (BEAKER) (test code = 414) MONOCYTES ABSOLUTE COUNT (BEAKER) 0.60 K/ L 0.24-0.36 H (test code = 415) EOSINOPHILS ABSOLUTE COUNT 0.13 K/ L 0.04-0.36 (BEAKER) (test code = 416) BASOPHILS ABSOLUTE COUNT (BEAKER) 0.02 K/ L 0.01-0.08 (test code = 417) IMMATURE GRANULOCYTES-RELATIVE 0.30 % 0.00-1.00 PERCENT (BEAKER) (test code = 2801) COMPREHENSIVE METABOLIC [id number] 06:45:40 Test Item Value Reference Range Interpretation Comments TOTAL PROTEIN 7.3 gm/dL 6.0-8.3 Specimen sligh tly (BEAKER) (test hemolyzed code = 770) ALBUMIN (BEAKER) 3.7 g/dL 3.5-5.0 Specimen sl ightly (test code = 1145) hemolyzed ALKALINE 116 U/L 40-150 PHOSPHATASE (BEAKER) (test code = 346) BILIRUBIN TOTAL 0.6 mg/dL 0.2-1.2 Specimen sli ghtly (BEAKER) (test hemolyzed code = 377) SODIUM (BEAKER) 137 meq/L 136-145 (test code = 381) POTASSIUM (BEAKER) 4.2 meq/L 3.5-5.1 Specimen slightly (test code = 379) hemolyzed CHLORIDE (BEAKER) 104 meq/L 98-107 (test code = 382) CO2 (BEAKER) (test 16 meq/L 22-29 L code = 355) BLOOD UREA 9 mg/dL 7-21 NITROGEN (BEAKER) (test code = 354) CREATININE 0.61 mg/dL 0.57-1.25 Specimen slight ly (BEAKER) (test hemolyzed code = 358) GLUCOSE RANDOM 55 mg/dL 70-105 L (BEAKER) (test code = 652) CALCIUM (BEAKER) 8.8 mg/dL 8.4-10.2 (test code = 697) AST (SGOT) 21 U/L 5-34 Specimen slight ly (BEAKER) (test hemolyzed code = 353) ALT (SGPT) 15 U/L 6-55 Specimen slight ly (BEAKER) (test hemolyzed code = 347) EGFR (BEAKER) 103 Interpretatio n of eGFR (test code = 1092) mL/min/1.[address] age Description sq m Result G1 Geraldine l or high >=90 G2 Mildly decreased 60-89 G3a Mildl y to moderately 45-5 9 G3b Moderately to s everely 30-44 G4 Severl y decreased 15-29 G5 Kidney failure <15Reported eGF R is based on the CKD-EPI 2020 equation that d oes not use a race coefficientEsti mated GFR is not as accur ate as Creatinine Kenzie herve in predicting glom erular filtration rate . Estimated GFR is not appl icable for dialysis patien ts Acid Washer Operator ID - ADMINCOMPREHENSIVE METABOLIC [id number] 07:49:18 Test Item Value Reference Range Interpretation Comments TOTAL PROTEIN 7.7 gm/dL 6.0-8.3 (BEAKER) (test code = 770) ALBUMIN (BEAKER) 4.0 g/dL 3.5-5.0 (test code = 1145) ALKALINE 114 U/L 40-150 PHOSPHATASE (BEAKER) (test code = 346) BILIRUBIN TOTAL 0.5 mg/dL 0.2-1.2 (BEAKER) (test code = 377) SODIUM (BEAKER) 138 meq/L 136-145 (test code = 381) POTASSIUM (BEAKER) 3.8 meq/L 3.5-5.1 (test code = 379) CHLORIDE (BEAKER) 104 meq/L 98-107 (test code = 382) CO2 (BEAKER) (test 22 meq/L 22-29 code = 355) BLOOD UREA 9 mg/dL 7-21 NITROGEN (BEAKER) (test code = 354) CREATININE 0.68 mg/dL 0.57-1.25 (BEAKER) (test code = 358) GLUCOSE RANDOM 92 mg/dL 70-105 (BEAKER) (test code = 652) CALCIUM (BEAKER) 9.3 mg/dL 8.4-10.2 (test code = 697) AST (SGOT) 25 U/L 5-34 (BEAKER) (test code = 353) ALT (SGPT) 16 U/L 6-55 (BEAKER) (test code = 347) EGFR (BEAKER) 100 Interpretatio n of eGFR (test code = 1092) mL/min/1.[address] age Description sq m Result G1 Geraldine l or high >=90 G2 Mildly decreased 60-89 G3a Mildl y to moderately 45-5 9 G3b Moderately to s everely 30-44 G4 Severl y decreased 15-29 G5 Kidney failure <15Reported eGF R is based on the CKD-EPI 2020 equation that d oes not use a race coefficientEsti mated GFR is not as accur ate as Creatinine Kenzie herve in predicting glom erular filtration rate . Estimated GFR is not appl icable for dialysis patien ts Acid Washer Operator ID - ADMINC-REACTIVE [id number] 07:49:18 Test Item Value Reference Range Interpretation Comments C-REACTIVE PROTEIN (BEAKER) (test 12.81 mg/dL 0.00-0.50 H code = 676) Acid Washer Operator ID - ADMINLACTIC ACID, [id number] 07:03:34 Test Item Value Reference Range Interpretation Comments LACTATE BLOOD VENOUS 0.63 mmol/L 0.50-2.00 Specime n slightly (2) (BEAKER) (test hemolyzed code = 2872) Acid Washer Operator ID - [id number] 06:47:06 Test Item Value Reference Range Interpretation Comments PROCALCITONIN (BEAKER) (test code = < ng/mL <0.05 3036) SEPSIS RISK (ng/mL)Low: 0.05-0.50Intermediate: 0.51-2.00High: >=2.01CBC W/PLT COUNT & AUTO [id number] 06:23:42 Test Item Value Reference Range Interpretation Comments WHITE BLOOD CELL COUNT (BEAKER) 9.1 K/ L 3.5-10.5 (test code = 775) RED BLOOD CELL COUNT (BEAKER) 4.19 M/ L 3.93-5.22 (test code = 761) HEMOGLOBIN (BEAKER) (test code = 10.3 GM/DL 11.2-15.7 L 410) HEMATOCRIT (BEAKER) (test code = 33.8 % 34.1-44.9 L 411) MEAN CORPUSCULAR VOLUME (BEAKER) 81 fL 79-95 (test code = 753) MEAN CORPUSCULAR HEMOGLOBIN 24.6 pg 25.6-32.2 L (BEAKER) (test code = 751) MEAN CORPUSCULAR HEMOGLOBIN CONC 30.5 GM/DL 32.2-35.5 L (BEAKER) (test code = 752) RED CELL DISTRIBUTION WIDTH 14.3 % 11.7-14.4 (BEAKER) (test code = 412) PLATELET COUNT (BEAKER) (test 298 K/CU MM 150-450 code = 756) MEAN PLATELET VOLUME (BEAKER) 10.5 fL 9.4-12.3 (test code = 754) NUCLEATED RED BLOOD CELLS 0 /100 WBC 0-0 (BEAKER) (test code = 413) NEUTROPHILS RELATIVE PERCENT 78 % (BEAKER) (test code = 429) LYMPHOCYTES RELATIVE PERCENT 13 % (BEAKER) (test code = 430) MONOCYTES RELATIVE PERCENT 8 % (BEAKER) (test code = 431) EOSINOPHILS RELATIVE PERCENT 1 % (BEAKER) (test code = 432) BASOPHILS RELATIVE PERCENT 0 % (BEAKER) (test code = 437) NEUTROPHILS ABSOLUTE COUNT 7.08 K/ L 1.56-6.13 H (BEAKER) (test code = 670) LYMPHOCYTES ABSOLUTE COUNT 1.21 K/ L 1.18-3.74 (BEAKER) (test code = 414) MONOCYTES ABSOLUTE COUNT (BEAKER) 0.68 K/ L 0.24-0.36 H (test code = 415) EOSINOPHILS ABSOLUTE COUNT 0.09 K/ L 0.04-0.36 (BEAKER) (test code = 416) BASOPHILS ABSOLUTE COUNT (BEAKER) 0.02 K/ L 0.01-0.08 (test code = 417) IMMATURE GRANULOCYTES-RELATIVE 0.40 % 0.00-1.00 PERCENT (BEAKER) (test code = 2801) PROTHROMBIN [id number] 06:22:24 Test Item Value Reference Range Interpretation Comments PROTIME (BEAKER) (test code = 13.5 seconds 11.9-14.2 759) INR (BEAKER) (test code = 370) 1.02 <=5.90 RECOMMENDED COUMADIN/WARFARIN INR THERAPY RANGESSTANDARD DOSE: 2.0 - 3.0 Includes: PROPHYLAXIS for venous thrombosis, systemic embolization; TREATMENT for venous thrombosis and/or pulmonary embolus.HIGH RISK: Target INR is 2.5-3.5 for patients with mechanical heart valves.Fecal [id number] 18:40:00 Test Item Value Reference Range Interpretation Comments Fecal calprotectin (test 327.98 See_Comment H [A utomated message] code = 96853-0) The system w [facility] generated this result transmitted ref erence range: <15.6-12 0 mg/kg. The refe rence range was not u sed to interpret this result as normal/abnor mal. Lab Interpretation (test Abnormal code = 00005-8) [facility] [id number] 18:40:00 Test Item Value Reference Range Interpretation Comments Fecal calprotectin (test 327.98 See_Comment H [A utomated message] code = 98606-6) The system w [facility] generated this result transmitted ref erence range: <15.6-12 0 mg/kg. The refe rence range was not u sed to interpret this result as normal/abnor mal. Lab Interpretation (test Abnormal code = 57152-0) [facility] [id number] 17:52:00 Test Item Value Reference Interpretation Comments Range Anaerobic culture Bacteroides A Specimen isolate ([facility]The [facility] code = 07114-7) performance Source: [facility] Site: this assay on this Abdominal wall isolatewere validated by the Microbiology Laboratory at [facility]. This source has not been approved by the U.S. Food and Drug Administration. The results are not intended to be used as the sole means for clinical diagnosis or patient management. The Microbiology Laboratory is authorized under the clinical Laboratory Improvement Amendments of 1988 (CLIA-88) to perform high complexity testing. Lab Abnormal Interpretation (test code = 96597-3) [facility] [id number] 17:52:00 Test Item Value Reference Interpretation Comments Range Anaerobic culture Bacteroides A Specimen isolate ([facility] code = 11547-4) performance Source: [facility] Site: this assay on this Abdominal wall isolatewere validated by the Microbiology Laboratory at [facility]. This source has not been approved by the U.S. Food and Drug Administration. The results are not intended to be used as the sole means for clinical diagnosis or patient management. The Microbiology Laboratory is authorized under the clinical Laboratory Improvement Amendments of 1988 (CLIA-88) to perform high complexity testing. Lab Abnormal Interpretation (test code = 63012-9) [facility] [Presence] in Respiratory specimen by TOBIAS with probe [id number] 17:55:21 Test Item Value Reference Range Interpretation Comments SARS-CoV-2 (COVID-19) RNA Not detected [Presence] in Respiratory specimen by TOBIAS with probe detection (test code = 86522-6) Whether patient is employed in a Unknown healthcare setting (test code = 55052-3) Whether the patient has symptoms Unknown related to condition of interest (test code = 18100-9) Whether the patient was Unknown hospitalized for condition of interest (test code = 16135-2) Whether the patient was admitted Unknown to intensive care unit (ICU) for condition of interest (test code = 32757-2) Whether patient resides in a Unknown congregate care setting (test code = 87038-7) status (test code = Unknown 25333-1) Date and time of symptom onset Unknown (test code = 93504-6) [facility] [Presence] in Respiratory specimen by TOBIAS with probe [id number] 06:59:25 Test Item Value Reference Range Interpretation Comments SARS-CoV-2 (COVID-19) RNA Not detected [Presence] in Respiratory specimen by TOBIAS with probe detection (test code = 72562-3) Whether patient is employed in a Unknown healthcare setting (test code = 26970-7) Whether the patient has symptoms Unknown related to condition of interest (test code = 75115-0) Whether the patient was Unknown hospitalized for condition of interest (test code = 21333-9) Whether the patient was admitted Unknown to intensive care unit (ICU) for condition of interest (test code = 25066-1) Whether patient resides in a Unknown congregate care setting (test code = 76731-2) status (test code = Unknown 17484-3) Date and time of symptom onset Unknown (test code = 21174-6) [facility] [id number] 07:12:00 Test Item Value Reference Range Interpretation [...] code = 248) STOOL CULTURE + SHIGA [id number] 12:14:00 Test Item Value Reference Range Interpretation Comments CULTURE (BEAKER) No Salmonella, Shigella (test code = 1095) or Campylobacter isolated CMV PCR, [id number] 14:49:00 Test Item Value Reference Range Interpretation Comments CMV VIRAL LOAD - Negative or below the NEGATIVE (SUSANAKER) (test linear range of the code = [...] and its performance characteristics determined by the [facility] Pathol ogy Department, Section of Molecular Pathology. It has not been cleared or approved by the U.S. Foodand Drug Administration (FDA), since FDA approval is not required for clinical use of the test. Validation was done as required by The Clinical Laboratory Improvement Amendments of 1988.CT, ABDOMEN - PELVIS, [id number] 09:40:00Reason for exam:->UC with strictureFINAL REPORT INDICATION:Abdominal [...] No stricture, fistula, or abscess. Cholelithiasis. Signed: Zo Morin MDReport Verified Date/Time: 03/24/2019 09:40:40 Reading Location: [facility] C013Y CT Body Reading Room L PATH [id number] 09:03:00 Test Item Value Reference Range Interpretation Comments PATHOGEN EXAM CHARGED (BEAKER) (test Done code = 2381) [id number] 06:09:00 Test Item Value Reference Range Interpretation Comments PHOSPHORUS (BEAKER) (test code = 3.1 mg/dL 2.3-4.7 604) [id number] 06:09:00 Test Item Value Reference Range Interpretation Comments MAGNESIUM (BEAKER) (test code = 2.1 mg/dL 1.6-2.6 627) BASIC METABOLIC [id number] 06:09:00 Test Item Value Reference Range Interpretation [...] APPLICABLE FOR DIALYSIS PATIEN TS. HEPATIC FUNCTION [id number] 06:09:00 Test Item Value Reference Range Interpretation [...] 6-55 347) CBC W/PLT COUNT & AUTO [id number] 05:36:00 Test Item Value Reference Range Interpretation [...] (BEAKER) (test code = 2801) SHIGA TOXIN [id number] 15:16:00 Test Item Value Reference Range Interpretation Comments SHIGA TOXIN 1 (BEAKER) (test Not detected Not detected code = 2177) SHIGA TOXIN 2 (BEAKER) (test Not detected Not detected code = 2179) [id number] 05:53:00 Test Item Value Reference Range Interpretation Comments PHOSPHORUS (BEAKER) (test code = 2.7 mg/dL 2.3-4.7 604) [id number] 05:53:00 Test Item Value Reference Range Interpretation Comments MAGNESIUM (BEAKER) (test code = 2.1 mg/dL 1.6-2.6 627) BASIC METABOLIC [id number] 05:53:00 Test Item Value Reference Range Interpretation [...] APPLICABLE FOR DIALYSIS PATIEN TS. HEPATIC FUNCTION [id number] 05:53:00 Test Item Value Reference Range Interpretation [...] 6-55 347) CBC W/PLT COUNT & AUTO [id number] 05:08:00 Test Item Value Reference Range Interpretation [...] code = 2801) URINALYSIS W/ REFLEX URINE [id number] 21:50:00 Test Item Value Reference Range Interpretation [...] 520) SOURCE(BEAKER) (test code = 2795) C-REACTIVE [id number] 19:18:00 Test Item Value Reference Range Interpretation Comments C-REACTIVE PROTEIN (BEAKER) (test 20.33 mg/dL 0.00-0.50 H code = 676) [id number] 03:05:00 Test Item Value Reference Range Interpretation Comments MAGNESIUM (BEAKER) 2.0 mg/dL 1.6-2.6 Specimen slightly (test code = 627) hemolyzed [id number] 03:05:00 Test Item Value Reference Range Interpretation Comments PHOSPHORUS (BEAKER) 3.3 mg/dL 2.3-4.7 Specimen slightly (test code = 604) hemolyzed BASIC METABOLIC [id number] 03:05:00 Test Item Value Reference Range Interpretation [...] APPLICABLE FOR DIALYSIS PATIEN TS. HEPATIC FUNCTION [id number] 03:05:00 Test Item Value Reference Range Interpretation [...] 347) hemolyzed CBC W/PLT COUNT & AUTO [id number] 02:46:00 Test Item Value Reference Range Interpretation [...] % 0-1 PERCENT (BEAKER) (test code = 4247)
[2023-05-13 19:48] LABS: Absolute Lymphocytes (CBC) 3.8 K/uL (0.7-4.9); Hematocrit 33.8 % (36.0-45.0); Lymphocytes % 26.2 % (15.3-44.8); MCV 78.6 fL (80-100); MPV 7.9 fL (7.6-11.3); Platelets 492 thou/uL (152-406)
[2023-05-13 19:51] LABS: Specific Gravity > 1.030 (1.005-1.030); Urine Bacteria None Seen /HPF (<20); Urine Bilirubin NEGATIVE (Negative); Urine Blood Negative (Negative); Urine Clarity Clear (Clear); Urine Color Light-Yellow (Yellow); Urine Glucose NEGATIVE (Negative); Urine Mucus Slight /HPF (None Seen); Urine Protein TRACE (Negative); Urine RBC None Seen /HPF (None Seen); Urine Urobilinogen 1+ (Normal); Urine pH 5.5 (5.0-7.0)
[2023-05-13 20:13] LABS: Albumin 3.6 g/dL (3.4-5.0); Bilirubin Total 0.2 mg/dL (0.2-1.0); Potassium 3.9 mEq/L (3.5-5.1); Protein, Total 8.3 g/dL (6.4-8.2)
[2023-05-13] MEDS ORDERED: NA CHLORIDE 0.9% 500 ML ONE (23:48)
[2023-05-13] MEDS ORDERED: FENTANYL CITR 100 MCG/2 ML ONE (23:48)
--- NOTE | 2023-05-14 00:21 | EDPHYS ---
Physician Documentation [facility] Name: Stephanie Doshi Age: 58 yrs Sex: Female : 1965 Arrival Date: 05/13/2023 Time: 18:01 Bed 11 Private MD: ED Physician Marc Thibodeaux HPI: 05/13 19:10 This 58 yrs old Female presents to ER via Ambulatory with complaints of ABD INFECTION. cp 19:10 The patient presents with abdominal pain. cp 19:10 Onset: The symptoms/episode began/occurred increased over past several days. The cp symptoms do not radiate. Associated signs and symptoms: Pertinent negatives: blood in stools, fever. 19:10 Patient is a 58-year-old female with a past medical history significant for Crohn's and cp ulcerative colitis. Patient presents to the emergency department with concern for infection post partial hemicolectomy that was performed at [facility] on 05/08/2023. Patient reports noticing purulent drainage around stoma and complains of increased pain. Historical: - Allergies: 19:05 Codeine; hb 19:05 HYDROCODONE (Hives, itch); hb 19:05 Levaquin; hb - PMHx: 19:05 Crohn's; ulcerative colitis; hb - PSHx: 19:05 Ileostomy (ulcerative colitis); hb - Immunization history:: Adult Immunizations up to date. - Social history:: Smoking status: Patient denies any tobacco usage or history of. ROS: 19:15 Constitutional: Negative for body aches, chills, fever, poor PO intake, cp 19:15 Eyes: Negative for injury, pain, redness, and discharge, cp 19:15 ENT: Negative for drainage from ear(s), ear pain, sore throat, difficulty swallowing, difficulty handling secretions, 19:15 Cardiovascular: Negative for chest pain, edema, palpitations, 19:15 Respiratory: Negative for cough, shortness of breath, wheezing, 19:15 Abdomen/GI: Positive for abdominal pain, Negative for vomiting, diarrhea, constipation, 19:15 Neuro: Negative for altered mental status, dizziness, headache, numbness, weakness, 19:17 All other systems are negative, cp Exam: 19:20 Constitutional: The patient appears in no acute distress, alert, awake, cp non-diaphoretic, non-toxic, well developed, well nourished, 19:20 Head/Face: Normocephalic, atraumatic. cp 19:20 Eyes: Periorbital structures: appear normal, Conjunctiva: normal, no exudate, no injection, Sclera: no appreciated abnormality, Lids and lashes: appear normal, bilaterally, 19:20 ENT: External ear(s): are unremarkable, Nose: is normal, Mouth: Lips: moist, Oral mucosa: pink and intact, moist, Posterior pharynx: is normal, airway is patent, no erythema, no exudate, 19:20 Chest/axilla: Inspection: normal, 19:20 Cardiovascular: Rate: normal, Rhythm: regular, 19:20 Respiratory: the patient does not display signs of respiratory distress, Respirations: normal, no use of accessory muscles, no retractions, labored breathing, is not present, Breath sounds: are clear throughout, no decreased breath sounds, no stridor, no wheezing, 19:20 Abdomen/GI: Inspection: Ileostomy noted right mid lower abdomen, the surrounding skin appears with some mild erythema. There is no purulent drainage observed and stool appears brown and without blood, Bowel sounds: active, all quadrants, Vital Signs: 19:03 BP 136 / 82; Pulse 89; Resp 16; Temp 97.4(TE); Pulse Ox 97% on R/A; Weight 65.77 kg; hb Height 5 ft. 2 in. ; Pain 8/10; 20:30 BP 148 / 78; Pulse 72; Resp 16; Pulse Ox 99% ; pf1 21:30 BP 141 / 89; Pulse 82; Resp 16; Pulse Ox 100% on R/A; pf1 22:30 BP 137 / 82; Pulse 76; Resp 14; Pulse Ox 99% on R/A; pf1 23:30 BP 150 / 68; Pulse 78; Resp 16; Pulse Ox 100% on R/A; pf1 05/14 00:30 BP 162 / 81; Pulse 68; Resp 16; Pulse Ox 99% on R/A; pf1 01:30 BP 133 / 86; Pulse 55; Resp 16; Pulse Ox 99% on R/A; Pain 4/10; pf1 02:30 BP 132 / 83; Pulse 62; Resp 16; Pulse Ox 100% on R/A; pf1 03:30 BP 145 / 79; Pulse 68; Resp 16; Pulse Ox 100% ; pf1 05/13 19:03 Body Mass Index 26.52 (65.77 kg, 157.48 cm) hb 05/13 19:03 Pain Scale: Adult hb 01:30 Pain Scale: Adult pf1 MDM: 05/13 19:09 Patient medically screened. cp 22:00 Differential diagnosis: abscess, cellulitis, sepsis. cp 05/14 00:15 Data reviewed: vital signs, nurses notes, lab test result(s), radiologic studies, CT cp scan. 00:15 Counseling: I had a detailed discussion with the patient and/or guardian regarding the cp historical points, exam findings, and any diagnostic results supporting the discharge/admit diagnosis, lab results, radiology results, the need to transfer to another facility, continuity of care. 05/13 19:03 Order name: CBC with Diff; Complete Time: 21:22 cp 05/13 21:22 Interpretation: Normal except: WBC 14.70; HGB 11.1; HCT 33.8; MCV 78.6; MCH 25.7; PLT cp 492; RDW 15.4; NEUT A 9.6. 05/13 19:03 Order name: CMP; Complete Time: 21:22 cp 05/14 01:41 Interpretation: Normal except: GLUC 107; BUN 27; GFR 89; TP 8.3; GLOB 4.7; A/G 0.8. cp 05/13 19:03 Order name: Lipase; Complete Time: 21:22 cp 05/13 19:03 Order name: Urinalysis w/ reflexes; Complete Time: 21:22 cp 05/14 01:41 Interpretation: Normal except: Urine SG > 1.030; UKET TRACE; UPROT TRACE; UUROB 1+. cp 05/14 00:33 Order name: Lactate w/ 2H reflex if indic. cp 05/14 00:33 Order name: Blood Culture Adult (2) cp 05/14 00:33 Order name: Blood Culture Adult (2) pf1 05/13 21:22 Order name: CT Abd/Pelvis - IV Contrast Only cp 05/13 19:03 Order name: IV Saline Lock; Complete Time: 19:37 cp 05/13 19:03 Order name: Labs collected and sent; Complete Time: 19:37 cp Administered Medications: 05/13 22:29 Drug: apply new colostomy bag 1 application Topical once Route: Topical; Site: abdomen; pf1 22:40 Drug: NS 0.9% IV 500 ml IV at bolus once Route: IV; Rate: bolus; Site: right pf1 antecubital; 23:10 Follow up: Response: No adverse reaction; Marked relief of symptoms pf1 23:10 Follow up: IV Status: Completed infusion; IV Intake: 500ml pf1 23:40 Drug: fentaNYL (PF) IVP 25 mcg IVP once Route: IVP; Site: right antecubital; pf1 05/14 00:21 Follow up: Response: No adverse reaction; Marked relief of symptoms; Pain is decreased; pf1 RASS: Alert and Calm (0) 01:30 Drug: Piperacillin-Tazobactam IVPB 3.375 grams IVPB once over 60 mins; (mix in NS 100 pf1 mL) Route: IVPB; Infused Over: 60 mins; Site: right antecubital; 01:44 Follow up: Response: No adverse reaction pf1 02:30 Follow up: Response: No adverse reaction; IV Status: Completed infusion; IV Intake: pf1 100ml 03:03 Drug: fentaNYL (PF) IVP 25 mcg IVP once Route: IVP; Site: right antecubital; pf1 03:30 Follow up: Response: No adverse reaction; Marked relief of symptoms; Pain is decreased; pf1 RASS: Alert and Calm (0) Disposition Summary: 05/14/23 00:21 Transfer Ordered Notes: Transfer Location: [facility] cp Reason: Higher level of care cp Condition: Stable cp Problem: new cp Symptoms: have improved cp Accepting Physician: DR Salas(05/14/23 03:39) pf1 Diagnosis - Intraabdominal abscess cp Forms: - Medication Reconciliation Form cp - SBAR form cp Addendum: 05/17/2023 08:47 Co-signature as Attending Physician, Marc Thibodeaux MD I reviewed the patient's care r t provided by the Advanced Practice Provider and agree with the diagnosis and treatment plan. Signatures: Dispatcher [employer] EDMS Aashish Jennings PA PA cp Baxter, Heather, RN RN Marc Thibodeaux MD MD rt Maria G Andersen RN RN pf1 Corrections: (The following items were deleted from the chart) 05/14 01:45 00:21 cp cp 03:39 01:45 Changela cp pf1 05/15 03:21 05/13 19:15 All other systems are negative, cp cp
--- NOTE | 2023-05-14 00:21 | ER ---
Nurse's Notes [facility] Name: Stephanie Doshi Age: 58 yrs Sex: Female : 1965 Arrival Date: 05/13/2023 Time: 18:01 Bed 11 Private MD: Diagnosis: Intraabdominal abscess Presentation: 05/13 19:03 Chief complaint: Had an ileostomy surgery 05/08, c/o skin breakdown around stoma today hb and worsening pain over last few days. Coronavirus screen: At this time, the client does not indicate any symptoms associated with coronavirus-19. Ebola Screen: No symptoms or risks identified at this time. Initial Sepsis Screen: Does the patient meet any 2 criteria? No. Patient's initial sepsis screen is negative. Does the patient have a suspected source of infection? No. Patient's initial sepsis screen is negative. Risk Assessment: Do you want to hurt yourself or someone else? Patient reports no desire to harm self or others. Onset of symptoms was May 13, 2023. 19:03 Method Of Arrival: Ambulatory hb 19:03 Acuity: RENÉ 3 hb Historical: - Allergies: 19:05 Codeine; hb 19:05 HYDROCODONE (Hives, itch); hb 19:05 Levaquin; hb - PMHx: 19:05 Crohn's; ulcerative colitis; hb - PSHx: 19:05 Ileostomy (ulcerative colitis); hb - Immunization history:: Adult Immunizations up to date. - Social history:: Smoking status: Patient denies any tobacco usage or history of. Screenin:15 [facility] ED Fall Risk Assessment (Adult) History of falling in the last 3 months, pf1 including since admission No falls in past 3 months (0 pts) Confusion or Disorientation No (0 pts) Intoxicated or Sedated No (0 pts) Impaired Gait No (0 pts) Mobility Assist Device Used No (0 pt) Altered Elimination Yes (1 pt) Score/Fall Risk Level 0 - 2 = Low Risk Oriented to surroundings, Maintained a safe environment, Educated pt \T\ family on fall prevention, incl call for assistance when getting out of bed, Assessed \T\ reinforced patient's understanding of fall precautions, Provided non-skid footwear, Hourly rounding (assess needs \T\ fall precautionary measures) done, Used ambulatory aids as needed (educated on \T\ assisted with), Used gait belt as appropriate. 20:15 Abuse screen: Denies threats or abuse. Nutritional screening: No deficits noted. pf1 Tuberculosis screening: No symptoms or risk factors identified. Assessment: 20:15 General: Appears in no apparent distress. comfortable, well groomed, well developed, pf1 Behavior is calm, cooperative, appropriate for age, quiet. 20:15 Pain: Complains of pain in skin around stoma with redness and irritation. Neuro: No pf1 deficits noted. Level of Consciousness is awake, alert, obeys commands, Oriented to person, place, time, situation. Cardiovascular: No deficits noted. Capillary refill < 3 seconds Patient's skin is warm and dry. Respiratory: No deficits noted. Airway is patent Respiratory effort is even, unlabored, Respiratory pattern is regular, symmetrical. GI: Ileostomy site is reddened. Ostomy appliance is not intact. C/O pus drainage from stoma Bowel sounds present X 4 quads. : No deficits noted. No signs and/or symptoms were reported regarding the genitourinary system. EENT: No deficits noted. No signs and/or symptoms were reported regarding the EENT system. Derm: redness with irritation to surrounding skin of ileostomy. 21:00 Reassessment: Patient appears in no apparent distress at this time. Patient and/or pf1 family updated on plan of care and expected duration. Pain level reassessed. Patient is alert, oriented x 3, equal unlabored respirations, skin warm/dry/pink. 22:00 Reassessment: Patient appears in no apparent distress at this time. Patient and/or pf1 family updated on plan of care and expected duration. Pain level reassessed. Patient is alert, oriented x 3, equal unlabored respirations, skin warm/dry/pink. 23:00 Reassessment: Patient appears in no apparent distress at this time. Patient and/or pf1 family updated on plan of care and expected duration. Pain level reassessed. Patient is alert, oriented x 3, equal unlabored respirations, skin warm/dry/pink. 05/14 00:00 Reassessment: Patient appears in no apparent distress at this time. Patient and/or pf1 family updated on plan of care and expected duration. Pain level reassessed. Patient is alert, oriented x 3, equal unlabored respirations, skin warm/dry/pink. 01:00 Reassessment: Patient appears in no apparent distress at this time. Patient and/or pf1 family updated on plan of care and expected duration. Pain level reassessed. Patient is alert, oriented x 3, equal unlabored respirations, skin warm/dry/pink. 02:00 Reassessment: Patient appears in no apparent distress at this time. Patient and/or pf1 family updated on plan of care and expected duration. Pain level reassessed. Patient is alert, oriented x 3, equal unlabored respirations, skin warm/dry/pink. 03:00 Reassessment: Patient appears in no apparent distress at this time. Patient and/or pf1 family updated on plan of care and expected duration. Pain level reassessed. Patient is alert, oriented x 3, equal unlabored respirations, skin warm/dry/pink. 03:20 Reassessment: colostomy bag coming off, reapplied another colostomy bag, patient pf1 tolerated well. 03:25 Reassessment: Patient report given to Abhinav [facility]. Patient being pf1 transferred to [facility]. Vital Signs: 05/13 19:03 BP 136 / 82; Pulse 89; Resp 16; Temp 97.4(TE); Pulse Ox 97% on R/A; Weight 65.77 kg; hb Height 5 ft. 2 in. ; Pain 8/10; 20:30 BP 148 / 78; Pulse 72; Resp 16; Pulse Ox 99% ; pf1 21:30 BP 141 / 89; Pulse 82; Resp 16; Pulse Ox 100% on R/A; pf1 22:30 BP 137 / 82; Pulse 76; Resp 14; Pulse Ox 99% on R/A; pf1 23:30 BP 150 / 68; Pulse 78; Resp 16; Pulse Ox 100% on R/A; pf1 05/14 00:30 BP 162 / 81; Pulse 68; Resp 16; Pulse Ox 99% on R/A; pf1 01:30 BP 133 / 86; Pulse 55; Resp 16; Pulse Ox 99% on R/A; Pain /10; pf1 02:30 BP 132 / 83; Pulse 62; Resp 16; Pulse Ox 100% on R/A; pf1 03:30 BP 145 / 79; Pulse 68; Resp 16; Pulse Ox 100% ; pf1 05/13 19:03 Body Mass Index 26.52 (65.77 kg, 157.48 cm) hb 05/13 19:03 Pain Scale: Adult hb 01:30 Pain Scale: Adult pf1 ED Course: 05/13 18:06 Patient arrived in ED. mg5 18:19 Aashish Jennings PA is PHCP. cp 18:19 Castillo Frances MD is Attending Physician. cp 19:04 Marc Thibodeaux MD is Attending Physician. cp 19:05 Triage completed. hb 19:05 Arm band placed on. hb 19:37 CBC with Diff Sent. bc6 19:37 CMP Sent. bc6 19:37 Lipase Sent. bc6 19:38 Urinalysis w/ reflexes Sent. bc6 19:38 Inserted saline lock: 20 gauge in right antecubital area, using aseptic technique. bc6 Blood collected. 20:15 Patient has correct armband on for positive identification. Placed in gown. Bed in low pf1 position. Call light in reach. 22:58 CT Abd/Pelvis - IV Contrast Only In Process Unspecified. EDMS 05/14 00:25 Initiated transfer with Saloni at [facility]. rv1 01:13 Maria G Andersen, RN is Primary Nurse. pf1 01:21 Attempted to call [facility] transfer center for update on transfer, no answer. rv1 01:30 Blood Culture Adult (2) Sent. pf1 01:30 Blood Culture Adult (2) Sent. pf1 01:32 Lactate w/ 2H reflex if indic. Sent. pf1 01:44 Blood Culture Adult (2) Sent. pf1 01:[address] Salas to [facility] 2026. rv1 02:16 No provider procedures requiring assistance completed. Patient transferred, IV remains pf1 in place. 02:25 Called Connie with EMS for transfer truck, given 10-15 min ETA. rv1 03:30 Provided Education on: need for transfer. pf1 Administered Medications: 05/13 22:29 Drug: apply new colostomy bag 1 application Topical once Route: Topical; Site: abdomen; pf1 22:40 Drug: NS 0.9% IV 500 ml IV at bolus once Route: IV; Rate: bolus; Site: right pf1 antecubital; 23:10 Follow up: Response: No adverse reaction; Marked relief of symptoms pf1 23:10 Follow up: IV Status: Completed infusion; IV Intake: 500ml pf1 23:40 Drug: fentaNYL (PF) IVP 25 mcg IVP once Route: IVP; Site: right antecubital; pf1 05/14 00:21 Follow up: Response: No adverse reaction; Marked relief of symptoms; Pain is decreased; pf1 RASS: Alert and Calm (0) 01:30 Drug: Piperacillin-Tazobactam IVPB 3.375 grams IVPB once over 60 mins; (mix in NS 100 pf1 mL) Route: IVPB; Infused Over: 60 mins; Site: right antecubital; 01:44 Follow up: Response: No adverse reaction pf1 02:30 Follow up: Response: No adverse reaction; IV Status: Completed infusion; IV Intake: pf1 100ml 03:03 Drug: fentaNYL (PF) IVP 25 mcg IVP once Route: IVP; Site: right antecubital; pf1 03:30 Follow up: Response: No adverse reaction; Marked relief of symptoms; Pain is decreased; pf1 RASS: Alert and Calm (0) Medication: 03:30 VIS not applicable for this client. pf1 Intake: 05/13 23:10 IV: 500ml; Total: 500ml. pf1 05/14 02:30 IV: 100ml; Total: 600ml. pf1 Outcome: 00:21 ER care complete, transfer ordered by . cp 03:32 Transferred by ground EMS to [facility], pf1 03:32 Transferred Transfer form completed. X-rays sent w/ patient. Note: Patient report given to WOLF Molina at 0219 03:32 Condition: stable 03:32 Instructed on the need for transfer, Demonstrated understanding of instructions, 03:39 Patient left the ED. pf1 Signatures: Dispatcher [employer] EDMS Aashish Jennings PA PA cp Baxter, Heather, RN RN hb Finley, Pamala, RN RN pf1 Jennifer Mayo rv1 Mattie Gauthier6 Pastora Harris mg5 Corrections: (The following items were deleted from the chart) :05/13 20:15 GI: Ileostomy site is reddened. Ostomy appliance is not intact. Bowel pf1 sounds present X 4 quads. pf1
[2023-05-14] MEDS ORDERED: NA CHLORIDE 0.9% 100 ML ONE (00:39)
[2023-05-14] MEDS ORDERED: PIPERACIL/TAZO 3.375 GM VIAL IV ONE (00:39)
[2023-05-14] MEDS ORDERED: FENTANYL CITR 100 MCG/2 ML ONE (03:13)
[2023-05-14 03:43] VITALS: TEMP 97.4
[2023-05-14 03:55] VITALS: O2SAT 100
[2023-05-14 03:57] VITALS: BP 145/79
--- NOTE | 2023-05-15 13:36 | RAD REPORT ---
EXAM DESCRIPTION: CT - Abdomen Pelvis W Contrast - 05/14/2023 6:30 am CLINICAL HISTORY: 58 years Female, ABD PAIN TECHNIQUE: Helical CT axial images are obtained from the lung bases to the pubic symphysis with IV c ontrast. No oral contrast was administered. Multiplanar reconstruction. This exam was performed accor ding to our departmental dose-optimization program, which includes automated exposure control, adjust ment of the mA and/or kV according to patient size and/or use of iterative reconstruction technique. COMPARISON: 05/06/2023 FINDINGS: LUNG BASES: No basilar consolidation or effusions. LIVER: Normal in size. Normal attenuation. No focal masses. HEPATOBILIARY: Cholelithiasis and biliary sludge. No intra- or extrahepatic ductal dilatation. SPLEEN: Normal size. PANCREAS: Normal size and contour. No focal mass. ADRENAL GLANDS: Normal size. No adrenal masses. KIDNEYS: Bilateral kidneys are normal in size without obstructing calculi or hydronephrosis. No nep hrolithiasis. No significant cysts are present. No focal solid mass. BOWEL AND MESENTERY: Right lower quadrant ileostomy. Status post partial left hemicolectomy. Interval decrease size of abscess at the anastomotic suture line within the left lower quadrant now measuring 1.4 x 1.2 x 3.3 cm in greatest TV/AP/CC dimensions (previously 2.5 x 2.3 x 4.6 cm). There is postope rative change/scarring at the lateral margin of the subjacent colon.. There is a tiny focus of pneumo peritoneum within the left upper quadrant best seen on series 201 image 29. No small or large bowel d ilatation. No colonic diverticulosis. The appendix is not identified. No abnormal mesenteric lympha denopathy. No free fluid. RETROPERITONEUM: Normal caliber abdominal aorta without aneurysm. No abnormal retroperitoneal lymphad enopathy. PELVIS: Small and gas within the urinary bladder which may be iatrogenic. Superior to the right a spect of the uterine fundus is a mildly lobulated soft tissue density masslike lesion measuring 2.6 x 2.2 x 3.3 cm which in part may represent a pedunculated fibroid versus right adnexal mass; further c haracterization is limited. Remainder of the uterus is unremarkable. No left adnexal abnormality. ABDOMINAL WALL: Right lower quadrant ileostomy as described above. BONES: No suspicious osseous lytic or blastic lesions seen. IMPRESSION: 1. Status post partial left hemicolectomy with right lower quadrant ileostomy. 2. Interval decrease size of abscess at the anastomotic suture line within the left lower quadrant now measuring 1.4 x 1.2 x 3.3 cm (previously 2.5 x 2.3 x 4.6 cm). 3. Tiny focus of pneumoperitoneum within the left upper quadrant, of doubtful clinical significance . 4. Cholelithiasis and biliary sludge. 5. Superior to the right aspect of the uterine fundus is a mildly lobulated soft tissue density mas slike lesion measuring 2.6 x 2.2 x 3.3 cm which in part may represent a pedunculated fibroid versus r ight adnexal mass; further characterization is limited. Nonemergent pelvic ultrasound versus pre and postcontrast MRI pelvis is recommended. Electronically signed by: Mitch Bass MD 05/13/2023 11:24 PM CDT Due to temporary technical issues with the PACS/Fluency reporting system, reports are being signed by the in house radiologists without review as a courtesy to insure prompt reporting. The interpreting radiologist is fully responsible for the content of the report.
== END 2023-05-14 03:39 | disposition short-term general hospital (02) ==
LOC: ER 18:01
DX: T81.43XA Infection following a procedure, organ and space surgical site, initial encounter (principal); Z98.890 Other specified postprocedural states; Z88.1 Allergy status to other antibiotic agents; Z88.5 Allergy status to narcotic agent
CPT/HCPCS: 96365; 87040 ×2; 85025; 81001; 36415; 83605; 83690; 80053; 74177; 96375; 99285; Q9967; J2543; J3010 ×2; J7040

== ENCOUNTER 2023-05-28 11:39 | Emergency (ER) | payer BC ==
--- OUTSIDE RECORDS SUMMARY | 2023-05-28 11:46 | XMS REPORT | Continuity of Care Document ---
:1965 Author Organization [facility] t Address [address] [place] [address] [place] [id number] Care Team Providers Name Role Phone PCP, PATIENT DOES NOT HAVE A Primary Care Physician UnavailSATYA Johnson Attending Clinician Unavailable Amarilis Saini Attending Clinician [phone] [email or web address] Attending Clinician Unavailable ALKA THOMPSON Attending Clinician Unavailable Sola Salas MD Attending Clinician Mariza Kennedy MD Attending Clinician Alka Thompson MD Attending Clinician SOLA SALAS Attending Clinician Unavailable CROW HAIR Attending Clinician Unavailable CHASE MCKAY Attending Clinician Unavailable Chase Mckay MD Attending Clinician Briana Mcconnell MD Attending Clinician [phone] Kylah Ramachandran MD Attending Clinician Stan ALBRIGHT, Crow Attending Clinician Giovanny ALBRIGHT, Satya Attending Clinician NOEL BELTRAN Attending Clinician Unavailable Mony Diggs MD, Sumalachi Attending Clinician [phone] Nick ALBRIGHT, Yamilet Attending Clinician TREVA LOU Attending Clinician Unavailable Nurse, [facility] Attending Clinician Unavailable Unknown, Attending Attending Clinician Unavailable Carmelita ALBRIGHT, Zhanna Benitez Attending Clinician Elroy LOPEZ, Joy Attending Clinician Unavailable Niyah ALBRIGHT, Joy Ash Attending Clinician Marquez ALBRIGHT, Boris Encarnacion Attending Clinician Tyrone Mora Attending Clinician Sheikh JOSE RAMON, Stephanie Attending Clinician Elizabeth ALBRIGHT, Ariana Aguilar Attending Clinician [phone] Ogletree_C Attending Clinician Unavailable KAY BORDEN Attending Clinician Unavailable JEN NAJERA Attending Clinician Unavailable MD TARA BRIDGES Attending Clinician Unavailable Armstrong_B Attending Clinician Unavailable Calderon Swann Attending Clinician [phone] [email or web address] Admitting Clinician Unavailable SOLA SALAS Admitting Clinician Unavailable AFAQ, MUHAMMED GREYSON YOUNG Admitting Clinician Unavailable TYRONE MORA Admitting Clinician Unavailable Ogletree_C Admitting Clinician Unavailable TARA BRIDGES Admitting Clinician Unavailable MD STEVE FERRER Admitting Clinician Unavailable SUSAN GARNICA Admitting Clinician Unavailable LeifB Admitting Clinician Unavailable JOY VENEGAS Admitting Clinician Unavailable ZHANNA THORNE Admitting Clinician Unavailable Payers Payer Name Policy Type Policy Number Effective Date Expiration Date S ource BCBS OS [id number] 2016 00:00:00 POS/PPO/EPO BCBS [facility] - [id number] 2016 00:00:00 [place] [id number] 2016 00:00:00 [place] [id number] 2016 00:00:00 [place] Problems Condition Condition Condition Status Onset Resolution Last Treating Co mments Source Name Details Category Date Date Treatment Clinician Date Intra-abdo Intra-abdo Disease Recurre 2022-[address] [facility]isse nce [facility]29 [facility] abscess abscess [facility]: Medical 00 Center Crohn's Crohn's Disease Recurre 2022-[address] [...] Added automatic ally from request for surgery [id number] Ulcerative Ulcerative Disease Active Overview : Methodi colitis colitis 4-[address] 00:00: g of this Hospita 00 note l might be different from the original. Added automatic ally from request for surgery [id number] Ulcerative Ulcerative Disease Recurre [facility] colitis [...] HYDROCOD Allergy Active Itching [facility] -[facility] 00 Center HYDROCOD DRUG Active ITCHING Univers ONE INGREDI 01-07 ity of 00:00: [address] Branch Hydrocod Propensi Active Itching Unive rs one ty to 01-07 ity of adverse 00:00: [place] reaction 00 Medical s Branch Hydrocod Propensi Active Itching Metho di one ty to 01-07 st adverse 00:00: Hospita reaction 00 l s to drug Hydrocod Drug Active Itching [facility] Allergy 24 [facility] 00:[facility] 00 Center NO KNOWN Allergy Active [facility] ALLERGIE S Family History Family Member Diagnosis Comments Start Date Stop Date Source Natural father Hypertension [facility] Natural mother Diabetes type II [facility] Natural mother Hypertension [facility] Social History Social Habit Start Date Stop Date Quantity Comments Source Sexual orientation [facility] History of tobacco [facility] SDOH [facility] Non-Med Medical Center History SDOH [facility] Housing Places Medical Ce nter Lived Exposure to 2023-05-04 2023-05-[address] [facility] SARS-CoV-2 (event) 00:00:00 05:25:00 [facility] Alcohol intake 2023-05-14 2023-05-14 [facility]00 [facility] alcohol [facility] Center (finding) History of Social 2023-05-14 2023-05-[address] [facility] function 00:00:00 00:00:00 Medical Center History SDOH 2023-05-07 2023-05-[address] [facility] Transport Med 00:00:00 00:00:[address] History [facility] 2023-05-07 2023-05-[address] [facility] Housing Unable to 00:00:00 00:00:00 Medical Center Pay History [facility] 2023-05-07 2023-05-[address] [facility] Housing Homeless 00:00:00 00:00:00 Medical Center Last Year Cigarettes smoked 2022-03-02 2022-03-[address] current [facility] Cigarette 2022-03-02 2022-03-02 [facility] pack-years 00:00:00 00:00:00 Hospital Alcohol Comment 2022-02-11 2022-02-11 occasional- Methodis t 00:00:00 00:00:00 [facility] Tobacco use and 2019-03-22 2019-03-[address] [facility] exposure 00:00:00 00:00:00 tobacco non-user Medical Center History [facility] 2019-03-22 2019-03-[address] [facility] Alcohol Frequency 00:00:00 00:00:00 Medical Center History [facility] 2019-03-22 2019-03-[address] [facility] Alcohol Std Drinks 00:00:00 00:00:00 Medica l Center History [facility] 2019-03-22 2019-03-[address] [facility] Alcohol Binge 00:00:00 00:00:[address] Sex Assigned At [address] [facility] 00:00:00 00:00:00 Medical Center Smoking Status Start Date Stop Date Source Ex-smoker 2023-05-06 00:00:00 2023-05-06 [facility] 00:00:00 Medical Branch Occasional tobacco 2019-03-22 00:00:[address] [facility] Medical smoker Center Medications Ordered Filled Start Stop Current Ordering Indication Dosage Frequency Signature Comments Components Source Medication Medication Date Date Medication? Clinician (SIG) Name Name omeprazole 2022-07 Yes heartburn 20mg QD Take [address] (PRILOSEC) 0-30 capsule [facility] 20 MG 13:17: (20 mg Medical capsule 18 total) by Center mouth daily. ertapenem 2022-07 Yes 1g Q24H Inject [address] (INVanz) 1 0-28 intravenou Tricia es g in NS 100 00:00: sly daily. Medical mL (V2B) 00 [place] IV predniSONE 2022-07- Yes 40mg QD Take [address] (DELTASONE) 0-28 11-27 tablets Luke s 20 MG 00:00: 23:59 (40 mg Medical tablet 00 :00 total) by Center mouth daily for 30 days . predniSONE 2022-07- Yes 40mg QD Take [address] (DELTASONE) 0-28 11-27 tablets Luke s 20 MG 00:00: 23:59 (40 mg Medical tablet 00 :00 total) by Center mouth daily for 30 days . ertapenem 2022-07- No 1g Q24H Inject [address] (INVanz) 1 0-28 10-30 intravenou Swati kes g in NS 100 00:00: 00:00 sly daily. Medical mL (V2B) 00 :00 [facility] omeprazole 2022-07 Yes heartburn 20mg QD Take [address] (PRILOSEC) 0-27 by mouth [facility]ukes 20 MG 12:37: daily. Medical capsule 49 [place] sertraline 2022-07- No 25mg QD Take [address] (ZOLOFT) 25 0-27 10-27 by mouth Tricia es MG tablet 08:47: 00:00 daily. Medic al 24 :00 [place] azaTHIOprin 2022-07- No 50mg QD Take [address] e (IMURAN) 0-27 10-27 by mouth Luke s 50 mg 08:47: 00:00 daily. Medical tablet 24 :00 [place] sertraline 2022-07- No 25mg QD Take [address] (ZOLOFT) 25 0-27 10-27 by mouth Tricia es MG tablet 08:47: 00:00 daily. Medic al 24 :00 [place] azaTHIOprin 2022-07- No 50mg QD Take [address] e (IMURAN) 0-27 10-27 by mouth Luke s 50 mg 08:47: 00:00 daily. Medical tablet 24 :00 [place] celecoxib 2022-07- Yes 200mg Q.5D Take [address] (CeleBREX) 0-27 10-26 capsule [facility]ukes 200 MG 00:00: 23:59 (200 mg Medical capsule 00 :00 total) by Center mouth 2 (two) times daily . celecoxib 2022-07- Yes 200mg Q.5D Take [address] (CeleBREX) 0-27 10-26 capsule [facility]ukes 200 MG 00:00: 23:59 (200 mg Medical capsule 00 :00 total) by Center mouth 2 (two) times daily . gabapentin 2022-07- Yes 300mg Q.[id number] Take [address] (NEURONTIN) 0-27 11- [id number] capsule [facility]ukes 300 MG 00:00: 23:59 3D (300 mg Medical capsule 00 :00 total) by Center mouth 3 (three) times daily for 30 days. gabapentin 2022-07- Yes 300mg Q.[id number] Take [address] (NEURONTIN) 0-27 11- [id number] capsule [facility]ukes 300 MG 00:00: 23:59 3D (300 mg Medical capsule 00 :00 total) by Center mouth 3 (three) times daily for 30 days. traMADoL 2022-07- No 50mg Take [address] (ULTRAM) 50 0-27 11-06 tablet (50 L ukes mg tablet 00:00: 23:59 mg total) Me dical 00 :00 by mouth Center every 6 (six) hours as needed for up to 10 days. Max Daily Amount: 200 mg traMADoL 2022-07- Yes 50mg Take [address] (ULTRAM) 50 0-27 11-06 tablet (50 L ukes mg tablet 00:00: 23:59 mg total) Me dical 00 :00 by mouth Center every 6 (six) hours as needed for up to 10 days. Max Daily Amount: 200 mg Ringer's 2022-07- No 1000mL QD Inject [facility] solution,la 0-23 10-30 1,000 mLs Swati kes ctated 00:00: 00:00 intravenou Medi candido (lactated 00 :00 sly daily Cente r ringers, for 7 LR,) doses. Ringer's 2022-07- Yes 1000mL QD Inject [facility] solution,la 0-23 10-30 1,000 mLs Swati kes ctated 00:00: 23:59 intravenou Medi candido (lactated 00 :00 sly daily Cente r ivet, for 7 LR,) doses. sertraline 2022-07 Yes 50mg QD Take 1 [facility]I [facility] t (ZOLOFT) 50 0-15 tablet (50 Swati kes MG tablet 00:00: mg total) Med ical 00 by mouth Center daily. sertraline 2022-07 Yes 50mg QD Take 1 [...] UNDER THE Center SKIN EVERY 2 MONTHS ustekinumab 2022- No INJECT [address] (Stelara) 3-20 10-27 ML (90 MG Luke s 90 mg/mL 00:00: 00:00 TOTAL) Medica l Syrg 00 :00 UNDER THE Center SKIN EVERY 2 MONTHS traMADoL 2021-07 [place] [id number] 50mg Q6H Take 1 Metho di (ULTRAM) 50 2-22 12-22 tablet (50 s t mg tablet 15:20: 00:00 mg total) Ho spita 12 :00 by mouth l every 6 (six) hours as needed for moderate pain .acute pain. traMADoL 2021-07 [place] [id number] 50mg Q6H Take 1 Metho di (ULTRAM) 50 2-22 12-22 tablet (50 s t mg tablet 15:20: 00:00 mg total) Ho spita 12 :00 by mouth l every 6 (six) hours as needed for moderate pain .acute pain. traMADoL 2021-07- [place] [id number] 50mg Q6H Take 1 Metho di (ULTRAM) [...] l day as needed. acetaminoph 2021-07 No [id number] 1{tbl} Q6H Take 1 Methodi en-codeine 08-[address] (TYLENOL 12:38: 00:00 mouth Hospita WITH 02 :00 every 6 l CODEINE #3) (six) 300-30 mg hours as per tablet needed for severe pain .acute pain. methocarbam 2021-07 No 500mg Q.[id number] Take 1 Methodi oL 08-[id number] (ROBAXIN) 12:38: 00:00 3D (500 [...] for nausea or vomiting. acetaminoph 2021-07 No [id number] 1{tbl} Q6H Take 1 Methodi en-codeine 08-[address] (TYLENOL 12:38: 00:00 mouth Hospita WITH 02 :00 every 6 l CODEINE #3) (six) 300-30 mg hours as per tablet needed for severe pain .acute pain. methocarbam 2021-07 No 500mg Q.[id number] Take 1 Methodi oL 08-[id number] (ROBAXIN) 12:38: 00:00 3D (500 mg [facility] 500 MG 02 :00 total) by l tablet mouth 3 (three) times a day. ondansetron 2021-07- No 4mg Q8H Take 1 Met hodi ODT 08-18 tablet (4 st (ZOFRAN-ODT 12:38: 00:00 mg total) Hospita ) 4 MG 02 :00 by mouth l disintegrat every 8 ing tablet (eight) hours as needed for nausea or vomiting. [place]aminoph 2021-07 [place] [id number] 1{tbl} Q6H Take 1 Methodi en-codeine 08-[address] (TYLENOL 12:38: 00:00 mouth Hospita WITH 02 :00 every 6 l CODEINE #3) (six) 300-30 mg hours as per tablet needed for severe pain .acute pain. methocarbam 2021-07 500mg Q.[id number] Take 1 Methodi oL 08-[id number] (ROBAXIN) 12:38: 00:00 3D (500 mg [facility] 500 MG 02 :00 total) by l tablet mouth 3 (three) times a day. ondansetron 2021-07 4mg Q8H Take 1 Met hodi ODT [...] 40mg QD Take 1 Met hodi e 08-18- tablet (40 st (PROTONIX) 00:00: 05:59 mg total) H ospita 40 MG EC 00 :00 by mouth l tablet daily for 30 days. pantoprazol 2021-07 No 40mg QD Take 1 Met hodi e 08-18- tablet (40 st (PROTONIX) 00:00: 05:59 mg total) H ospita 40 MG EC 00 :00 by mouth l tablet daily for 30 days. potassium 2021-07 Yes 8meq QD Take 1 Method i chloride 01 tablet (8 st (KLOR-CON) 00:00: mEq total) [...] l 50 mL IVPB daily. ertapenem 1 2021-2021- No 1g Q24H Infuse 1 g Methodi g in sodium 03-[address] chloride 00:00: 00:00 venous Hospit a 0.9 % MBP 00 :00 catheter l 50 mL IVPB daily. ertapenem 1 2021- 202- No 1g Q24H Infuse 1 g Methodi [...] 00:00: 00:00 order. Hospita 00 : l TPN FOR 2021- No See most Metho di DISCHARGE 03-[address] 00:00: 00:00 order. Hospita 00 :00 l sertraline Yes 50mg QD Take 50 mg M ethodi (ZOLOFT) 50 5-[address] MG tablet 00:00: daily. Hospit a 00 l sertraline Yes 50mg QD Take 50 mg M ethodi (ZOLOFT) 50 5-[address] MG tablet 00:00: daily. Hospit a 00 l sertraline Yes 50mg QD Take 50 mg M ethodi (ZOLOFT) 50 5-[address] MG tablet 00:00: daily. Hospit a 00 l gabapentin 2022- No 300mg Q.[id number] Take 1 Methodi (NEURONTIN) 10-28- [id number] capsule st 300 mg 00:00: 04:59 3D (300 mg Hospita capsule 00 :00 total) by l mouth 3 (three) times a day. gabapentin 2022- No 300mg Q.[id number] Take 1 Methodi (NEURONTIN) 10-28- [id number] capsule st 300 mg 00:00: 04:59 3D (300 mg Hospita capsule 00 :00 total) by l mouth 3 (three) times a day. gabapentin 2022- No 300mg Q.[id number] Take 1 Methodi (NEURONTIN) 10-28- [id number] capsule st 300 mg 00:00: 04:59 3D (300 mg Hospita capsule 00 :00 total) by l mouth 3 (three) times a day. predniSONE Yes 40mg QD Take 4 [facility] (DELTASONE) 9-10 tablets [facility]ukes 10 MG 00:00: (40 mg Medical tablet 00 total) by Center mouth daily Decreased 5 mg every 7 days, till discontinu e. predniSONE No 40mg QD Take [address] (DELTASONE) 9-10 10-27 tablets Luke s 10 MG 00:00: 00:00 (40 mg Medical tablet 00 :00 total) by Center mouth daily Decreased 5 mg every 7 days, till discontinu e. predniSONE No 40mg QD Take [address] (DELTASONE) 03-26 10-27 tablets Luke s 10 MG 00:00: 00:00 (40 mg Medical tablet 00 :00 total) by Center mouth daily Decreased 5 mg every 7 days, till discontinu e. sertraline Yes 25mg QD Take [address] (ZOLOFT) 25 03-25 by mouth Luke s MG tablet 18:25: daily. Medica l [address] [place] [address] azaTHIOprin Yes 50mg QD Take [address] [facility] (IMURAN) 03-25 by mouth Lukes 50 mg 18:25: daily. Medical tablet 06 [place] omeprazole Yes heartburn 20mg QD Take [address] (PRILOSEC) 03-25 by mouth [facility]ukes 20 MG 18:25: daily. Medical capsule [address] [place] [address] foLIC acid Yes 1mg Take 1 Tab U nivers (FOLATE) 1 7- by mouth ity o f mg tablet 00:00: daily. [address] HYDROcodone Yes 1{tbl} Take 1 Tab Univers -acetaminop 7- by mouth ity of hen (NORCO 00:00: every 4 [place] 5) 5-325 mg 00 (four) Medica l tablet hours as Branch needed for Pain (scale 1-3). multivitami Yes 1{tbl} Take 1 Tab Univers n tablet 7- by mouth ity of 00:00: daily. [address] omeprazole Yes 20mg Take 1 Cap U nivers (PRILOSEC) 7- by mouth ity o f 20 mg 00:00: daily. [address] predniSONE Yes 50mg Take 1 Tab U nivers (DELTASONE) 7- by mouth ity of 50 mg 00:00: daily. [address] omeprazole 2021- No 20mg QD Take [...] Date Status Commen ts Source Name Name MODERNA COVID-19 [facility] Unknown Completed [facility] V[facility]ATION [facility] COVID-19 MRNA Unknown Com[facility] Unknown Completed [facility] VACCINATION Vital Signs Vital Name Observation Time Observation Value Comments Source HEIGHT 2023-05-14 05:00:00 157.5 cm WEIGHT 2023-05-14 05:00:00 64.547 kg HEIGHT 2023-05-14 05:00:00 157.5 cm WEIGHT 2023-05-14 05:00:00 64.547 kg HEIGHT 2023-05-14 05:00:00 157.5 cm WEIGHT 2023-05-14 05:00:00 64.547 kg HEIGHT 2023-05-08 04:33:00 157.5 cm WEIGHT 2023-05-08 04:33:00 66.588 kg HEIGHT 2023-05-08 04:33:00 157.5 cm WEIGHT 2023-05-08 04:33:00 66.588 kg HEIGHT 2023-05-08 04:33:00 157.5 cm WEIGHT 2023-05-08 04:33:00 66.588 kg Systolic blood 2023-05-06 20:29:00 108 mm[Hg] [facility] Diastolic blood 2023-05-06 20:29:00 74 mm[Hg] [facility] Heart rate 2023-05-06 20:29:00 80 /min [facility] Body temperature 2023-05-06 20:29:00 36.83 Mera [facility] Respiratory rate 2023-05-06 20:29:00 14 /min [facility] Body height 2023-05-06 20:29:00 157.5 cm [facility] Body weight 2023-05-06 20:29:00 64.411 kg [facility] BMI 2023-05-06 20:29:00 25.97 kg/m2 [facility] Oxygen saturation in 2023-05-06 20:29:00 99 /min [facility] Arterial blood by [facility] Pulse oximetry Branch Respiratory rate 2023-05-15 12:00:00 18 /min [facility] Heart rate 2023-05-15 11:31:30 74 /min [facility] Oxygen saturation in 2023-05-15 11:31:30 97 /min [facility] Arterial blood by [facility] Pulse oximetry Body temperature 2023-05-15 11:30:37 36.78 Mera [facility] Systolic blood 2023-05-15 11:30:30 119 mm[Hg] [facility] Diastolic blood 2023-05-15 11:30:30 76 mm[Hg] [facility] Body height 2023-05-14 05:00:00 157.5 cm [facility] Body weight 2023-05-14 05:00:00 64.547 kg [facility] BMI 2023-05-14 05:00:00 26.03 kg/m2 [facility] Heart rate 2023-05-12 08:22:37 65 /min [facility] Respiratory rate 2023-05-12 08:22:37 17 /min [facility] Oxygen saturation in 2023-05-12 08:22:37 94 /min [facility] Arterial blood by Medical Ce nter Pulse oximetry Body temperature 2023-05-12 08:22:02 36.94 Mera [facility] Systolic blood 2023-05-12 08:22:00 133 mm[Hg] [facility] Diastolic blood 2023-05-12 08:22:00 78 mm[Hg] [facility] Body height 2023-05-08 04:33:00 157.5 cm [facility] Body weight 2023-05-08 04:33:00 66.588 kg [facility] BMI 2023-05-08 04:33:00 26.85 kg/m2 [facility] Body height 2022-07-27 16:39:00 157.5 cm [facility] Body weight 2022-07-27 16:39:00 66.225 kg [facility] BMI 2022-07-27 16:39:00 26.70 kg/m2 [facility] Systolic blood 2022-07-07 21:01:00 110 mm[Hg] [facility] pressure Diastolic blood 2022-07-07 21:01:00 74 mm[Hg] [facility] pressure Heart rate 2022-07-07 21:01:00 80 /min [facility] Respiratory rate 2022-07-07 17:46:00 16 /min [facility] Oxygen saturation in 2022-07-07 17:46:00 100 /min [facility] Arterial blood by Pulse oximetry Body temperature 2022-06-16 13:22:[address] [facility] Procedures Procedure Date / Time Performing Clinician Source Performed CBC (HEMOGRAM ONLY) 2023-05-15 04:29:00 Mariza Kennedy [facility] BASIC METABOLIC PANEL 2023-05-15 04:29:00 Mariza Kennedy [facility] MAGNESIUM 2023-05-15 04:29:00 Mariza Kennedy [facility] BASIC METABOLIC PANEL 2023-05-14 12:10:00 Mariza Kennedy [facility] MAGNESIUM 2023-05-14 12:10:00 Mariza Kennedy [facility] PHOSPHORUS 2023-05-14 12:10:00 Mariza Kennedy [facility] CBC (HEMOGRAM ONLY) 2023-05-14 12:10:00 Mariza Kennedy [facility] BASIC METABOLIC PANEL 2023-05-12 05:56:00 [facility] CALCIUM, IONIZED 2023-05-12 05:56:[address] [facility] PHOSPHORUS 2023-05-12 05:56:00 [facility] CBC W/PLT COUNT & AUTO 2023-05-12 05:56:00 [facility] MAGNESIUM 2023-05-12 05:56:00 [facility] CBC W/PLT COUNT & AUTO 2023-05-12 05:56:00 Crow Hair [facility] CBC W/PLT COUNT & AUTO 2023-05-11 06:14:[address] [facility] CALCIUM, IONIZED 2023-05-11 06:14:[address] [facility] PHOSPHORUS 2023-05-11 06:14:00 [facility] BASIC METABOLIC PANEL 2023-05-11 06:14:00 [facility] CBC W/PLT COUNT & AUTO 2023-05-11 06:14:[address] [facility] CT DRAINAGE ABDOMINAL 2023-05-10 16:42:00 Jarrett Peace [facility] WOUND CULTURE + GRAM 2023-05-10 16:37:00 Jairo Shaw [facility] CBC W/PLT COUNT & AUTO 2023-05-10 05:15:00 Afaq, [facility] DIFFERENTIAL [facility] CBC W/PLT COUNT & AUTO 2023-05-10 05:15:00 Afaq, [facility] DIFFERENTIAL [facility] CBC W/PLT COUNT & AUTO 2023-05-09 04:37:00 Afaq, [facility] DIFFERENTIAL [facility] CBC W/PLT COUNT & AUTO 2023-05-09 04:37:00 Afaq, [facility] DIFFERENTIAL [facility] COMPREHENSIVE METABOLIC 2023-05-09 04:37:00 Afaq, [facility] PANEL [facility] CBC W/PLT COUNT & AUTO 2023-05-08 21:08:00 Jarrett Peace [facility] BASIC METABOLIC PANEL 2023-05-08 21:08:00 Jarrett Peace [facility] CBC W/PLT COUNT & AUTO 2023-05-08 21:08:00 Jarrett Peace [facility] MAGNESIUM 2023-05-08 21:08:00 Jarrett Peace [facility] PHOSPHORUS 2023-05-08 21:08:00 Jarrett Peace [facility] CREATION, ILEOSTOMY, 2023-05-08 17:15:00 Satya Morales [facility] LAPAROSCOPIC [facility] ABORH, MANUAL 2023-05-08 14:49:00 Scarlett Abbasi [facility] TYPE AND SCREEN, 2023-05-08 14:26:00 [facility] AUTOMATED [facility] ECG 12-LEAD 2023-05-08 13:40:30 [facility] CBC W/PLT COUNT & AUTO 2023-05-08 07:22:00 Afaq, [facility] DIFFERENTIAL [facility] CBC W/PLT COUNT & AUTO 2023-05-08 07:22:00 Afaq, Muhammed Greyson [facility] COMPREHENSIVE METABOLIC 2023-05-08 05:11:00 Afaq, [facility] CBC W/PLT COUNT & AUTO 2023-05-07 05:25:00 Afaq, [facility] CBC W/PLT COUNT & AUTO 2023-05-07 05:25:00 Afaq, [facility] COMPREHENSIVE METABOLIC 2023-05-07 05:25:00 Afaq, [facility] PROTHROMBIN TIME/INR 2023-05-07 05:25:00 Afaq, [facility] C-REACTIVE PROTEIN 2023-05-07 05:25:00 Afaq, [facility] LACTIC ACID, VENOUS 2023-05-07 05:25:00 Afaq, [facility] PROCALCITONIN 2023-05-07 05:25:00 Afaq, [facility] CT ABDOMEN PELVIS W WO 2022-06-30 19:40:33 Joy Venegas [facility] CONTRAST CBC WITH PLATELET AND 2022-06-16 16:05:00 [facility] DIFFERENTIAL BASIC METABOLIC PANEL 2022-06-16 16:05:00 [facility] ESTIMATED GFR 2022-06-16 16:05:00 [facility] MANUAL DIFFERENTIAL 2022-06-16 16:05:00 [facility] CT ABDOMEN PELVIS W 2022-06-16 00:40:50 [facility] CONTRAST VENIPUNC NEED PHYS 2022-06-15 16:46:31 Brandie Crow [facility] SKILL,DX OR RX ESTIMATED GFR 2022-06-15 11:08:00 Tyrone Mora [facility] FECAL CALPROTECTIN 2022-06-15 08:00:00 [facility] VANCOMY[facility] LEV[facility], TROUGH 2022-06-14 17:07:00 Tyrone Mora [facility] C-REACTIVE PROTEIN 2022-06-14 11:04:00 [facility] SEDIMENTATION RATE 2022-06-14 11:04:00 Dameon Calvillo [facility] BASIC METABOLIC PANEL 2022-06-14 11:04:[address] [facility] CBC HEMOGRAM 2022-06-14 11:04:00 Stephanie Dominique spital MAGNESIUM LEVEL 2022-06-14 11:04:00 DmoiniquePaula [facility] FERRITIN LEVEL 2022-06-14 11:04:00 [facility] Orthodox Ho spital TOTAL IRON BINDING 2022-06-14 11:04:00 [facility] CAPACITY VITAMIN B12 LEVEL 2022-06-14 11:04:00 [facility] ESTIMATED GFR 2022-06-14 11:04:00 DominiquePaula [facility] POTASSIUM LEVEL 2022-06-14 02:55:00 DominiquePaula [facility] FECAL LACTOFERRIN 2022-06-13 19:23:00 [facility]ER[facility] 2022-06-13 14:32:00 Ryan Kennedy spital GRAM STAIN 2022-06-13 14:32:00 Ryan Kennedy spital ANAEROBIC CULTURE 2022-06-13 14:32:00 [facility] CBC HEMOGRAM 2022-06-13 12:03:00 Paula Dominique [facility] COMPREHENSIVE METABOLIC 2022-06-13 12:03:[address] [facility] PANEL MAGNESIUM LEVEL 2022-06-13 12:03:00 Paula Dominique [facility] PROTHROMBIN TIME WITH 2022-06-13 12:03:00 Torie Castaneda [facility] INR TYPE AND SCREEN 2022-06-13 12:03:00 Torie Castaneda [facility] ESTIMATED GFR 2022-06-13 12:03:00 Sheikh Rejimargo Bhakta spital CBC WITH PLATELET AND 2022-06-12 11:26:00 Tyrone Mora [facility] DIFFERENTIAL COMPREHENSIVE METABOLIC 2022-06-12 11:26:00 José MiguelTyrone [facility] PANEL ESTIMATED GFR 2022-06-12 11:26:00 Tyrone Mora [facility] LACTIC ACID LEVEL - NOW 2022-06-12 03:25:[address] [facility] AND REPEAT 2X EVERY 3 HOURS LACTIC ACID LEVEL - NOW 2022-06-11 23:55:[address] [facility] AND REPEAT 2X EVERY 3 HOURS COVID-19 QUALITATIVE 2022-06-11 22:44:00 [facility] RT-PCR CT ABDOMEN PELVIS W 2022-06-11 20:00:28 [facility] CONTRAST BLOOD CULTURE, AEROBIC & 2022-06-11 17:51:00 [facility] ANAEROBIC LACTIC ACID LEVEL - NOW 2022-06-11 17:51:[address] [facility] AND REPEAT 2X EVERY 3 HOURS COMPREHENSIVE METABOLIC 2022-06-11 17:51:[address] [facility] PANEL CBC WITH PLATELET AND 2022-06-11 17:51:00 [facility] DIFFERENTIAL ESTIMATED GFR 2022-06-11 17:51:00 [facility] BLOOD CULTURE, AEROBIC & 2022-06-11 17:30:00 [facility] ANAEROBIC Plan of Care Planned Activity Planned Date Details Comments Source Future Scheduled 2023-05-10 Screening for malignant [facility] 05:23:07 neoplasm of colon Hospital (procedure) [code = 207459431] Future Scheduled 2023-05-10 Screening for malignant [facility] 05:23:07 neoplasm of colon Hospital (procedure) [code = 449590745] Future Scheduled 2023-05-10 Screening for malignant [facility] 05:23:07 neoplasm of colon Hospital (procedure) [code = 190535834] Future Scheduled 2023-05-10 Hepatitis C screening [facility] 05:23:07 (procedure) [code = Hospital 052355405] Future Scheduled 2023-05-10 Screening for malignant [facility] 05:23:07 neoplasm of cervix Hospital (procedure) [code = 911295910] Future Scheduled 2023-05-10 BREAST CANCER SCREENING [facility] Test 05:23:07 [code = BREAST CANCER Hospit al SCREENING] Future Scheduled 2023-05-10 Screening for malignant [facility] Test 05:23:07 neoplasm of colon Hospital (procedure) [code = 491228904] Future Scheduled 2023-05-10 Screening for malignant [facility] 05:23:07 neoplasm of colon Hospital (procedure) [code = 099775698] Future Scheduled 2023-05-10 SHINGLES VACCINES (1 of [facility] Test 05:23:07 2) [code = SHINGLES Hospital VACCINES (1 of 2)] Future Scheduled 2023-05-10 COVID-19 VACCINE (5 - [facility] Test 05:23:07 season) [code = Hosp ital COVID-19 VACCINE (5 - season)] Future Scheduled 2023-05-10 INFLUENZA VACCINE (#1) M ethodist Test 05:23:07 [code = INFLUENZA VACCINE Ho spital (#1)] Future Scheduled 2023-05-10 Screening for malignant [facility] 05:23:07 neoplasm of colon Hospital (procedure) [code = 097233856] Future Scheduled 2023-05-10 Screening for malignant [facility] 05:23:07 neoplasm of colon Hospital (procedure) [code = 859427161] Future Scheduled 2023-05-10 Screening for malignant [facility] 05:23:07 neoplasm of colon Hospital (procedure) [code = 014820947] Future Scheduled 2023-05-10 Hepatitis C screening [facility] Test 05:23:07 (procedure) [code = Hospital 543297441] Future Scheduled 2023-05-10 Screening for malignant [facility] 05:23:07 neoplasm of cervix Hospital (procedure) [code = 765263539] Future Scheduled 2023-05-10 BREAST CANCER SCREENING [facility] Test 05:23:07 [code = BREAST CANCER Hospit al SCREENING] Future Scheduled 2023-05-10 Screening for malignant [facility] 05:23:07 neoplasm of colon Hospital (procedure) [code = 038103772] Future Scheduled 2023-05-10 Screening for malignant [facility] Test 05:23:07 neoplasm of colon Hospital (procedure) [code = 380747198] Future Scheduled 2023-05-10 SHINGLES VACCINES (1 of [facility] Test 05:23:07 2) [code = SHINGLES Hospital VACCINES (1 of 2)] Future Scheduled 2023-05-10 COVID-19 VACCINE (5 - [facility] Test 05:23:07 season) [code = Hosp ital COVID-19 VACCINE (5 - season)] Future Scheduled 2023-05-10 INFLUENZA VACCINE (#1) [facility]ist Test 05:23:07 [code = INFLUENZA VACCINE Ho spital (#1)] Future Scheduled 2023-05-05 Screening for malignant [facility] 11:30:34 neoplasm of colon Hospital (procedure) [code = 522515819] Future Scheduled 2023-05-05 Screening for malignant [facility] 11:30:34 neoplasm of colon Hospital (procedure) [code = 279335163] Future Scheduled 2023-05-05 Screening for malignant [facility] Test 11:30:34 neoplasm of colon Hospital (procedure) [code = 864437496] Future Scheduled 2023-05-05 Hepatitis C screening [facility] Test 11:30:34 (procedure) [code = Hospital 350992157] Future Scheduled 2023-05-05 Screening for malignant [facility] Test 11:30:34 neoplasm of cervix Hospital (procedure) [code = 652376809] Future Scheduled 2023-05-05 BREAST CANCER SCREENING [facility] Test 11:30:34 [code = BREAST CANCER Hospit al SCREENING] Future Scheduled 2023-05-05 Screening for malignant [facility] Test 11:30:34 neoplasm of colon Hospital (procedure) [code = 221647965] Future Scheduled 2023-05-05 Screening for malignant [facility] Test 11:30:34 neoplasm of colon Hospital (procedure) [code = 630975123] Future Scheduled 2023-05-05 SHINGLES VACCINES (1 of [facility] Test 11:30:34 2) [code = SHINGLES Hospital VACCINES (1 of 2)] Future Scheduled 2023-05-05 COVID-19 VACCINE (5 - [facility] 11:30:34 season) [code = Hosp ital COVID-19 VACCINE (5 - season)] Future Scheduled 2023-05-05 INFLUENZA VACCINE (#1) [facility] Test 11:30:34 [code = INFLUENZA VACCINE Ho spital (#1)] Future Scheduled 2023-05-05 RSV VACCINES > 60 YR (1 - [facility] Test 11:30:34 1-dose 60+ series) [code Hos pital = RSV VACCINES > 60 YR (1 - 1-dose 60+ series)] Future Scheduled 2023-03-17 Influenza Vaccine (#1[facility] [code = Influenza Vaccine Me [facility]ical Center (#1)] Future Scheduled 2023-03-17 Influenza Vaccine (#1[facility] 00:[facility] [code = Influenza Vaccine Me dical Center (#1)] Future Scheduled 2021-08-08 COVID-19 VACCINE ([facility] 00:[facility]00 Moderna series) [code = [facility] COVID-19 VACCINE (4 - Moderna series)] Future Scheduled 2021-08-08 COVID-19 VACCINE (4 - [facility] 00:00:00 Booster for Moderna Medical Center series) [code = COVID-19 VACCINE (4 - Booster for Moderna series)] Future Scheduled 2014-01-29 SHINGLES VACCINES ([address] [facility] 00:00:00 2) [code = SHINGLES [facility] Center VACCINES (1 of 2)] Future Scheduled 2014-01-29 SHINGLES VACCINES ([address] [facility] 00:00:00 2) [code = SHINGLES [facility] Center VACCINES (1 of 2)] Future Scheduled 2009-01-29 Lipid panel (procedure) [facility] 00:00:00 [code = 04404173] Medical Ce nter Future Scheduled 2009-01-29 Lipid panel (procedure) [facility] 00:00:00 [code = 60007974] Medical Ce nter Future Scheduled 1985-01-29 Screening for malignant [facility] Test 00:00:00 neoplasm of cervix Medical C enter (procedure) [code = 356876758] Future Scheduled 1985-01-29 Screening for malignant [facility] Test 00:00:00 neoplasm of cervix Medical C enter (procedure) [code = 759259700] Future Scheduled 1983-01-29 DTAP/TDAP/TD VACCINES ([address] [facility] 00:00:00 - Tdap) [code = Medical Cent er DTAP/TDAP/TD VACCINES (1 - Tdap)] Future Scheduled 1983-01-29 DTAP/TDAP/TD VACCINES ([address] [facility] 00:00:00 - Tdap) [code = Medical Cent er DTAP/TDAP/TD VACCINES (1 - Tdap)] Future Scheduled 1982-01-29 HEPATITIS C [facility]CRE[facility]ING [facility] 00:[facility]00 [code = HEPATITIS C Medical Center SCREENING] Future Scheduled 1982-01-29 HEPATITIS C [facility]ING [facility] 00:[facility]00 [code = HEPATITIS C Medical Center SCREENING] Future Scheduled 1979-01-[address] [facility] 00:00:00 virus screening Medical Cent er (procedure) [code = 510209761] Future Scheduled 1979-01-[address] [facility] 00:00:00 virus screening Medical Cent er (procedure) [code = 892126783] Future Scheduled [address] [facility] Test 00:00:00 Counseling and Screening Med [facility] (12+) [code = Tobacco Cessation Counseling and Screening (12+)] Future Scheduled [address] [facility] Test 00:00:00 Counseling [facility] Screening [facility] (12+) [code = Tobacco Cessation Counseling and Screening (12+)] Future Scheduled 1970-01-29 Pneumococcal Vaccine: [facility] 00:[facility]:00 0-64 Years (1 - PCV) Medical Center [code = Pneumococcal Vaccine: 0-64 Years (1 - PCV)] Future Scheduled 1970-01-29 Pneumococcal Vaccine: [facility] 00:00:00 0-64 Years (1 - PCV) Medical Center [code = Pneumococcal Vaccine: 0-64 Years (1 - PCV)] Future Scheduled 1964 Screening for malignant [facility] Test 00:00:00 neoplasm of colon Medical Ce nter (procedure) [code = 944861039] Future Scheduled 1964 Screening for malignant [facility] Test 00:00:00 neoplasm of colon Medical Ce nter (procedure) [code = 354439009] Future Scheduled 1964 Screening for malignant [facility] Test 00:00:00 neoplasm of colon Medical Ce nter (procedure) [code = 631923932] Future Scheduled 1964 Screening for malignant [facility] Test 00:00:00 neoplasm of colon Medical Ce nter (procedure) [code = 561153211] Future Scheduled 1964 Sigmoidoscopy [code = [facility] Sigmoidoscopy] Medical Cente r Future Scheduled 1964 Screening for malignant [facility] Test 00:00:00 neoplasm of breast Medical C enter (procedure) [code = 302470749] Future Scheduled 1964 CT Colonography (combo) [facility] 00:00:00 [code = CT Colonography [facility] Center (combo)] Future Scheduled 1964 Screening for malignant [facility] Test 00:00:00 neoplasm of breast Medical C enter (procedure) [code = 155507101] Future Scheduled 1964 CT Colonography (combo) [facility] Test 00:00:00 [code = CT Colonography Medi candido Center (combo)] Future Scheduled 1964 Screening for malignant [facility] Test 00:00:00 neoplasm of colon Medical Ce nter (procedure) [code = 090432980] Future Scheduled 1964 Screening for malignant [facility] Test 00:00:00 neoplasm of colon Medical Ce nter (procedure) [code = 212737901] Future Scheduled 1964 Screening for malignant [facility] Test 00:00:00 neoplasm of colon Medical Ce nter (procedure) [code = 634092706] Future Scheduled 1964 Screening for malignant [facility] Test 00:00:00 neoplasm of colon Medical Ce nter (procedure) [code = 756666938] Future Scheduled 1964 Sigmoidoscopy [code [facility] S[facility]oidoscopy] Medical Cente r Encounters Start End Encounter Admission Attending Care Care Encounter Source Date/Time Date/Time Type Type Clinicians Facility Department ID 2023-05-30 2023-05-30 Outpatient SATYA VINES [facility] [id number] [facility] 00:00:00 00:00:00 2023-05-18 2023-05-18 Telephone Samir [facility] [id number] 00:[facility] 00:00:00 [facility] 2023-05-17 2023-05-17 Outpatient GC_[id number] PRIV PRIV [id number] [facility] 00:00:00 00:00:00 diyala_S [id number] Medic al 2023-05-17 2023-05-17 [id number] 00:00[facility]00 00:00:00 [facility] 2023-05-14 2023-05-15 Outpatient ER [facility] Med [id number] SLE 04:46:00 12:20:00 SHAM 2023-05-14 2023-05-15 [facility] Maritza Sola Hina [facility] [id number] 04:46:00 12:20:00 Encounter Mariza Kennedy [facility] 2023-05-14 2023-05-14 Travel [facility] [id number] [facility] 00:[facility] 00:00:00 [facility] 2023-05-07 2023-05-12 [facility]patient [facility] Surgery [id number] SLE 01:37:00 12:37:00 [facility] 2023-05-07 2023-05-12 [facility] Chase Mckay [facility] [id number] 01:37:00 12:37:00 Encounter Briana Mcconnell [facility] [place] 2023-05-10 2023-05-10 Inpatient EL SATYA MORALES SLE SLE [id number] SLE 15:47:52 23:59:00 2023-05-10 2023-05-10 [facility] [id number] 15:25:00 23:59:00 Encounter Briana Mcconnell [facility] 2023-05-10 2023-05-10 [facility] [id number] 15:25:00 23:59:00 Encounter Briana Mcconnell Gre[facility] 2023-05-10 2023-05-10 Outpatient KOKI HERNÁNDEZ [facility] [id number] SLEH 00:00:00 00:00:00 NOEL Pike 2023-05-08 2023-05-08 Surgery [facility] [id number] 17:00:00 19:40:00 [facility] 2023-05-08 2023-05-08 Surgery [facility] [id number] 17:00:00 19:40:00 [facility] 2023-05-08 2023-05-08 [facility]est[facility] [id number] [facility] 17:15:00 18:57:00 Event Nick [facility] 2023-05-08 2023-05-08 Anesthesia Nuvia Arroyocameronalejandro [facility] [id number] [facility] 17:15:00 18:57:00 [facility] 2023-05-07 2023-05-07 Travel [facility] [id number] [facility] 00:00:00 00:00:00 [facility] 2023-05-07 2023-05-07 Travel [facility] [id number] [facility] 00:00:00 00:00:00 [facility] 2023-05-06 2023-05-06 Outpatient Melvin [facility] [id number] [facility] 15:15:00 15:45:29 TREVA navarro [facility] 2023-05-06 2023-05-06 Nurse Nurse, Matt [facility] 1.2.840.114 [id number] Univers 15:15:00 15:35:00 Visit Unknown, Attending HEALTH 350.1.13.10 ity of [place] 4.2.7.2.686 Quinn as YOUSIF?BLEA [id number] [address] MEDICAL OFFICE BUILDING 2023-05-05 2023-05-05 Outpatient [facility] [id number] [place] 00:00:00 00:00:[address] 2022-10-01 2022-10-01 Refill Thorne, 1.2.840.1 [id number] Methodi 00:00:00 00:00:[address] Emmanuel 3.430.2.7 Hospit a .3.271823 l .8 2022-10-01 2022-10-01 Refill Thorne, 1.2.840.1 [id number] Methodi 00:00:00 00:00:[address] Emmanuel 3.430.2.7 Hospit a .3.789878 l .8 2022-08-08 2022-08-08 Telephone Joy Abbasi 1.2.840.1 [id number] Methodi 00:00:00 00:00:[address] 3.430.2.7 Hospit a .3.951939 l .8 2022-08-08 2022-08-08 Telephone Joy Abbasi 1.2.840.1 [id number] Methodi 00:00:00 00:00:[address] 3.430.2.7 Hospit a .3.655597 l .8 2022-07-27 2022-07-27 Office Niyah, 1.2.840.1 [id number] Methodi 10:30:00 11:02:25 Visit Steph 22565.1.1 674 [address] t 3.430.2.7 Hospit a .3.121596 l .8 2022-07-27 2022-07-27 Office Haubert, 1.2.840.1 [id number] Methodi 10:30:00 11:02:25 Visit Joy Ash 28499.1.1 674 s t 3.430.2.7 Hospit a .3.848892 l .8 2022-07-27 2022-07-27 Travel 1.2.840.1 1.2.039.469 [id number] Methodi 00:00:00 00:00:[address] 3.430.2.7 0.2.7.3.698 Ho spita .3.232430 084.8 l .8 2022-07-27 2022-07-27 Travel 1.2.840.1 1.2.775.538 [id number] Methodi 00:00:00 00:00:[address] 3.430.2.7 0.2.7.3.698 Ho spita .3.387870 084.8 l .8 2022-07-08 2022-07-08 Telephone Joy Abbasi 1.2.840.1 [id number] Methodi 00:00:00 00:00:[address] 3.430.2.7 Hospit a .3.984089 l .8 2022-07-08 2022-07-08 Telephone Joy Abbasi 1.2.840.1 [id number] Methodi 00:00:00 00:00:[address] 3.430.2.7 Hospit a .3.768379 l .8 2022-07-07 2022-07-07 Office Thorne, 1.2.840.1 [id number] Methodi 14:45:00 15:26:23 Visit Zhanna 02559.1.[address] Emmanuel 3.430.2.7 Hospit a .3.121566 l .8 2022-07-07 2022-07-07 Office Thorne, 1.2.840.1 [id number] Methodi 14:45:00 15:26:23 Visit Zhanna 49840.1.[address] Emmanuel 3.430.2.7 Hospit a .3.113942 l .8 2022-07-07 2022-07-07 Office [facility], 1.2.840.1 [id number] Methodi 11:30:00 12:58:24 Visit Joy Ash 56223.1.1 357 s t 3.430.2.7 Hospit a .3.264672 l .8 2022-07-07 2022-07-07 Office [facility], 1.2.840.1 [id number] Methodi 11:30:00 12:58:24 Visit Joy Ash 32852.1.1 357 s t 3.430.2.7 Hospit a .3.585604 l .8 2022-07-07 2022-07-07 Travel 1.2.840.1 1.2.230.214 [id number] [id number] Methodi 00:00:00 00:00:[address] 3.430.2.7 0.2.7.3.698 Ho spita .3.016775 084.8 l .8 2022-07-07 2022-07-07 Travel 1.2.840.1 1.2.568.268 7669 [id number] Methodi 00:00:00 00:00:[address] 3.430.2.7 0.2.7.3.698 Ho spita .3.440188 084.8 l .8 2022-06-30 2022-06-30 [facility], 1.2.840.1 [id number] Methodi 12:56:45 23:59:00 Encounter Joy Ash 17096.1.[address] 3.430.2.7 Hospit a .3.950342 l .8 2022-06-30 2022-06-30 [facility], 1.2.840.1 [id number] Methodi 12:56:45 23:59:00 Encounter Joy Ash 44787.1.[address] 3.430.2.7 Hospit a .3.781588 l .8 2022-06-30 2022-06-30 Travel 1.2.840.1 1.2.809.785 [id number] Methodi 00:00:00 00:00:[address] 3.430.2.7 0.2.7.3.698 Ho spita .3.715323 084.8 l .8 2022-06-30 2022-06-30 Travel 1.2.840.1 1.2.757.476 2439 [id number] Methodi 00:00:00 00:00:[address] 3.430.2.7 0.2.7.3.698 Ho spita .3.525145 084.8 l .8 2022-06-11 2022-06-16 [facility] Boris Bradley. 1.2.840.1 [id number] Methodi 11:23:00 12:38:00 Encounter Tyrone Mora 68871.1.[address] [facility] 3.430.2.7 [facility] .3.501105 l .8 2022-06-11 2022-06-16 Hospital Boris Bradley 1.2.840.1 [id number] Methodi 11:23:00 12:38:00 Encounter Tyrone Mora 90346.1.[address] [facility], Sid[facility].430.2.7 [facility] .3.057779 l .8 2022-06-11 2022-06-11 Travel 1.2.840.1 1.2.272.958 [id number] Methodi 00:00:00 00:00:[address] 3.430.2.7 0.2.7.3.698 Ho spita .3.755822 084.8 l .8 2022-06-11 2022-06-11 Travel 1.2.840.1 1.2.738.012 7596 [id number] Methodi 00:00:00 00:00:[address] 3.430.2.7 0.2.7.3.698 Ho spita .3.195875 084.8 l .8 2022-05-17 2022-05-17 Travel 1.2.840.1 1.2.725.694 3116 [id number] Methodi 00:00:00 00:00:[address] 3.430.2.7 0.2.7.3.698 Ho spita .3.768332 084.8 l .8 2022-05-11 2022-05-11 Office Niyah 1.2.840.1 [id number] Methodi 10:00:00 12:20:00 Visit Joy Ash 73158.1.1 563 s t 3.430.2.7 Hospit a .3.231969 l .8 2022-05-11 2022-05-11 Orders Joy Abbasi 1.2.840.1 [id number] Methodi 00:00:00 00:00:[address] 3.430.2.7 Hospit a .3.990736 l .8 2022-05-11 2022-05-11 Travel 1.2.840.1 1.2.052.964 5744 [id number] Methodi 00:00:00 00:00:[address] 3.430.2.7 0.2.7.3.698 Ho spita .3.977127 084.8 l .8 2022-05-09 2022-05-09 Outpatient Ogletree_C [facility] [id number] [place] 00:00:00 00:00:00 [address] [facility] 2022-04-27 2022-04-27 Outpatient YAAKOVIAN, [facility] [id number] [facility] 00:00:00 00:00:[address] 2022-04-26 2022-04-26 Outpatient DELVINT, [facility] [id number] [place] 00:00:00 00:00:[address] JOY [address] 2022-04-25 2022-04-25 Emergency MARQUEZ, [facility] [id number] [place] 00:00:00 00:00:00 BORIS [address] 2022-04-14 2022-04-14 Outpatient DELVINT, [facility] [id number] [place] 00:00:00 00:00:00 JOY [address] 2022-04-04 2022-04-04 Outpatient [place] [facility] [id number] [place] 00:00:00 00:00:00 [id number] [facility] 2022-03-30 2022-03-30 Outpatient NIYAH, [facility] [id number] [place] 00:00:00 00:00:00 JOY [address] 2022-03-19 2022-03-22 Outpatient JEN NAJERA [facility] [id number] [place] 00:00:00 00:00:[address] 2022-03-02 2022-03-15 Inpatient YULIANA, [facility] [id number] [place] 00:00:00 00:00:00 TARA [address] 2022-03-10 2022-03-10 Outpatient Armstrong_B [facility] [id number] [place] 00:00:00 00:00:00 [id number] [facility] 2022-03-02 2022-03-02 Outpatient DELVINT, [facility] [id number] [place] 00:00:00 00:00:00 JOY [address] 2022-02-28 2022-02-28 Outpatient Ogletree_C [facility] [id number] [place] 00:00:00 00:00:00 [id number] [facility] 2022-02-27 2022-02-27 Outpatient Armstrong[facility]B [facility] [id number] [place] 00:00:00 00:00:00 [id number] [facility] 2022-02-11 2022-02-24 Inpatient DELVINT, [facility] [id number] [place] 00:00:00 00:00:00 JOY [address] 2022-02-11 2022-02-11 Outpatient [facility] [id number] 70-202 [place] 00:00:00 00:00:00 [id number] [facility] 2022-02-11 2022-02-11 [place] [facility] [place] [id number] [facility] 00:00:00 00:00:00 [facility] MD: [id number] [address], [place] [address] , Ph. 2022-02-11 2022-02-11 Outpatient Shree Domitila [facility] [id number]:00:00 00:00:00 Calderon [id number] Elias [id number] 2022-02-09 2022-02-09 Outpatient DELVINT, [facility] [id number] [place] 00:00:00 00:00:00 JOY [address] 2022-02-07 2022-02-07 Outpatient [facility] U [id number] [id number] [place] 12:38:00 12:38:00 [id number] [facility] 2022-02-01 2022-02-01 Outpatient [facility] U [id number] 70-202 [place] 03:01:00 03:01:00 13701 [facility] 2022-01-10 2022-01-10 Outpatient DELVINT, [facility] [id number] [place] 00:00:00 00:00:00 JOY [address] 2021-12-31 2021-12-31 Outpatient THORNE, [facility] [id number] [place] 00:00:00 00:00:00 SVETANG [address] 2021-12-20 2021-12-20 Outpatient THORNE, [facility] 033 [id number] [place] 00:00:00 00:00:00 SVETANG [address] 2021-10-28 2021-10-28 Outpatient THORNE, [facility] [id number] [place] 00:00:00 00:00:00 ZHANNA [address] Results Test Description Test Time Test Comments Results Result Comments Source MAGNESIUM 2023-05-15 05:33:18 Test Item Value Reference Range Interpretation Comme nts MAGNESIUM (BEAKER) (test code = 627) 1.9 mg/dL 1.6-2.6 Specimen slightly hemolyzed Associate Chemist ID - NTPBASIC METABOLIC [id number] 05:33:18 Test Item Value Reference Range Interpretation Comments SODIUM (BEAKER) 137 meq/L 136-145 (test code = 381) POTASSIUM 5.4 meq/L 3.5-5.1 H Specimen slight ly (BEAKER) (test hemolyzed code = 379) CHLORIDE (BEAKER) 103 meq/L 98-107 (test code = 382) CO2 (BEAKER) 21 meq/L 22-29 L (test code = 355) BLOOD UREA 18 mg/dL 7-21 NITROGEN (BEAKER) (test code = 354) CREATININE 0.73 mg/dL 0.57-1.25 Specimen slight ly (BEAKER) (test hemolyzed code = 358) GLUCOSE RANDOM 89 mg/dL 70-105 (BEAKER) (test code = 652) CALCIUM (BEAKER) 9.8 mg/dL 8.4-10.2 (test code = 697) EGFR (BEAKER) 95 Interpretatio n of eGFR (test code = [...] not appl icable for dialysis patien ts Associate Chemist ID - NTPCBC (HEMOGRAM ONLY)2023-05-15 05:15:25 Test Item Value Reference Range Interpretation Comments WHITE BLOOD CELL COUNT (BEAKER) 11.7 K/ L 3.5-10.5 H (test code = 775) RED BLOOD CELL COUNT (BEAKER) 4.60 M/ L 3.93-5.22 (test code = 761) HEMOGLOBIN (BEAKER) (test code = 11.4 GM/DL 11.2-15.7 410) HEMATOCRIT (BEAKER) (test code = 37.0 % 34.1-44.9 411) MEAN CORPUSCULAR VOLUME (BEAKER) 80 fL 79-95 (test code = 753) MEAN CORPUSCULAR HEMOGLOBIN 24.8 pg 25.6-32.2 L (BEAKER) (test code = 751) MEAN CORPUSCULAR HEMOGLOBIN CONC 30.8 GM/DL 32.2-35.5 L (BEAKER) (test code = 752) RED CELL DISTRIBUTION WIDTH 14.9 % 11.7-14.4 H (BEAKER) (test code = 412) PLATELET COUNT (BEAKER) (test 462 K/CU MM 150-450 H code = 756) MEAN PLATELET VOLUME (BEAKER) 9.9 fL 9.4-12.3 (test code = 754) NUCLEATED RED BLOOD CELLS 0 /100 WBC 0-0 (BEAKER) (test code = 413) [id number] 12:42:24 Test Item Value Reference Range Interpretation Comments PHOSPHORUS (BEAKER) 3.9 mg/dL 2.3-4.7 Specimen slightly (test code = 604) hemolyzed Associate Chemist ID - ADMINBASIC METABOLIC [id number] 12:42:24 Test Item Value Reference Range Interpretation Comments SODIUM (BEAKER) 137 meq/L 136-145 (test code = 381) POTASSIUM 4.6 meq/L 3.5-5.1 Specimen slight ly (BEAKER) (test hemolyzed code = 379) CHLORIDE (BEAKER) 103 meq/L 98-107 (test code = 382) CO2 (BEAKER) 22 meq/L 22-29 (test code = 355) BLOOD UREA 17 mg/dL 7-21 NITROGEN (BEAKER) (test code = 354) CREATININE 0.74 mg/dL 0.57-1.25 Specimen slight ly (BEAKER) (test hemolyzed code = 358) GLUCOSE RANDOM 78 mg/dL 70-105 (BEAKER) (test code = 652) CALCIUM (BEAKER) 9.6 mg/dL 8.4-10.2 (test code = 697) EGFR (BEAKER) 93 Interpretatio n of eGFR (test code = [...] not appl icable for dialysis patien ts Associate Chemist ID - [id number] 12:42:23 Test Item Value Reference Range Interpretation Comments MAGNESIUM (BEAKER) 1.7 mg/dL 1.6-2.6 Specimen slightly (test code = 627) hemolyzed Associate Chemist ID - ADMINCBC (HEMOGRAM ONLY)2023-05-14 12:21:41 Test Item Value Reference Range Interpretation Comments WHITE BLOOD CELL COUNT (BEAKER) 10.5 K/ L 3.5-10.5 (test code = 775) RED BLOOD CELL COUNT (BEAKER) 4.53 M/ L 3.93-5.22 (test code = 761) HEMOGLOBIN (BEAKER) (test code = 11.8 GM/DL 11.2-15.7 410) HEMATOCRIT (BEAKER) (test code = 37.1 % 34.1-44.9 411) MEAN CORPUSCULAR VOLUME (BEAKER) 82 fL 79-95 (test code = 753) MEAN CORPUSCULAR HEMOGLOBIN 26.0 pg 25.6-32.2 (BEAKER) (test code = 751) MEAN CORPUSCULAR HEMOGLOBIN CONC 31.8 GM/DL 32.2-35.5 L (BEAKER) (test code = 752) RED CELL DISTRIBUTION WIDTH 14.8 % 11.7-14.4 H (BEAKER) (test code = 412) PLATELET COUNT (BEAKER) (test 435 K/CU MM 150-450 code = 756) MEAN PLATELET VOLUME (BEAKER) 10.1 fL 9.4-12.3 (test code = 754) NUCLEATED RED BLOOD CELLS 0 /100 WBC 0-0 (BEAKER) (test code = 413) WOUND CULTURE + GRAM [id number] 11:05:54 Test Item Value Reference Range Interpretation Comments CULTURE (BEAKER) (test PSEUDOMONAS A <1+ P seudomonas code = 1095) AERUGINOSA aeruginosa Amikacin (test code = See_Comment S [Auto mated 1) message] The system which generated this result transmitted reference range : Susceptible 0-1 6 , Resistant <0 or >16 . The reference range was not used to interpret this result as normal/abnormal . Aztreonam (test code = See_Comment S [Aut omated 32) message] The system which generated this result transmitted reference range : Susceptible 0-8 , Resistant <0 or >8 . The reference range was not used to interpret this result as normal/abnormal . Cefepime (test code = See_Comment S [Auto mated 51) message] The system which generated this result transmitted reference range : Susceptible 0-8 , Resistant <0 or >8 . The reference range was not used to interpret this result as normal/abnormal . Ceftazidime (test code See_Comment S [Aut omated = 27) message] The system which generated this result transmitted reference range : Susceptible 0-8 , Resistant <0 or >8 . The reference range was not used to interpret this result as normal/abnormal . Ciprofloxacin (test See_Comment S [Automa karyn code = 7) message] The system which generated this result transmitted reference range : Susceptible 0-0.5 , Resistant <0 or >.5 . The reference range was not used to interpret this result as normal/abnormal . Gentamicin (test code See_Comment S [Auto mated = 18) message] The system which generated this result transmitted reference range : Susceptible 0-4 , Resistant <0 or >4 . The reference range was not used to interpret this result as normal/abnormal . Levofloxacin (test See_Comment S [Automat ed code = 22) message] The system which generated this result transmitted reference range : Susceptible 0-1 , Resistant <0 or >1 . The reference range was not used to interpret this result as normal/abnormal . Meropenem (test code = See_Comment S [Aut omated 34) message] The system which generated this result transmitted reference range : Susceptible 0-2 , Resistant <0 or >2 . The reference range was not used to interpret this result as normal/abnormal . Piperacillin (test See_Comment S [Automat ed code = 24) message] The system which generated this result transmitted reference range : Susceptible 0-1 6 , Resistant <0 or >16 . The reference range was not used to interpret this result as normal/abnormal . Piperacillin + See_Comment S [Automated Tazobactam (test code messag e] The = 29) system which generated this result transmitted reference range : Susceptible 0-1 6 , Resistant <0 or >16 . The reference range was not used to interpret this result as normal/abnormal . Tobramycin (test code See_Comment S [Auto mated = 25) message] The system which generated this result transmitted reference range : Susceptible 0-4 , Resistant <0 or >4 . The reference range was not used to interpret this result as normal/abnormal . CULTURE (BEAKER) (test SERRATIA A <1+ S erratia code = 1095) MARCESCENS marcescens Amikacin (test code = S 1) Aztreonam (test code = S 32) Cefepime (test code = S 51) Cefoxitin (test code = R 68) Ceftazidime (test code S = 27) Ceftriaxone (test code S = 52) Ertapenem (test code = S 38) Gentamicin (test code S = 18) Levofloxacin (test S code = 22) Meropenem (test code = S 34) Nitrofurantoin (test R code = 23) Tetracycline (test S code = 2) Tobramycin (test code S = 25) Trimethoprim + S Sulfamethoxazole (test code = 47) GRAM STAIN RESULT 4+ WBCs (BEAKER) (test code = 1123) GRAM STAIN RESULT <1+ gram variable (BEAKER) (test code = rods 399178) BASIC METABOLIC [id number] 06:42:54 Test Item Value Reference Range Interpretation Comments SODIUM (BEAKER) 142 meq/L 136-145 (test code = 381) POTASSIUM 4.7 meq/L 3.5-5.1 Specimen slight ly (BEAKER) (test hemolyzed code = 379) CHLORIDE (BEAKER) 105 meq/L 98-107 (test code = 382) CO2 (BEAKER) 27 meq/L 22-29 (test code = 355) BLOOD UREA 13 mg/dL 7-21 NITROGEN (BEAKER) (test code = 354) CREATININE 0.69 mg/dL 0.57-1.25 Specimen slight ly (BEAKER) (test hemolyzed code = 358) GLUCOSE RANDOM 132 mg/dL 70-105 H (BEAKER) (test code = 652) CALCIUM (BEAKER) 10.0 mg/dL 8.4-10.2 (test code = 697) EGFR (BEAKER) 100 Interpretatio n of eGFR (test code = mL/min/1.73 values Stage De scription 1092) sq m Result G1 Geraldine l or high >=90 G2 Mildly decreased 60-89 G3a Mild ly to moderately 45-5 9 G3b Moderately to [...] not appl icable for dialysis patien ts Associate Chemist ID - [id number] 06:42:53 Test Item Value Reference Range Interpretation Comments MAGNESIUM (BEAKER) 1.7 mg/dL 1.6-2.6 Specimen slightly (test code = 627) hemolyzed Associate Chemist ID - [id number] 06:42:53 Test Item Value Reference Range Interpretation Comments PHOSPHORUS (BEAKER) 3.8 mg/dL 2.3-4.7 Specimen slightly (test code = 604) hemolyzed Associate Chemist ID - MARCOCALCIUM, [id number] 06:31:47 Test Item Value Reference Range Interpretation Comments CALCIUM IONIZED (BEAKER) (test 1.18 mmol/L 1.12-1.27 code = 698) PH, BLOOD (BEAKER) (test code = 7.43 1810) CBC W/PLT COUNT & AUTO [id number] 06:24:26 Test Item Value Reference Range Interpretation [...] (BEAKER) (test code = 2801) CT DRAINAGE [id number] 09:16:44 [facility] : 1965 Sex: FPROCEDURE: Fluid collection aspirationProcedural PersonnelAttending physician(s): Jairo Shaw MDPre-procedure diagnosis: Left pericolic gutter small collectionPost-procedure diagnosis: [...] Small pericolic gutter collection- Aspiration needle/catheter: 5 Divehi Yu- Post-aspiration imaging findings: Partial drainage of the fluidcollectionContrastContrast agent: NoneRadiation DoseCT dose length product (mGy-cm): 887 Additional DetailsAdditional description of procedure: NoneEquipment details: NoneSpecimens removed: Aspirated fluid was sent for analysis.Estimated blood loss (mL): Less than 5Electronically Signed By: Jairo Shaw05/11/2023 09:18 CDTWorkstation Name: [id number] 07:17:26 Test Item Value Reference Range Interpretation Comments PHOSPHORUS (BEAKER) (test code = 4.2 mg/dL 2.3-4.7 604) Associate Chemist ID - ADMINBASIC METABOLIC [id number] 07:17:25 Test Item Value Reference Range Interpretation [...] not appl icable for dialysis patien ts Associate Chemist ID - ADMINCALCIUM, [id number] 06:28:34 Test Item Value Reference Range Interpretation Comments CALCIUM IONIZED (BEAKER) (test 1.20 mmol/L 1.12-1.27 code = 698) PH, BLOOD (BEAKER) (test code = 7.38 1810) CBC W/PLT COUNT & AUTO [id number] 06:27:11 Test Item Value Reference Range Interpretation [...] = 2801) CBC W/PLT COUNT & AUTO [id number] 06:08:50 Test Item Value Reference Range Interpretation [...] (BEAKER) (test code = 2801) COMPREHENSIVE METABOLIC [id number] 05:28:35 Test Item Value Reference Range Interpretation [...] not appl icable for dialysis patien ts Associate Chemist ID - emCBC W/PLT COUNT & AUTO [id number] 04:59:14 Test Item Value Reference Range Interpretation [...] GRANULOCYTES-RELATIVE PERCENT (BEAKER) (test code = 2801) [id number] 22:12:55 Test Item Value Reference Range Interpretation Comments PHOSPHORUS (BEAKER) (test code = 3.4 mg/dL 2.3-4.7 604) Associate Chemist ID - [id number] 22:12:54 Test Item Value Reference Range Interpretation Comments MAGNESIUM (BEAKER) (test code = 1.6 mg/dL 1.6-2.6 627) Associate Chemist ID - ADMINBASIC METABOLIC [id number] 21:35:51 Test Item Value Reference Range Interpretation [...] not appl icable for dialysis patien ts Associate Chemist ID - BCCBC W/PLT COUNT & AUTO [id number] 21:29:35 Test Item Value Reference Range Interpretation [...] = 2801) CBC W/PLT COUNT & AUTO [id number] 09:10:45 Test Item Value Reference Range Interpretation [...] (BEAKER) (test code = 2801) COMPREHENSIVE METABOLIC [id number] 06:45:40 Test Item Value Reference Range Interpretation [...] not appl icable for dialysis patien ts Associate Chemist ID - ADMINCOMPREHENSIVE METABOLIC [id number] 07:49:18 Test Item Value Reference Range Interpretation [...] not appl icable for dialysis patien ts Associate Chemist ID - ADMINC-REACTIVE [id number] 07:49:18 Test Item Value Reference Range Interpretation Comments C-REACTIVE PROTEIN (InfoRemateAKER) (test 12.81 mg/dL 0.00-0.50 H code = 676) Associate Chemist ID - ADMINLACTIC ACID, [id number] 07:03:34 Test Item Value Reference Range Interpretation Comments LACTATE BLOOD VENOUS 0.63 mmol/L 0.50-2.00 Specime n slightly (2) (BEAKER) (test hemolyzed code = 2872) Associate Chemist ID - [id number] 06:47:06 Test Item Value Reference Range Interpretation Comments PROCALCITONIN (InfoRemateAKER) (test code = < ng/mL <0.05 3036) SEPSIS RISK (ng/mL)Low: 0.05-0.50Intermediate: 0.51-2.00High: >=2.01CBC W/PLT COUNT & AUTO [id number] 06:23:42 Test Item Value Reference Range Interpretation [...] PERCENT (BEAKER) (test code = 2801) PROTHROMBIN [id number] 06:22:24 Test Item Value Reference Range Interpretation Comments PROTIME (BEAKER) (test code = 13.5 seconds 11.9-14.2 759) INR (BEAKER) (test code = 370) 1.02 <=5.90 RECOMMENDED COUMADIN/WARFARIN INR THERAPY RANGESSTANDARD DOSE: 2.0 - 3.0 Includes: PROPHYLAXIS for venous thrombosis, systemic embolization; TREATMENT for venous thrombosis and/or pulmonary embolus.HIGH RISK: Target INR is 2.5-3.5 for patients with mechanical heart valves.Fecal [id number] 18:40:00 Test Item Value Reference Range Interpretation Comments Fecal calprotectin (test 327.98 See_Comment H [A utomated message] code = 22580-1) The system [employer] generated this result transmitted ref erence range: <15.6-12 0 mg/kg. The refe rence range was not u sed to interpret this result as normal/abnor mal. Lab Interpretation (test Abnormal code = 37407-2) [facility] [id number] 18:40:00 Test Item Value Reference Range Interpretation Comments Fecal calprotectin (test 327.98 See_Comment H [A utomated message] code = 70054-6) The system [employer] generated this result transmitted ref erence range: <15.6-12 0 mg/kg. The refe rence range was not u sed to interpret this result as normal/abnor mal. Lab Interpretation (test Abnormal code = 36726-7) [facility] [id number] 18:40:00 Test Item Value Reference Range Interpretation Comments Fecal calprotectin (test 327.98 See_Comment H [A utomated message] code = 45634-0) The system [employer] generated this result transmitted ref erence range: <15.6-12 0 mg/kg. The refe rence range was not u sed to interpret this result as normal/abnor mal. Lab Interpretation (test Abnormal code = 32365-3) [facility] [id number] 17:52:00 Test Item Value Reference Interpretation Comments Range Anaerobic culture Bacteroides A Specimen isolate ([facility]The [facility] code = 03761-9) performance [facility]: [facility] Site: this assay on this Abdominal wall isolatewere validated by the Microbiology Laboratory at [facility]. This source has not been approved by the U.S. Food and Drug Administration. The results are not intended to be used as the sole means for clinical diagnosis or patient management. The Microbiology Laboratory is authorized under the clinical Laboratory Improvement Amendments of 1988 (CLIA-88) to perform high complexity testing. Lab Abnormal Interpretation (test code = 38411-1) [facility] [id number] 17:52:00 Test Item Value Reference Interpretation Comments Range Anaerobic culture Bacteroides A Specimen isolate (test fragilisThe [facility] code = 36236-5) performance Source: Abdo charisse characteristics [facility] Site: this assay on this Abdominal wall isolatewere validated by the Microbiology Laboratory at [facility]. This source has not been approved by the U.S. Food and Drug Administration. The results are not intended to be used as the sole means for clinical diagnosis or patient management. The Microbiology Laboratory is authorized under the clinical Laboratory Improvement Amendments of 1988 (CLIA-88) to perform high complexity testing. Lab Abnormal Interpretation (test code = 58933-1) [facility] [id number] 17:52:00 Test Item Value Reference Interpretation Comments Range Anaerobic culture Bacteroides A Specimen isolate ([facility] code = 69385-7) performance Source: [facility] Site: this assay on this Abdominal wall isolatewere validated by the Microbiology Laboratory at [facility]. This source has not been approved by the U.S. Food and Drug Administration. The results are not intended to be used as the sole means for clinical diagnosis or patient management. The Microbiology Laboratory is authorized under the clinical Laboratory Improvement Amendments of 1988 (CLIA-88) to perform high complexity testing. Lab Abnormal Interpretation (test code = 35561-1) [facility] [Presence] in Respiratory specimen by TOBIAS with probe [id number] 17:55:21 Test Item Value Reference Range Interpretation Comments SARS-CoV-2 (COVID-19) RNA Not detected [Presence] in Respiratory specimen by TOBIAS with probe detection (test code = 16674-3) Whether patient is employed in a Unknown healthcare setting (test code = 65241-8) Whether the patient has symptoms Unknown related to condition of interest (test code = 28154-3) Whether the patient was Unknown hospitalized for condition of interest (test code = 25757-5) Whether the patient was admitted Unknown to intensive care unit (ICU) for condition of interest (test code = 69525-0) Whether patient resides in a Unknown congregate care setting (test code = 31478-0) status (test code = Unknown 21571-6) Date and time of symptom onset Unknown (test code = 64067-2) [facility] [Presence] in Respiratory specimen by TOBIAS with probe [id number] 06:59:25 Test Item Value Reference Range Interpretation Comments SARS-CoV-2 (COVID-19) RNA Not detected [Presence] in Respiratory specimen by TOBIAS with probe detection (test code = 73032-1) Whether patient is employed in a Unknown healthcare setting (test code = 66751-9) Whether the patient has symptoms Unknown related to condition of interest (test code = 59815-3) Whether the patient was Unknown hospitalized for condition of interest (test code = 68755-7) Whether the patient was admitted Unknown to intensive care unit (ICU) for condition of interest (test code = 64994-5) Whether patient resides in a Unknown congregate care setting (test code = 07942-5) status (test code = Unknown 11748-4) Date and time of symptom onset Unknown (test code = 49455-8) [facility] [id number] 07:12:00 Test Item Value Reference Range Interpretation [...] code = 248) STOOL CULTURE + SHIGA [id number] 12:14:00 Test Item Value Reference Range Interpretation Comments CULTURE (BEAKER) No Salmonella, Shigella (test code = 1095) or Campylobacter isolated CMV PCR, [id number] 14:49:00 Test Item Value Reference Range Interpretation [...] and its performance characteristics determined by the [facility], Section of Molecular Pathology. It has not been cleared or approved by the U.S. Foodand Drug Administration (FDA), since FDA approval is not required for clinical use of the test. Validation was done as required by The Clinical Laboratory Improvement Amendments of 1988.CT, ABDOMEN - PELVIS, [id number] 09:40:00Reason for exam:->UC with strictureFINAL REPORT INDICATION:Abdominal [...] MDReport Verified Date/Time: 03/24/2019 09:40:40 Reading Location: [facility] C013Y CT Body Reading Room L PATH [id number] 09:03:00 Test Item Value Reference Range Interpretation Comments PATHOGEN EXAM CHARGED (BEAKER) (test Done code = 2381) [id number] 06:09:00 Test Item Value Reference Range Interpretation Comments PHOSPHORUS (BEAKER) (test code = 3.1 mg/dL 2.3-4.7 604) [id number] 06:09:00 Test Item Value Reference Range Interpretation Comments MAGNESIUM (BEAKER) (test code = 2.1 mg/dL 1.6-2.6 627) BASIC METABOLIC [id number] 06:09:00 Test Item Value Reference Range Interpretation [...] APPLICABLE FOR DIALYSIS PATIEN TS. HEPATIC FUNCTION [id number] 06:09:00 Test Item Value Reference Range Interpretation [...] 6-55 347) CBC W/PLT COUNT & AUTO [id number] 05:36:00 Test Item Value Reference Range Interpretation [...] (BEAKER) (test code = 2801) SHIGA TOXIN [id number] 15:16:00 Test Item Value Reference Range Interpretation Comments SHIGA TOXIN 1 (BEAKER) (test Not detected Not detected code = 2177) SHIGA TOXIN 2 (BEAKER) (test Not detected Not detected code = 2179) [id number] 05:53:00 Test Item Value Reference Range Interpretation Comments PHOSPHORUS (BEAKER) (test code = 2.7 mg/dL 2.3-4.7 604) [id number] 05:53:00 Test Item Value Reference Range Interpretation Comments MAGNESIUM (BEAKER) (test code = 2.1 mg/dL 1.6-2.6 627) BASIC METABOLIC [id number] 05:53:00 Test Item Value Reference Range Interpretation [...] APPLICABLE FOR DIALYSIS PATIEN TS. HEPATIC FUNCTION [id number] 05:53:00 Test Item Value Reference Range Interpretation [...] 6-55 347) CBC W/PLT COUNT & AUTO [id number] 05:08:00 Test Item Value Reference Range Interpretation [...] code = 2801) URINALYSIS W/ REFLEX URINE [id number] 21:50:00 Test Item Value Reference Range Interpretation [...] 520) SOURCE(BEAKER) (test code = 2795) C-REACTIVE [id number] 19:18:00 Test Item Value Reference Range Interpretation Comments C-REACTIVE PROTEIN (BEAKER) (test 20.33 mg/dL 0.00-0.50 H code = 676) [id number] 03:05:00 Test Item Value Reference Range Interpretation Comments MAGNESIUM (BEAKER) 2.0 mg/dL 1.6-2.6 Specimen slightly (test code = 627) hemolyzed [id number] 03:05:00 Test Item Value Reference Range Interpretation Comments PHOSPHORUS (BEAKER) 3.3 mg/dL 2.3-4.7 Specimen slightly (test code = 604) hemolyzed BASIC METABOLIC [id number] 03:05:00 Test Item Value Reference Range Interpretation [...] 697) EGFR (BEAKER) (test 98 mL/min/1.73 ESTIMA KARYN GFR IS code = 1092) sq m NOT ACCURATE CREATININE CLEARANCE IN PREDICTING GLOMERULAR FILTRATION RATE . ESTIMATED GFR I S NOT APPLICABLE FOR DIALYSIS PATIEN TS. HEPATIC FUNCTION [id number] 03:05:00 Test Item Value Reference Range Interpretation [...] 347) hemolyzed CBC W/PLT COUNT & AUTO [id number] 02:46:00 Test Item Value Reference Range Interpretation [...] % 0-1 PERCENT (BEAKER) (test code = 7536)
--- NOTE | 2023-05-28 12:36 | EDPHYS ---
Physician Documentation [facility] Name: Stephanie Doshi Age: 58 yrs Sex: Female : 1965 Arrival Date: 05/28/2023 Time: 11:39 Bed 18 Private MD: ED Physician Castillo Frances HPI: 05/28 13:26 This 58 yrs old Female presents to ER via Ambulatory with complaints of Skin Problem - kb Conn. 13:26 Pt is a 58 year old female who presents for redness of skin around stoma. States she kb sent a picture of it to her home health nurse and was told it looked like a burn so she should come to the ER for evaluation. Historical: - Allergies: 11:52 Codeine; ss 11:52 Levaquin; ss - PMHx: 11:52 Crohn's; ulcerative colitis; ss - PSHx: 11:52 ileostomy (ti); ss - Immunization history:: Client reports having NOT received the Covid vaccine. - Social history:: Smoking status: Patient denies any tobacco usage or history of. ROS: 13:23 Constitutional: Negative for fever, chills, and weight loss, kb 13:23 Skin: Positive for abrasion(s), erythema, of the right lower quadrant, 13:23 All other systems are negative, Exam: 13:24 Constitutional: This is a well developed, well nourished patient who is awake, alert, kb and in no acute distress. Head/Face: Normocephalic, atraumatic. ENT: Moist Mucous membranes Cardiovascular: Regular rate Respiratory: Respirations even and unlabored. No increased work of breathing. Talking in full sentences Abdomen/GI: Soft, non-tender. No distention MS/ Extremity: Pulses equal, no cyanosis. Neurovascular intact. Full, normal range of motion. Neuro: Awake and alert, GCS 15, oriented to person, place, time, and situation. Moves all extremities. Normal gait. 13:24 Skin: skin irritation around stoma, where adhesive meets the skin. skin is erythematous and has some areas of open skin. Vital Signs: 11:51 BP 145 / 94; Pulse 97; Resp 16; Temp 97.7(TE); Pulse Ox 100% on R/A; Height 5 ft. 2 in. ss ; Pain 8/10; 12:52 BP 141 / 91; Pulse 89; Resp 16; ll1 11:51 Pain Scale: Adult ss MDM: 11:49 Patient medically screened. kb 13:24 Differential diagnosis: skin infection, abscess, cellulitis, contact dermatitis. Data kb reviewed: vital signs, nurses notes. Counseling: I had a detailed discussion with the patient and/or guardian regarding the historical points, exam findings, and any diagnostic results supporting the discharge/admit diagnosis, the need for outpatient follow up, a family practitioner, to return to the emergency department if symptoms worsen or persist or if there are any questions or concerns that arise at home. Administered Medications: No medications were administered Disposition Summary: 05/28/23 12:36 Discharge Ordered Notes: Location: Home kb Condition: Stable kb Diagnosis - Allergic contact dermatitis due to adhesives kb Followup: kb - With: Emergency Department - When: As needed - Reason: Worsening of condition Followup: kb - With: Private Physician - When: 2 - 3 days - Reason: Recheck today's complaints, Continuance of care, Re-evaluation by your physician Discharge Instructions: - Discharge Summary Sheet kb - Contact Dermatitis kb Forms: - Medication Reconciliation Form kb - Thank You Letter kb - Antibiotic Education kb - Prescription Opioid Use kb - Patient Portal Instructions kb - Leadership Thank You Letter kb Prescriptions: - mupirocin 2 % Topical ointment - apply 1 application TOPICAL route 3 times per day; 1 unit; Refills: 0, Product kb Selection Permitted Addendum: 05/30/2023 07:37 I was immediately available for consultation during this patient's visit. I did not e c2 personally see the patient or guide the patient's care.. Signatures: Shivani Guardado, REGINA-Harrison TAPIA-Corrie Scanlon, WOLF RN ss Castillo Frances MD MD ec2 Corrections: (The following items were deleted from the chart) 05/28 13:26 13:24 Skin: skin irritation around stoma, where adhesive meets the skin. kb kb
--- NOTE | 2023-05-28 12:36 | ER ---
Nurse's Notes [facility] Name: Stephanie Doshi Age: 58 yrs Sex: Female : 1965 Arrival Date: 05/28/2023 Time: 11:39 Bed 18 Private MD: Diagnosis: Allergic contact dermatitis due to adhesives Presentation: 05/28 11:51 Chief complaint: Patient states: irritated skin around ostomy sight x 1 month. ss Coronavirus screen: Client denies travel out of the [place] in the last 14 days. Ebola Screen: Patient denies exposure to infectious person. Patient denies travel to an Ebola-affected area in the 21 days before illness onset. Initial Sepsis Screen: Does the patient meet any 2 criteria? No. Patient's initial sepsis screen is negative. Does the patient have a suspected source of infection? No. Patient's initial sepsis screen is negative. Risk Assessment: Do you want to hurt yourself or someone else? Patient reports no desire to harm self or others. Onset of symptoms is unknown. 11:51 Method Of Arrival: Ambulatory 11:51 Acuity: RENÉ 4 ss Historical: - Allergies: 11:52 Codeine; ss 11:52 Levaquin; ss - PMHx: 11:52 Crohn's; ulcerative colitis; ss - PSHx: 11:52 ileostomy (ti); ss - Immunization history:: Client reports having NOT received the Covid vaccine. - Social history:: Smoking status: Patient denies any tobacco usage or history of. Screenin:54 [facility] ED Fall Risk Assessment (Adult) History of falling in the last 3 months, tm6 including since admission No falls in past 3 months (0 pts). Abuse screen: Denies threats or abuse. Denies injuries from another. Nutritional screening: No deficits noted. Tuberculosis screening: No symptoms or risk factors identified. Assessment: 11:54 General: Appears in no apparent distress. Behavior is calm, cooperative, appropriate tm6 for age. Pain: Complains of pain in abdomen Quality of pain is described as burning. Neuro: Level of Consciousness is awake, alert, obeys commands, Oriented to person, place, time, situation, Appropriate for age. Cardiovascular: Capillary refill < 3 seconds Patient's skin is warm and dry. Respiratory: Airway is patent Respiratory effort is even, unlabored, Respiratory pattern is regular, symmetrical. GI: Colostomy site is excoriated. Ostomy appliance is intact. : No signs and/or symptoms were reported regarding the genitourinary system. EENT: No signs and/or symptoms were reported regarding the EENT system. Derm: Reports excoriation around stoma. Musculoskeletal: No signs and/or symptoms reported regarding the musculoskeletal system. 12:52 Reassessment: No changes from previously documented assessment. Patient and/or family ll1 updated on plan of care and expected duration. Pain level reassessed. Patient is alert, oriented x 3, equal unlabored respirations, skin warm/dry/pink. Vital Signs: 11:51 BP 145 / 94; Pulse 97; Resp 16; Temp 97.7(TE); Pulse Ox 100% on R/A; Height 5 ft. 2 in. ss ; Pain 8/10; 12:52 BP 141 / 91; Pulse 89; Resp 16; ll1 11:51 Pain Scale: Adult ss ED Course: 11:44 Patient arrived in ED. mg5 11:44 Shivani Guardado FNP-C is PHCP. kb 11:44 Castillo Frances MD is Attending Physician. kb 11:52 Triage completed. ss 11:52 Arm band placed on left wrist. ss 11:53 Nino Doss, RN is Primary Nurse. tm6 11:54 Patient has correct armband on for positive identification. Placed in gown. Bed in low tm6 position. Call light in reach. Side rails up X2. Provided Education on: exam of stoma. Client placed on continuous cardiac and pulse oximetry monitoring. NIBP monitoring applied. Door closed. Noise minimized. 11:54 No provider procedures requiring assistance completed. tm6 12:53 Patient did not have IV access during this emergency room visit. ll1 Administered Medications: No medications were administered Medication: 11:54 VIS not applicable for this client. tm6 Outcome: 12:36 Discharge ordered by . kb 12:53 Discharged to home ambulatory, ll1 12:53 Condition: stable 12:53 Discharge instructions given to patient, Instructed on discharge instructions, follow up and referral plans. medication usage, Demonstrated understanding of instructions, follow-up care, medications, Prescriptions given X 1, 12:53 Patient left the ED. ll1 Signatures: Shivani Guardado FNP-C FNP-Ckb Corrie Rosario, RN RN ss Divya Hill, RN RN ll1 Pastora Harris mg5 Nino Doss, RN RN tm6
[2023-05-28 12:57] VITALS: TEMP 97.7; O2SAT 100
[2023-05-28 12:59] VITALS: BP 141/91
== END 2023-05-28 12:53 | disposition home or self-care (01) ==
LOC: ER 11:39
DX: L23.1 Allergic contact dermatitis due to adhesives (principal)
CPT/HCPCS: 99283

== ENCOUNTER → 2023-09-24 | Emergency (ER) | payer BC, SELFPAY ==
[~2023-09-24] MED LIST: CEFTRIAXONE 1000 MG/VIAL ONE; FAMOTIDINE 20 MG/2 ML VIAL IV ONE; METRONIDAZOLE 500mg IVPB 500 MG/100 ML BAG IV ONE; MORPHINE 4 MG/ML SYR ONE; NA CHLORIDE 0.9% 1,000 ML ONE; NA CHLORIDE 0.9% 50 ML ONE; ONDANSETRON 4 MG/2 ML VIAL ONE; PROMETHAZINE INJ 25 MG/ML AMP ONE
[2023-09-24 07:36] LABS: Absolute Basophils 0.1 K/uL (0-0.5); Absolute Lymphocytes (CBC) 1.7 K/uL (0.7-4.9); Basophils % 0.6 % (0-1.3); Eosinophils % 0.3 % (0-4.4); Hematocrit 36.5 % (36.0-45.0); Lymphocytes % 18.7 % (15.3-44.8); MCV 79.6 fL (80-100); MPV 8.5 fL (7.6-11.3); Platelets 291 thou/uL (152-406); RBC Red Blood Cell Count 4.59 M/uL (3.86-4.86)
[2023-09-24 07:48] LABS: Albumin 3.9 g/dL (3.4-5.0); Albumin/Globulin Ratio 0.9 (1.1-1.8); Bilirubin Total 0.4 mg/dL (0.2-1.0); Globulin 4.4 g/dL (2.3-3.5); Protein, Total 8.3 g/dL (6.4-8.2)
--- NOTE | 2023-09-24 09:21 | RAD REPORT ---
EXAM DESCRIPTION: CTAbdomen Pelvis W Contrast - 09/24/2023 8:20 am CLINICAL HISTORY: ABD PAIN COMPARISON: Abdomen Pelvis W Contrast dated 05/13/2023; Abdomen Pelvis W Contrast dated 05/06/20 23; Abdomen Pelvis W Contrast dated 03/21/2019; Abdomen Pelvis W Contrast dated 03/13/2019 TECHNIQUE: CT of the abdomen and pelvis was performed. All CT scans are performed using dose optimization technique as appropriate and may include automated exposure control or mA/KV adjustment according to patient size. FINDINGS: Lower chest: No acute abnormality. Liver: Mild intrahepatic biliary duct dilatation. Biliary: Cholelithiasis. Mild extrahepatic biliary duct dilatation. Stomach: No significant focal abnormality. Duodenum: No significant focal abnormality. Pancreas: No significant abnormality. Spleen: No significant abnormality. Adrenal: No suspicious lesions. Kidney/ureter: No hydronephrosis. No renal calculi. Retroperitoneum: No retroperitoneal adenopathy. Vascular: No aneurysm. Bowel: Colitis at the transverse colon. The patient has a Kelvin's pouch and a right lower quadrant ileostomy.. Peritoneum: No ascites or free air. Bladder: Grossly unremarkable. Reproductive: Solid-appearing right adnexal mass is unchanged since 2019. Bones: No acute fracture. Other: n/a IMPRESSION: Colitis at the transverse colon. 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 There is inspissated stool. A diverting right lower quadrant ileostomy is present. Cholelithiasis. No CT is acute cholecystitis. Extrahepatic biliary duct dilatation and mild intrahepa tic biliary duct dilatation noted. Correlate with LFTs.
--- NOTE | 2023-09-24 10:05 | EDPHYS ---
Physician Documentation [facility] Name: Stephanie Doshi Age: 58 yrs Sex: Female : 1965 Arrival Date: 09/24/2023 Time: 07:09 Bed 13 Private MD: Jamie Conti ED Physician Aashish Boykin HPI: 09/23 09:04 This 58 yrs old Female presents to ER via Ambulatory with complaints of snow Abdominal Pain, Diarrhea. 09:04 The patient presents to the emergency department with nausea, vomiting, diarrhea, that snow is continuous, abdominal pain, of the right upper quadrant, left upper quadrant, right lower quadrant and left lower quadrant. Onset: The symptoms/episode began/occurred 2 day(s) ago. Possible causes: unknown. Possible causes: unknown, bad food exposure, flare up of bowel problem, Crohn's disease, ulcerative colitis. The symptoms are aggravated by pressure, food , The symptoms are alleviated by nothing. remaining still. Associated signs and symptoms: The patient has no apparent associated signs or symptoms. Severity of symptoms: At their worst the symptoms were moderate in the emergency department the symptoms are unchanged. The patient has experienced similar episodes in the past, several times. Historical: - Allergies: 07:17 Codeine; ph 07:17 HYDROCODONE (Hives, itch); ph 07:17 Levaquin; ph - PMHx: 07:17 Crohn's; ulcerative colitis; ph - PSHx: 07:17 ileostomy; ph - Immunization history:: Adult Immunizations unknown. - Social history:: Smoking status: Patient denies any tobacco usage or history of. ROS: 09:12 Constitutional: Negative for fever, chills, and weight loss, Eyes: Negative for injury, snow pain, redness, and discharge, ENT: Negative for injury, pain, and discharge, Neck: Negative for injury, pain, and swelling, Cardiovascular: Negative for chest pain, palpitations, and edema, Respiratory: Negative for shortness of breath, cough, wheezing, and pleuritic chest pain, Back: Negative for injury and pain, : Negative for injury, bleeding, discharge, and swelling, MS/Extremity: Negative for injury and deformity, Skin: Negative for injury, rash, and discoloration, Neuro: Negative for headache, weakness, numbness, tingling, and seizure, Psych: Negative for depression, anxiety, suicide ideation, homicidal ideation, and hallucinations, Allergy/Immunology: Negative for hives, rash, and allergies, Endocrine: Negative for neck swelling, polydipsia, polyuria, polyphagia, and marked weight changes, Hematologic/Lymphatic: Negative for swollen nodes, abnormal bleeding, and unusual bruising, 09:12 Abdomen/GI: Positive for abdominal pain, nausea and vomiting, of the right upper quadrant, left upper quadrant, right lower quadrant and left lower quadrant, Exam: 09:12 Constitutional: This is a well developed, well nourished patient who is awake, alert, snow and in no acute distress. Head/Face: Normocephalic, atraumatic. Eyes: Pupils equal round and reactive to light, extra-ocular motions intact. Lids and lashes normal. Conjunctiva and sclera are non-icteric and not injected. Cornea within normal limits. Periorbital areas with no swelling, redness, or edema. ENT: Nares patent. No nasal discharge, no septal abnormalities noted. Tympanic membranes are normal and external auditory canals are clear. Oropharynx with no redness, swelling, or masses, exudates, or evidence of obstruction, uvula midline. Mucous membranes moist. Neck: Trachea midline, no thyromegaly or masses palpated, and no cervical lymphadenopathy. Supple, full range of motion without nuchal rigidity, or vertebral point tenderness. No Meningismus. Chest/axilla: Normal chest wall appearance and motion. Nontender with no deformity. No lesions are appreciated. Cardiovascular: Regular rate and rhythm with a normal S1 and S2. No gallops, murmurs, or rubs. Normal PMI, no JVD. No pulse deficits. Respiratory: Lungs have equal breath sounds bilaterally, clear to auscultation and percussion. No rales, rhonchi or wheezes noted. No increased work of breathing, no retractions or nasal flaring. Back: No spinal tenderness. No costovertebral tenderness. Full range of motion. Female : Normal external genitalia. Skin: Warm, dry with normal turgor. Normal color with no rashes, no lesions, and no evidence of cellulitis. MS/ Extremity: Pulses equal, no cyanosis. Neurovascular intact. Full, normal range of motion. Neuro: Awake and alert, GCS 15, oriented to person, place, time, and situation. Cranial nerves II-XII grossly intact. Motor strength 5/5 in all extremities. Sensory grossly intact. Cerebellar exam normal. Normal gait. Psych: Awake, alert, with orientation to person, place and time. Behavior, mood, and affect are within normal limits. 09:12 ECG was reviewed by the Attending Physician. 09:12 Abdomen/GI: Inspection: distension, that is mild, Bowel sounds: normal, Palpation: moderate abdominal tenderness, in the right upper quadrant, left upper quadrant, right lower quadrant and left lower quadrant, Liver: no appreciated palpable abnormalities, Hernia: not appreciated, Vital Signs: 07:21 BP 170 / 92; Pulse 64; Resp 16; Temp 98.4(O); Pulse Ox 100% on R/A; Weight 68.04 kg; vc1 Height 5 ft. 2 in. ; Pain 10/10; 09:13 BP 151 / 76; Pulse 74; Resp 18; Pulse Ox 98% on R/A; ph 11:28 BP 141 / 97; Pulse 72; Resp 18; Pulse Ox 100% on R/A; ph 13:25 BP 136 / 72; Pulse 79; Resp 18; Temp 97.8; Pulse Ox 99% on R/A; ph 14:30 BP 142 / 89; Pulse 76; Resp 18; Pulse Ox 98% on R/A; ph 15:30 BP 132 / 78; Pulse 72; Resp 16; Pulse Ox 99% on R/A; ph 16:30 BP 140 / 72; Pulse 76; Resp 18; Pulse Ox 98% on R/A; ph 07:21 Body Mass Index 27.44 (68.04 kg, 157.48 cm) vc1 07:21 Pain Scale: Adult vc1 MDM: 07:13 Patient medically screened. snow 09:13 Differential diagnosis: Nonspecific abd pain, gastritis, pancreatitis, diverticulitis, snow viral gastroenteritis, gastroenteritis. Data reviewed: vital signs, nurses notes, lab test result(s), EKG, radiologic studies, CT scan. Consideration of Admission/Observation Patient was admitted/placed on observation. Escalation of care including admission/observation considered. I considered the following discharge prescriptions or medication management in the emergency department Medications were administered in the Emergency Department. See MAR. Independent interpretation of the following test(s) in the Emergency Department EKG: See my EKG interpretation above. Test considered but Not performed: Ultrasound no abd usg. Historians other than the Patient: patient well informed. Care significantly affected by the following chronic conditions: Diabetes, Hypertension, Obesity, crohns, uc. 09/23 07:15 Order name: CBC with Diff; Complete Time: 09:32 [facility] 09/23 07:15 Order name: CMP; Complete Time: 09:32 [facility] 09/23 07:15 Order name: Lipase; Complete Time: 09:32 [facility] 09/23 07:15 Order name: Urinalysis w/ reflexes 09/23 07:25 Order name: Troponin High Sensitivity; Complete Time: 09:32 [facility] 09/23 07:15 Order name: CT Abd/Pelvis - IV Contrast Only; Complete Time: 09:32 [facility] 09/23 09:47 Order name: US Abdomen Limited; Complete Time: 10:39 [facility] 09/23 07:25 Order name: EKG; Complete Time: 07:25 [facility] 09/23 07:15 Order name: IV Saline Lock; Complete Time: 07:29 [facility] 09/23 07:15 Order name: Labs collected and sent; Complete Time: 07:29 [facility] 09/23 07:25 Order name: EKG - Nurse/Tech; Complete Time: 07:46 [facility] EC:12 Rate is 62 beats/min. Rhythm is regular. QRS [place] is Normal. VT interval is normal. QRS snow interval is normal. QT interval is normal. No Q waves. T waves are Normal. No ST changes noted. Clinical impression: Normal ECG and No evidence of ischemia. Interpreted by me. Reviewed by me. Administered Medications: 07:47 Drug: NS 0.9% IV 1000 ml IV at 1 bolus Per protocol; 1000 mL bolus Route: IV; Rate: 1 ph bolus; Site: PICC; 09:30 Follow up: Response: No adverse reaction; IV Status: Completed infusion; IV Intake: ph 1000ml 07:47 Drug: Famotidine IVP 20 mg IVP once; dilute with 10 mL 0.9% NaCl; give over 2 minutes ph Route: IVP; Site: PICC; 16:53 Follow up: Response: No adverse reaction ph 07:47 Drug: Ondansetron IVP 4 mg IVP once; over 2 minutes Route: IVP; Site: PICC; ph 16:53 Follow up: Response: No adverse reaction ph 07:47 Drug: morphine IVP or IV 4 mg IVP once over 4 mins Route: IVP; Infused Over: 4 mins; ph Site: PICC; 16:53 Follow up: Response: No adverse reaction ph 08:19 Drug: Promethazine IVP 12.5 mg IVP once Route: IVP; Site: PICC; ph 11:27 Follow up: Response: No adverse reaction ph 11:08 Drug: Rocephin IV 1 grams IV at per protocol once; Given slow IV push per pharmacy ph instructions Route: IV; Rate: per protocol; Site: PICC; 11:27 Follow up: Response: No adverse reaction; IV Status: Completed infusion ph 11:08 Drug: NS 0.9% IV 1000 ml IV at 125 ml/hr continuous Route: IV; Rate: 125 ml/hr; [facility]; 11:26 Follow up: Response: No adverse reaction; IV Status: Infusion continued upon transfer ph 11:27 Drug: metroNIDAZOLE IVPB 500 mg 100 ml IVPB at 200 ml/hr once over 30 mins Volume: 100 ph ml; Route: IVPB; Rate: 200 ml/hr; Infused Over: 30 mins; Site: [facility]; 12:00 Follow up: Response: No adverse reaction; IV Status: Completed infusion ph 16:10 Drug: morphine IVP or IV 4 mg IVP once over 4 mins Route: IVP; Infused Over: 4 mins; ph Site: PICC; 16:52 Follow up: Response: No adverse reaction; Pain is decreased ph 16:10 Drug: Promethazine IVP 12.5 mg IVP once Route: IVP; Site: PICC; ph 16:51 Follow up: Response: No adverse reaction ph Disposition Summary: 09/24/23 10:05 Transfer Ordered Notes: Transfer Location: [facility] snow Reason: Higher level of care snow Condition: Fair snow Problem: new snow Symptoms: have improved snow Accepting Physician: to im(09/24/23 16:53) ph Diagnosis - Epigastric abdominal tenderness snow - Crohn's disease of both small and large intestine snow - Vomiting snow - Weakness snow - Other cholelithiasis with obstruction - DILATED CBD snow Forms: - Medication Reconciliation Form snow - SBAR form snow Signatures: Dispatcher [employer] EDAashish Rosa MD MD cha Hall, Patricia, RN RN ph Calcote, Jacey, RN RN vc1 Corrections: (The following items were deleted from the chart) :16 07:24 TYPE AND SCREEN+BB.LAB.CONTRERAS ordered. EDMS EDMS 10:05 10:05 to im snow snow 10:12 10:05 to im snow snow 16:53 10:12 to im snow ph
--- NOTE | 2023-09-24 10:05 | ER ---
Nurse's Notes [facility] Name: Stephanie Doshi Age: 58 yrs Sex: Female : 1965 Arrival Date: 09/24/2023 Time: 07:09 Bed 13 Private MD: Jamie Conti Diagnosis: Epigastric abdominal tenderness;Crohn's disease of both small and large intestine;Vomiting;Weakness;Other cholelithiasis with obstruction-DILATED CBD Presentation: 09/23 07:21 Chief complaint: Diffuse abdominal pain that radiates to back and N/V that started 3 vc1 hours ago. Also reports one bowel movement via rectum, colostomy empty. Coronavirus screen: At this time, the client does not indicate any symptoms associated with coronavirus-19. Ebola Screen: No symptoms or risks identified at this time. Initial Sepsis Screen: Does the patient meet any 2 criteria? No. Patient's initial sepsis screen is negative. Does the patient have a suspected source of infection? No. Patient's initial sepsis screen is negative. Risk Assessment: Do you want to hurt yourself or someone else? Patient reports no desire to harm self or others. Onset of symptoms was September 24, 2023. 07:21 Method Of Arrival: Ambulatory vc1 07:21 Acuity: RENÉ 3 vc1 Triage Assessment: 07:21 General: Appears in no apparent distress. ill, Behavior is calm, cooperative. Pain: vc1 Pain currently is 10 out of 10 on a pain scale. Neuro: Level of Consciousness is awake, alert, obeys commands, Oriented to person, place, time, situation. Cardiovascular: Patient's skin is warm and dry. Respiratory: Respiratory effort is even, unlabored, Respiratory pattern is regular, symmetrical. GI: Reports lower abdominal pain, upper abdominal pain, diarrhea, nausea, vomiting. : No signs and/or symptoms were reported regarding the genitourinary system. Derm: Skin is dry, Skin is pale, Skin temperature is warm. Musculoskeletal: No signs and/or symptoms reported regarding the musculoskeletal system. Historical: - Allergies: 07:17 Codeine; ph 07:17 HYDROCODONE (Hives, itch); ph 07:17 Levaquin; ph - PMHx: 07:17 Crohn's; ulcerative colitis; ph - PSHx: 07:17 ileostomy; ph - Immunization history:: Adult Immunizations unknown. - Social history:: Smoking status: Patient denies any tobacco usage or history of. Screenin:26 [facility] ED Fall Risk Assessment (Adult) History of falling in the last 3 months, vc1 including since admission No falls in past 3 months (0 pts) Confusion or Disorientation No (0 pts) Intoxicated or Sedated No (0 pts) Impaired Gait No (0 pts) Mobility Assist Device Used No (0 pt) Altered Elimination No (0 pt) Score/Fall Risk Level 0 - 2 = Low Risk Oriented to surroundings, Maintained a safe environment, Educated pt \T\ family on fall prevention, incl call for assistance when getting out of bed. Abuse screen: Denies threats or abuse. Denies injuries from another. Nutritional screening: No deficits noted. Tuberculosis screening: No symptoms or risk factors identified. Assessment: 07:30 General: Appears in no apparent distress. comfortable, Behavior is calm, cooperative, ph appropriate for age. Pain: Complains of pain in left lower quadrant and right lower quadrant and left upper quadrant and right upper quadrant. Neuro: Level of Consciousness is awake, alert, obeys commands, Oriented to person, place, time, situation. Cardiovascular: Capillary refill < 3 seconds in bilateral fingers Patient's skin is warm and dry. Respiratory: Airway is patent Respiratory effort is even, unlabored, Respiratory pattern is regular, symmetrical. GI: Abdomen is non-distended, Ileostomy site is clean and dry. Ostomy appliance is intact. Reports upper abdominal pain, nausea, vomiting. 11:28 Reassessment: Patient appears in no apparent distress at this time. Patient and/or ph family updated on plan of care and expected duration. Pain level reassessed. Patient is alert, oriented x 3, equal unlabored respirations, skin warm/dry/pink. 14:01 Reassessment: Patient appears in no apparent distress at this time. No changes from previously documented assessment. Attempted to call report to [facility], nurse at lunch. 14:30 Reassessment: Patient appears in no apparent distress at this time. Patient and/or ph family updated on plan of care and expected duration. Pain level reassessed. Patient is alert, oriented x 3, equal unlabored respirations, skin warm/dry/pink. Attempted to call report, placed on hold >10 minutes, will call back. 15:20 Reassessment: Patient appears in no apparent distress at this time. Patient and/or ph family updated on plan of care and expected duration. Pain level reassessed. Patient is alert, oriented x 3, equal unlabored respirations, skin warm/dry/pink. Report given to WOLF Núñez, awaiting EMS for transport. 16:53 Reassessment: Patient appears in no apparent distress at this time. Patient and/or ph family updated on plan of care and expected duration. Pain level reassessed. Patient is alert, oriented x 3, equal unlabored respirations, skin warm/dry/pink. [facility] at bedside, report given to DIMAS ramirez-P. Vital Signs: 07:21 BP 170 / 92; Pulse 64; Resp 16; Temp 98.4(O); Pulse Ox 100% on R/A; Weight 68.04 kg; vc1 Height 5 ft. 2 in. ; Pain 10/10; 09:13 BP 151 / 76; Pulse 74; Resp 18; Pulse Ox 98% on R/A; ph 11:28 BP 141 / 97; Pulse 72; Resp 18; Pulse Ox 100% on R/A; ph 13:25 BP 136 / 72; Pulse 79; Resp 18; Temp 97.8; Pulse Ox 99% on R/A; ph 14:30 BP 142 / 89; Pulse 76; Resp 18; Pulse Ox 98% on R/A; ph 15:30 BP 132 / 78; Pulse 72; Resp 16; Pulse Ox 99% on R/A; ph 16:30 BP 140 / 72; Pulse 76; Resp 18; Pulse Ox 98% on R/A; ph 07:21 Body Mass Index 27.44 (68.04 kg, 157.48 cm) vc1 07:21 Pain Scale: Adult vc1 ED Course: 07:12 Patient arrived in ED. rg4 07:12 Jamie Conti MD is Private Physician. rg4 07:13 Aashish Boykin MD is Attending Physician. snow 07:16 Karly Whitehead RN is Primary Nurse. ph 07:21 Warm blanket given. vc1 07:21 Arm band placed on. vc1 07:24 Triage completed. vc1 07:25 Accessed PICC line. Blood collected. using per hospital protocol. Clean \T\ dry. Good ph blood return. Flushes easily. 07:26 Patient has correct armband on for positive identification. Bed in low position. Call vc1 light in reach. Side rails up X 1. Client placed on continuous cardiac and pulse oximetry monitoring. NIBP monitoring applied. Pulse ox on. NIBP on. 07:26 Initial lab(s) drawn, by ED staff, sent to lab. vc1 07:50 EKG done, by ED staff, reviewed by Aashish Boykin MD. hb 08:22 CT Abd/Pelvis - IV Contrast Only In Process Unspecified. EDMS 08:[address] via stretcher. hb 09:53 initiated a transfer with Wilfrid Hogan Rn from the [facility]. eb 10:21 US Abdomen Limited In Process Unspecified. EDMS 11:28 No provider procedures requiring assistance completed. Patient transferred, IV remains ph in place. 12:53 administrative approval given by Wilfrid Hogan Rn/ patient has been accepted to [facility] room 1530/ Dr. Sophy Morfin has accepted the patient in transfer/ report to be called through the transfer center at [phone]. Administered Medications: 07:47 Drug: NS 0.9% IV 1000 ml IV at 1 bolus Per protocol; 1000 mL bolus Route: IV; Rate: 1 ph bolus; Site: PICC; 09:30 Follow up: Response: No adverse reaction; IV Status: Completed infusion; IV Intake: ph 1000ml 07:47 Drug: Famotidine IVP 20 mg IVP once; dilute with 10 mL 0.9% NaCl; give over 2 minutes ph Route: IVP; Site: PICC; 16:53 Follow up: Response: No adverse reaction ph 07:47 Drug: Ondansetron IVP 4 mg IVP once; over 2 minutes Route: IVP; Site: PICC; ph 16:53 Follow up: Response: No adverse reaction ph 07:47 Drug: morphine IVP or IV 4 mg IVP once over 4 mins Route: IVP; Infused Over: 4 mins; ph Site: PICC; 16:53 Follow up: Response: No adverse reaction ph 08:19 Drug: Promethazine IVP 12.5 mg IVP once Route: IVP; Site: PICC; ph 11:27 Follow up: Response: No adverse reaction ph 11:08 Drug: Rocephin IV 1 grams IV at per protocol once; Given slow IV push per pharmacy ph instructions Route: IV; Rate: per protocol; Site: PICC; 11:27 Follow up: Response: No adverse reaction; IV Status: Completed infusion ph 11:08 Drug: NS 0.9% IV 1000 ml IV at 125 ml/hr continuous Route: IV; Rate: 125 ml/hr; Site: PIC; 11:26 Follow up: Response: No adverse reaction; IV Status: Infusion continued upon transfer ph 11:27 Drug: metroNIDAZOLE IVPB 500 mg 100 ml IVPB at 200 ml/hr once over 30 mins Volume: 100 ph ml; Route: IVPB; Rate: 200 ml/hr; Infused Over: 30 mins; Site: PICC; 12:00 Follow up: Response: No adverse reaction; IV Status: Completed infusion ph 16:10 Drug: morphine IVP or IV 4 mg IVP once over 4 mins Route: IVP; Infused Over: 4 mins; ph Site: PICC; 16:52 Follow up: Response: No adverse reaction; Pain is decreased ph 16:10 Drug: Promethazine IVP 12.5 mg IVP once Route: IVP; Site: PICC; ph 16:51 Follow up: Response: No adverse reaction ph Medication: 07:26 VIS not applicable for this client. vc1 Intake: 09:30 IV: 1000ml; Total: 1000ml. ph Outcome: 10:05 ER care complete, transfer ordered by MD. adamson 16:53 Patient left the ED. ph Signatures: Dispatcher [employer] Aashish Mae MD MD cha Hall, Patricia, RN RN ph Baxter, Heather, RN RN hb Garcia, Rubi 4 Jennifer Buckley Vanessa, RN RN vc1
--- NOTE | 2023-09-24 10:31 | RAD REPORT ---
EXAM DESCRIPTION: US - Abdomen Exam Limited - 09/24/2023 10:19 am CLINICAL HISTORY: Abdominal pain. COMPARISON: 2019 FINDINGS: Gallbladder is distended containing multiple stones. One lies in the gallbladder neck. Borderline gallbladder wall thickening The biliary tree is normal caliber. IMPRESSION: Gallbladder distention with cholelithiasis. Borderline gallbladder wall thickening may indicate cholecystitis
[2023-09-24 15:24] LABS: Urine Bacteria <20 /HPF (<20); Urine Bilirubin NEGATIVE (Negative); Urine Blood Trace (Negative); Urine Clarity Clear (Clear); Urine Color Colorless (Yellow); Urine Glucose NEGATIVE (Negative); Urine Mucus Slight /HPF (None Seen); Urine Protein NEGATIVE (Negative); Urine RBC <5 /HPF (None Seen); Urine Urobilinogen Normal (Normal)
[2023-09-24 15:29] LABS: Specific Gravity > 1.030 (1.005-1.030)
[2023-09-24 17:34] VITALS: BP 140/72; TEMP 97.8; O2SAT 98
== END ==
LOC: ER 07:09
DX: K80.81 Other cholelithiasis with obstruction (principal); K50.80 Crohn's disease of both small and large intestine without complications; R53.1 Weakness; R11.10 Vomiting, unspecified; Z88.1 Allergy status to other antibiotic agents; Z88.5 Allergy status to narcotic agent
CPT/HCPCS: 85025; 81001; 36415; 84484; 83690; 80053; 74177; 76705; Q9967; J2550 ×2; J2405; J7030 ×2; J0696; 96361; 96365; 96367; 96375; 99285